=== PATIENT | male | born 1935 | race Caucasian/White ===

== ENCOUNTER 2017-01-19 13:21 | Emergency (ER) | payer MEDICARE, OTHER ==
[2017-01-19 13:26] VITALS: BP 195/105
--- NOTE | 2017-01-19 13:27 | EDM.PDOC ---
ED HPI GENERAL MEDICAL PROBLEM - General Chief Complaint: Laceration Stated Complaint: RAPID RESPONSE Time Seen by Provider: 01/19/17 13:27 - History of Present Illness INITIAL COMMENTS - FREE TEXT/NARRATIVE: 81-year-old male presents to the emergency room after tripping and falling coming into the clinic side of the hospital this afternoon. The patient lost his footing shortly before arrival to the emergency room. The patient was stepping off a curb and fell forward landing on his face. He scratched up his glasses lacerated his skin underneath his right eye and over the right side of the bridge of his nose he also has a laceration inside his mouth. Patient was not knocked out he did not have any dizziness prior to this he is taking aspirin but otherwise is on no other blood thinners. The patient does not have a significant headache at this point and any other injuries. Patient's past medical history is remarkable for open heart bypass surgery done this last one or he is doing well since then he has not any breathing difficulties or shortness of breath no chest pain. - Related Data Allergies Allergy/AdvReac Type Severity Reaction Status Date / Time No Known Allergies Allergy Verified 01/19/17 13:25 Home Meds: Home Meds Acetaminophen [Tylenol] 500 mg PO BID PRN 08/16/15 [History] Bicalutamide [Bicalutamide] 50 mg PO DAILY 08/16/15 [History] Aspirin/Calcium Carbonate/Mag [Aspirin Buffered 325 mg Tab] 325 mg PO DAILY 12/12 [History] Metoprolol Tartrate 25 mg PO BID 11/29/16 [History] Rosuvastatin Calcium 5 mg PO DAILY 11/29/16 [History] Vit A/Vit C/Vit E/Zinc/Copper [Preservision] 1 tab PO BID 01/19/17 [History] amLODIPine [Norvasc] 2.5 mg PO DAILY 01/19/17 [History] Past Medical History HEENT History: Reports: Hard of Hearing, Impaired Vision Cardiovascular History: Reports: Hypertension Genitourinary History: Reports: Prostate Disorder, Other (See Below) Other Genitourinary History: prostate cancer Oncologic (Cancer) History: Reports: Prostate - Past Surgical History Male Surgical History: Reports: Other (See Below) Social & Family History - Tobacco Use Smoking Status *Q: Never Smoker Second Hand Smoke Exposure: No - Caffeine Use Caffeine Use: Reports: Coffee, Tea - Recreational Drug Use Recreational Drug Use: No ED ROS GENERAL - Review of Systems Review Of Systems: See Below Constitutional: Reports: No Symptoms. Denies: Fever, Chills HEENT: Reports: Glasses, Nosebleed, Nose Pain. Denies: Dental Pain, Eye Pain, Hearing Loss, Sinus Problem, Throat Pain, Throat Swelling, Vision Change Respiratory: Reports: No Symptoms Cardiovascular: Reports: No Symptoms GI/Abdominal: Reports: No Symptoms : Reports: No Symptoms Skin: Reports: No Symptoms Neurological: Reports: No Symptoms ED EXAM, SKIN/RASH Exam: See Below Exam Limited By: No Limitations General Appearance: Alert, No Apparent Distress, Other (patient has some obvious facial injuries appear fairly superficial) Eye Exam: Bilateral Eye: EOMI, Normal Inspection, PERRL Ears: Normal External Exam, Normal Canal, Hearing Grossly Normal, Normal TMs, Other (the patient uses hearing aids these were removed for exam) Nose: Other (he has some dried blood from both nares no active bleeding no septal hematoma noted he has a laceration over the right side of the bridge of his nose). No: Nasal Deformity Throat/Mouth: Normal Lips, Normal Oropharynx, No Airway Compromise, Other ( patient has a laceration to the mid size of this oromucosa just beyond the upper lip this is superficial patient declines repair of this) Head: Other (patient has a little bit of facial swelling around his right eye he has a 2.5 cm laceration over the inferolateral orbital rim.) Neck: Normal Inspection, Supple, Non-Tender, Full Range of Motion. No: Lymphadenopathy (L), Lymphadenopathy (R), Tender Lateral, Tender Midline, Thyromegaly Respiratory/Chest: No Respiratory Distress, Lungs Clear, Normal Breath Sounds Cardiovascular: Regular Rate, Rhythm, No Edema, No Murmur GI/Abdominal: Normal Bowel Sounds, Soft, Non-Tender, No Organomegaly, No Distention, No Abnormal Bruit, No Mass Back Exam: Normal Inspection, Full Range of Motion. No: CVA Tenderness (L), CVA Tenderness (R), Muscle Spasm, Paraspinal Tenderness, Vertebral Tenderness Extremities: Normal Inspection, Normal Range of Motion, Non-Tender, No Pedal Edema, Normal Capillary Refill Neurological: Alert, Oriented, CN II-XII Intact, Normal Cognition Psychiatric: Normal Affect, Normal Mood Location, Skin: Face, Other (he is a 2.5 cm laceration below his right eye over the inferolateral orbital rim and a 1.2 cm laceration over the right side of the bridge of his nose) Lymphatic: No Adenopathy ED SKIN PROCEDURES - Laceration/Wound Repair Right Face Lac/wound length in cm: 2.5 Anesthetic Type: local Local anesthesia - Lidocaine (Xylocaine): 1% plain Local anesthetic volume: 2cc Skin prep: saline Exploration/Debridement/Repair: wound explored, in a bloodless field, explored to base Closed with: sutures Suture size: 4-0 # of sutures: 4 Tetanus status addressed: Yes (this is updated) Complication Description: patient had a second laceration over the right side bridge of his nose this was anesthetized with 1 cc of 1% lidocaine without epinephrine 2 simple sutures of 4-0 nylon placed giving good wound approximation Course - Vital Signs Last Recorded V/S: Last Vital Signs Temp 36.4 C 01/19/17 13:22 Pulse 69 01/19/17 13:22 Resp 16 01/19/17 13:22 BP 195/105 H 01/19/17 13:22 Pulse Ox 95 01/19/17 13:22 - Orders/Labs/Meds Orders: Active Orders 24 hr Category Date Time Status Vaccines to be Administered [RC] PER UNIT ROUTINE Care 01/19/17 14:04 Active Meds: Medications Discontinued Medications Generic Name Dose Route Start Last Admin Trade Name Coy PRN Reason Stop Dose Admin Diphtheria/Tetanus/Acell Pertussis 0.5 ml 01/19/17 14:03 Boostrix IM 01/19/17 14:04 .ONCE ONE Lidocaine HCl 50 ml 01/19/17 14:03 01/19/17 14:30 Xylocaine 1% INJECT 01/19/17 14:04 50 ml ONETIME ONE Administration - Re-Assessments/Exams Free Text/Narrative Re-Assessment/Exam: 01/19/17 15:04 patient had a head CT that was unremarkable facial bones shows questionable nasal fracture given the patient is not having pain in this area small metallic bodies were noted in his upper lip on the left side of midline patient has a piece of the chisel and there and a couple other maneuvers cheerier foreign bodies were identified on the scan as well. Patient had the laceration of the bridge of his nose and under his right eye repaired without difficulty he declined closure of the oral mucosa. this is reasonable and should heal without difficulty. Departure - Departure Time of Disposition: 15:05 Disposition: Home, Self-Care 01 Clinical Impression: Head injury, Face lacerations - Discharge Information Forms: ED Department Discharge Additional Instructions: return to the emergency room with any questions or problems. You had a head injury from a fall today. So far your exam and CAT scans are reassuring. However, for the next 12 hours he need very close observation including but awoke and every 2 hours to ensure normal activity and behavior. And close observation for 12 hours after that. Return to the emergency room with any unusual symptoms. Sutures should be removed in 7 days. He can followup in the walk in clinic for this or your regular provider. Your blood pressure was elevated here in the department it sounds like they just put you on a new blood pressure medication followup in the clinic on Monday or Monday for a blood pressure check. - My Orders Last 24 Hours: My Active Orders 01/19/17 14:04 Vaccines to be Administered [RC] PER UNIT ROUTINE - Assessment/Plan Last 24 Hours: My Active Orders 01/19/17 14:04 Vaccines to be Administered [RC] PER UNIT ROUTINE
[2017-01-19] MEDS ORDERED: Diphtheria,Pertussis(Acell),Tetanus Vaccine 0.5 ML SDV inactive IM ONE (14:03)
[2017-01-19] MEDS ORDERED: Lidocaine 1% 50 ML MDV INJECT ONE (14:03)
--- NOTE | 2017-01-19 14:05 | CT ---
Head CT Technique: Multiple axial sections through the brain were obtained. Intravenous contrast was not utilized. Comparison: No previous intracranial imaging. Findings: Ventricles along with basal cisterns and sulci over the convexities are moderately prominent. Mild diminished density is noted within the periventricular and subcortical white matter which is compatible with small vessel ischemic demyelination change. Similar findings are noted within portions of the basal ganglia. No other abnormal parenchymal densities are seen. No evidence of intracranial hemorrhage. No midline shift or mass effect is seen. Bone window settings were reviewed which shows atherosclerotic calcification within the carotid siphon. No acute calvarial abnormality is appreciated. Minimal mucosal thickening is seen within the inferior left mastoid sinus which is likely incidental. Impression: 1. Senescent change as described above. No acute intracranial abnormality is identified. Diagnostic code #2
--- NOTE | 2017-01-19 14:09 | CT ---
CT facial bones Technique: Multiple axial sections through the facial bones were obtained. Reconstructed coronal and sagittal images were also obtained. Findings: Small retention cyst is noted within the left maxillary sinus which is incidental. Minimal mucosal thickening is seen inferiorly within the left mastoid sinus which is incidental. Right and left globes are symmetric. Mild nasal septal deviation is seen. Nasal bone fracture is identified. No additional facial bone fracture is seen. Small metallic foreign body projected within the upper lip to the left of midline. Several other metallic densities are noted within the left side of the parapharyngeal soft tissues. Impression: 1. Incidental sinus findings. 2. Small metallic foreign bodies as described above likely pre-existing. 3. Nasal bone fracture. Diagnostic code #3
== END 2017-01-19 15:52 | disposition home or self-care (01) ==
LOC: JD.ED 13:21
DX: S01.81XA Laceration without foreign body of other part of head, initial encounter (principal); I10 Essential (primary) hypertension; Z85.46 Personal history of malignant neoplasm of prostate; Z79.899 Other long term (current) drug therapy; Z79.82 Long term (current) use of aspirin; W18.09XA Striking against other object with subsequent fall, initial encounter
CPT/HCPCS: 12011; 70450; 70450-26; 70486; 70486-26; 90471; 90715; 99282; 99284-25

== ENCOUNTER 2017-03-05 16:01 | Emergency (ER) | payer MEDICARE, OTHER ==
[2017-03-05] MEDS ORDERED: Sodium Chloride 0.9% 10 ML Syringe FLUSH PRN (16:50)
[2017-03-05] MEDS ORDERED: Sodium Chloride 0.9% 500 ML IV ONE (16:50)
[2017-03-05] MEDS ORDERED: HYDROmorphone 1 MG/ML Syringe ONE (16:55)
[2017-03-05] MEDS: HYDROmorphone 1 MG/ML Syringe IVPUSH ONE ×4 (16:55→19:32)
[2017-03-05] MEDS ORDERED: Sodium Chloride 0.9% 1,000 ML ONE (16:55)
--- NOTE | 2017-03-05 17:05 | EDM.PDOC ---
ED HPI GENERAL MEDICAL PROBLEM - General Chief Complaint: Genitourinary Problem Stated Complaint: [facility] Time Seen by Provider: 03/05/17 16:09 Source of Information: Reports: Patient, EMS, RN Notes Reviewed - History of Present Illness INITIAL COMMENTS - FREE TEXT/NARRATIVE: 81-year-old gentleman has been brought in by ambulance with severe left flank and abdominal pain. He had onset of this several hours ago. He had Been feeling fine earlier today. He has not had major back pain with this. The pain at times is very sharp and stabbing. He has had nausea and vomiting with this as well. He did have some voiding urgency about when the pain started but has not otherwise had any other voiding symptomatology. No hematuria. Fever or chills. He feels like he has had a small hernia developing in the left groin but that does not seem any different today. No chest pain or difficulty breathing. Treatments HEAD ANIMAL TRAINER: Reports: IV/IO, Other (see below) Other Treatments HEAD ANIMAL TRAINER: dilaudid left groin/testicle area Pain Score (Numeric/FACES): 6 - Related Data Allergies Allergy/AdvReac Type Severity Reaction Status Date / Time No Known Allergies Allergy Verified 03/05/17 16:23 Home Meds: Home Meds Acetaminophen [Tylenol] 500 mg PO BID PRN 08/16/15 [History] Bicalutamide [Bicalutamide] 50 mg PO DAILY 08/16/15 [History] Aspirin/Calcium Carbonate/Mag [Aspirin Buffered 325 mg Tab] 325 mg PO DAILY 12/12 [History] Metoprolol Tartrate 25 mg PO BID 11/29/16 [History] Rosuvastatin Calcium 5 mg PO DAILY 11/29/16 [History] Vit A/Vit C/Vit E/Zinc/Copper [Preservision] 1 tab PO BID 01/19/17 [History] amLODIPine [Norvasc] 2.5 mg PO DAILY 01/19/17 [History] Multivitamin [Multivitamins] 1 each PO DAILY 03/05/17 [History] Past Medical History HEENT History: Reports: Hard of Hearing, Impaired Vision, Otitis Media Cardiovascular History: Reports: Bypass, Hypertension, MT, Other (See Below) Other 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 Genitourinary History: Reports: Prostate Disorder, Other (See Below) Other Genitourinary History: prostate cancer Oncologic (Cancer) History: Reports: Prostate, Other (See Below) Other Oncologic History: with prostate seed placement - Past Surgical History Cardiovascular Surgical History: Reports: Coronary Artery Bypass GI Surgical History: Reports: Appendectomy Male Surgical History: Reports: Other (See Below) Other Male Surgeries/Procedures: hernia repair Social & Family History - Family History Family Medical History: Noncontributory - Tobacco Use Smoking Status *Q: Never Smoker Used Tobacco, but Quit: Yes Month Tobacco Last Used: 60 yrs ago Second Hand Smoke Exposure: No - Caffeine Use Caffeine Use: Reports: Coffee - Recreational Drug Use Recreational Drug Use: No ED ROS GENERAL - Review of Systems Review Of Systems: See Below Constitutional: Denies: Fever, Chills, Diaphoresis HEENT: Reports: No Symptoms Respiratory: Denies: Shortness of Breath, Pleuritic Chest Pain Cardiovascular: Denies: Chest Pain, Lightheadedness GI/Abdominal: Reports: Abdominal Pain (Left flank), Nausea, Vomiting. Denies: Diarrhea, Hematochezia, Melena : Reports: Urgency (Gone). Denies: Dysuria, Hematuria Musculoskeletal: Denies: Back Pain, Leg Pain Skin: Reports: No Symptoms Neurological: Reports: No Symptoms ED EXAM, RENAL/ - Physical Exam Exam: See Below Exam Limited By: No Limitations General Appearance: Alert, Moderate Distress Eye Exam: Bilateral Eye: PERRL Throat/Mouth: Normal Inspection, Other (Oral mucosa is quite dry) Head: Atraumatic. No: Facial Swelling Neck: Supple, Full Range of Motion Respiratory/Chest: No Respiratory Distress, Lungs Clear, Normal Breath Sounds Cardiovascular: Regular Rate, Rhythm GI/Abdominal: Soft, Tender (Mild tenderness left lower quadrant) Back Exam: CVA Tenderness (L) (Mild) Extremities: Normal Inspection, Normal Range of Motion. No: Pedal Edema, Leg Pain Neurological: Alert, Oriented, No Motor/Sensory Deficits Skin Exam: Warm, Dry, Normal Color Course - Vital Signs Last Recorded V/S: Last Vital Signs Temp 97.2 F 03/05/17 19:23 Pulse 79 03/05/17 19:23 Resp 20 03/05/17 19:23 BP 120/93 H 03/05/17 19:23 Pulse Ox 96 03/05/17 19:23 - Orders/Labs/Meds Orders: Active Orders 24 hr Category Date Time Status Peripheral IV Care [RC] . DIRECTED Care 03/05/17 16:50 Active Levofloxacin/Dextrose 5%-Water [Levaquin in D5W 500 MG/ Med 03/05/17 19:03 Active 100 ML] 500 mg Premix Bag 1 bag IV ONETIME Sodium Chloride 0.9% [Saline Flush] Med 03/05/17 16:50 Active 10 ml FLUSH ASDIRECTED PRN Peripheral IV Insertion Adult [OM.PC] Stat Oth 03/05/17 16:49 Ordered Medication Orders Levofloxacin/Dextrose 500 mg/ (Premix) 100 mls @ 100 mls/hr IV ONETIME ONE Stop: 03/05/17 20:02 Last Admin: 03/05/17 19:16 Dose: 100 mls/hr Sodium Chloride (Saline Flush) 10 ml FLUSH ASDIRECTED PRN PRN Reason: Keep Vein Open Last Admin: 03/05/17 16:58 Dose: 10 ml Labs: Laboratory Tests 03/05/17 03/05/17 Range/Units 17:25 17:25 WBC 7.77 (4.23-9.07) K/mm3 RBC 4.17 L (4.63-6.08) M/mm3 Hgb 12.7 L (13.7-17.5) gm/L Hct 38.1 L (40.1-51.0) % MCV 91.4 (79.0-92.2) fl MCH 30.5 (25.7-32.2) pg MCHC 33.3 (32.2-35.5) g/dl RDW Std Deviation 43.9 (35.1-43.9) fL Plt Count 180 (163-337) K/mm3 MPV 10.2 (9.4-12.3) fl Neut % (Auto) 90.1 H (34.0-67.9) % Lymph % (Auto) 6.2 L (21.8-53.1) % Gregg % (Auto) 3.3 L (5.3-12.2) % Eos % (Auto) 0 L (0.8-7.0) Baso % (Auto) 0.3 (0.1-1.2) % Neut # (Auto) 7.00 H (1.78-5.38) K/mm3 Lymph # (Auto) 0.48 L (1.32-3.57) K/mm3 Gregg # (Auto) 0.26 L (0.30-0.82) K/mm3 Eos # (Auto) 0.00 L (0.04-0.54) K/mm3 Baso # (Auto) 0.02 (0.01-0.08) K/mm3 Manual Slide Review Abnormal smear Sodium 142 (136-145) mEq/L Potassium 3.8 (3.5-5.1) mEq/L Chloride 106 (98-107) mEq/L Carbon Dioxide 26 (21-32) mEq/L Anion Gap 13.8 (5-15) BUN 18 (7-18) mg/dL Creatinine 1.3 (0.7-1.3) mg/dL Est Cr Clr Drug Dosing 44.46 mL/min Estimated GFR (MDRD) 53 (>60) mL/min BUN/Creatinine Ratio 13.8 L (14-18) Glucose 130 H (83-115) mg/dL Calcium 9.2 (8.5-10.1) mg/dL Total Bilirubin 0.6 (0.2-1.0) mg/dL AST 21 (15-37) U/L ALT 18 (16-63) U/L Alkaline Phosphatase 70 (46-116) U/L C-Reactive Protein < 0.2 (<1.0) mg/dL Total Protein 7.4 (6.4-8.2) g/dl Albumin 4.1 (3.4-5.0) g/dl Globulin 3.3 gm/dL Albumin/Globulin Ratio 1.2 (1-2) Meds: Medications Generic Name Dose Route Start Last Admin Trade Name Freq PRN Reason Stop Dose Admin Levofloxacin/Dextrose 500 mg/ 100 mls @ 100 mls/hr 03/05/17 19:03 03/05/17 19 :16 Premix IV 03/05/17 20:02 100 mls/hr ONETIME ONE Administration Sodium Chloride 10 ml 03/05/17 16:50 03/05/17 16:58 Saline Flush FLUSH 10 ml ASDIRECTED PRN Administration Keep Vein Open Discontinued Medications Generic Name Dose Route Start Last Admin Trade Name Freq PRN Reason Stop Dose Admin Hydromorphone HCl 1 mg 03/05/17 16:50 03/05/17 19:32 Dilaudid IVPUSH 03/05/17 16:51 0.25 mg ONETIME ONE Administration Hydromorphone HCl Confirm 03/05/17 16:55 03/05/17 16:56 Dilaudid Administered 03/05/17 16:56 Not Given Dose 1 mg .ROUTE .STK-MED ONE Sodium Chloride 500 mls @ 999 mls/hr 03/05/17 16:50 03/05/17 16:58 Normal Saline IV 03/05/17 17:20 999 mls/hr .BOLUS ONE Administration Sodium Chloride Confirm 03/05/17 16:55 03/05/17 16:58 Normal Saline Administered 03/05/17 16:56 Not Given Dose 1,000 mls @ as directed .ROUTE .STK-MED ONE Ondansetron HCl 4 mg 03/05/17 19:07 03/05/17 19:17 Zofran IVPUSH 03/05/17 19:08 4 mg ONETIME ONE Administration Tamsulosin HCl 0.4 mg 03/05/17 19:03 03/05/17 19:06 Flomax PO 03/05/17 19:04 0.4 mg ONETIME ONE Administration Tamsulosin HCl Confirm 03/05/17 19:08 03/05/17 19:17 Flomax Administered 03/05/17 19:09 Not Given Dose 0.4 mg .ROUTE .STK-MED ONE - Re-Assessments/Exams Free Text/Narrative Re-Assessment/Exam: 03/05/17 18:54 Radiology report statrs 6 mm proximal stone with evidence of ruptere of the pelvicalyceal system with fluid in the lower left pararenal space, see radiology report for details. 03/05/17 19:31, I have discussed this with Urologist on-call for [facility]. He does recommend transfer this evening. He recommends Flomax 0.4 mg oral and then also to start on IV antibiotics. Levaquin 500 milligrams IV has been prescribed and started. I have visited with Dr. Milner, Hospitalist global expansion sales director who does accept patient for transfer, direct admission. He will be transferred by ground ambulance. Departure - Departure Time of Disposition: 19:29 Disposition: DC/Tfer to [facility] 02 Condition: Serious Clinical Impression: Kidney stone on left side, Renal colic on left side - Discharge Information Referrals: J Carlos Howard MD [Primary Care Provider] - Forms: ED Department Discharge - My Orders Last 24 Hours: My Active Orders 03/05/17 16:49 Peripheral IV Insertion Adult [OM.PC] Stat 03/05/17 16:50 Peripheral IV Care [RC] . DIRECTED Sodium Chloride 0.9% [Saline Flush] 10 ml FLUSH ASDIRECTED PRN 03/05/17 19:03 Levofloxacin/Dextrose 5%-Water [Levaquin in D5W 500 MG/100 ML] 500 mg Premix Bag 1 bag IV ONETIME - Assessment/Plan Last 24 Hours: My Active Orders 03/05/17 16:49 Peripheral IV Insertion Adult [OM.PC] Stat 03/05/17 16:50 Peripheral IV Care [RC] . DIRECTED Sodium Chloride 0.9% [Saline Flush] 10 ml FLUSH ASDIRECTED PRN 03/05/17 19:03 Levofloxacin/Dextrose 5%-Water [Levaquin in D5W 500 MG/100 ML] 500 mg Premix Bag 1 bag IV ONETIME
--- NOTE | 2017-03-05 18:11 | CT ---
CT abdomen and pelvis Technique: Multiple axial sections were obtained from above the kidneys inferiorly through the pubic symphysis. Intravenous and oral contrast not utilized. Study has been performed as a ureteral stone protocol. Findings: Obstructing stone is noted within the proximal left ureter slightly past the UPJ measuring approximately 6 mm in size. There is evidence of rupture of the pelvicalyceal system with fluid being seen within the lower left pararenal space. Hydronephrosis is noted of the left kidney. No other abnormal calcifications are seen along the course of the ureters. Nonobstructing stone noted within the lower right kidney measuring 5 mm in size. Small nonobstructing calculus noted within the mid left kidney measuring about 2.5 mm. Small nonobstructing stone within the lower left kidney measuring 4.6 mm. Visualized lung bases show some emphysematous change. Low-density is lesion noted within the left lobe of the liver compatible with a cyst measuring 1.2 cm. No additional abnormality is appreciated within the visualized liver. Adrenal glands show no nodule. Spleen appears normal. Aorta shows atherosclerotic change which continues into the iliac vessels. No aneurysm is seen. No pelvic mass or adenopathy is seen. Radiation implant seeds are noted within the prostate gland. Fat-containing left inguinal hernia is incidentally noted. Bone window settings were reviewed which shows scattered degenerative change within the spine. Mild spondylolisthesis is noted at L3-L4 compatible with degenerative apophyseal change. Impression: 1. Obstructing stone within the proximal left ureter measuring approximately 6 mm. There is evidence of rupture of the pelvicalyceal system with urine being seen within the left lower pararenal space. 2. Nonobstructing calculi are seen within both kidneys. 3. Other incidental findings as described above. Diagnostic code #3
[2017-03-05] MEDS ORDERED: Tamsulosin 0.4 MG Cap.ER PO ONE (19:03)
[2017-03-05] MEDS ORDERED: Levofloxacin/Dextrose 5%-Water 500 MG in Premix Bag 1 BAG IV ONE (19:03)
[2017-03-05] MEDS ORDERED: Ondansetron 4 MG/2 ML SDV IVPUSH ONE (19:07)
[2017-03-05] MEDS ORDERED: Tamsulosin 0.4 MG Cap.ER ONE (19:08)
[2017-03-05 19:28] VITALS: BP 120/93
== END 2017-03-05 19:50 ==
LOC: JD.ED 16:01
DX: N13.2 Hydronephrosis with renal and ureteral calculous obstruction (principal); I10 Essential (primary) hypertension; I25.2 Old myocardial infarction; Z95.1 Presence of aortocoronary bypass graft; Z79.82 Long term (current) use of aspirin; Z79.899 Other long term (current) drug therapy
CPT/HCPCS: 36415; 74176; 80053; 85025; 86140; 96361; 96365; 96375; 96376; 99285; A9270; J1170; J1956; J2405; J7040; J7050; 99284

== ENCOUNTER 2018-10-08 17:04 | Emergency (ER) | payer MEDICARE, OTHER ==
[2018-10-08 17:23] VITALS: BP 162/70
--- NOTE | 2018-10-08 17:52 | EDM.PDOC ---
ED HPI GENERAL MEDICAL PROBLEM - General Chief Complaint: Lower Extremity Injury/Pain Stated Complaint: GROIN PAIN Time Seen by Provider: 10/08/18 17:14 Source of Information: Reports: Patient, Family (Daughter), RN Notes Reviewed History Limitations: Reports: No Limitations - History of Present Illness INITIAL COMMENTS - FREE TEXT/NARRATIVE: The patient states that he developed right groin pain (the patient indicates his proximal anteromedial right thigh, not his groin) around 10:00 this morning , and that is progressively getting worse. He denies any tingling or numbness to the right lower extremity, and states that while he is having difficulty walking due to pain, he denies having any weakness of the right lower extremity. The patient denies any injury to the area, but does acknowledges that he shoveled a small amount of snow yesterday last night, but states that he did not hurt himself. The patient's daughter states that the patient has been told in the past to not shovel snow. The patient reports having the same symptoms to the same area on both sides 4 or 5 years ago, and states that he was told at the time that it was due to hypokalemia. He states that he was given IV fluid and told to eat bananas, and his symptoms resolved. The patient reports that he has a history of kidney stones, but states that his current pain is very different than his presentation at that time. The patient states that he took some Tylenol this morning, then a second dose around 16:00 this afternoon. The patient's PCP is Dr. Rockwell. His Accounts Receivable Coordinator is Dr. Walker. His Oncologist is Dr. Brooke. 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 CLEANER: Reports: Acetaminophen Right Leg Pain Score (Numeric/FACES): 9 - Related Data Allergies Allergy/AdvReac Type Severity Reaction Status Date / Time No Known Allergies Allergy Verified 10/08/18 17:20 Home Meds: Home Meds Acetaminophen [Tylenol] 500 mg PO BID PRN 08/16/15 [History] Bicalutamide 50 mg PO DAILY 08/16/15 [History] Aspirin/Calcium Carbonate/Mag [Aspirin Buffered 325 mg Tab] 325 mg PO DAILY 12/12 [History] Metoprolol Tartrate 25 mg PO BID 11/29/16 [History] Rosuvastatin Calcium 5 mg PO BEDTIME 11/29/16 [History] Vit A/Vit C/Vit E/Zinc/Copper [Preservision] 1 tab PO BID 01/19/17 [History] amLODIPine [Norvasc] 2.5 mg PO DAILY 01/19/17 [History] Multivitamin [Multivitamins] 1 each PO DAILY 03/05/17 [History] Calcium Carb/Vit D3/Minerals [Calcium 600+D Plus Minerals] 1 each PO BID [History] Levothyroxine [Synthroid] 50 mcg PO ACBREAKFAST 10/08/18 [History] Past Medical History HEENT History: Reports: Hard of Hearing, Impaired Vision Cardiovascular History: Reports: CAD, High Cholesterol, Hypertension, [place] (2016) Genitourinary History: Reports: Renal Calculus Endocrine/Metabolic History: Reports: Hypothyroidism Oncologic (Cancer) History: Reports: Prostate - Past Surgical History Cardiovascular Surgical History: Reports: Coronary Artery Bypass (x 3 vessel, ) GI Surgical History: Reports: Appendectomy, Hernia, Inguinal (left), Other (See Below) (Rectal reconstruction following trauma) Male Surgical History: Reports: Other (See Below) (Prostate radioactive seed implants) Musculoskeletal Surgical History: Reports: Shoulder Surgery (right, open) Social & Family History - Family History Family Medical History: Noncontributory - Tobacco Use Smoking Status *Q: Former Smoker Years of Tobacco use: 9 Packs/Tins Daily: 1 Month/Year Tobacco Last Used: Quit around 1961 - Caffeine Use Caffeine Use: Reports: Coffee - Alcohol Use Alcohol Use History: No - Recreational Drug Use Recreational Drug Use: No - Living Situation & Occupation Living situation: Reports: , Alone Occupation: Retired Review of Systems - Review of Systems Review Of Systems: ROS reveals no pertinent complaints other than HPI. ED EXAM, GENERAL - Physical Exam Exam: See Below Exam Limited By: No Limitations General Appearance: Alert, WD/WN, No Apparent Distress Eye Exam: Bilateral Eye: EOMI, Normal Inspection Ears: Normal External Exam, Hearing Loss Nose: Normal Inspection Throat/Mouth: Normal Inspection, Normal Lips, Normal Voice, No Airway Compromise Head: Atraumatic, Normocephalic Neck: Normal Inspection, Full Range of Motion Respiratory/Chest: No Respiratory Distress, Lungs Clear, Normal Breath Sounds, No Accessory Muscle Use Cardiovascular: Normal Peripheral Pulses, Regular Rate, Rhythm, No Edema, No Gallop, No JVD, No Murmur, No Rub Peripheral Pulses: 4+: Radial (L), Radial (R), Femoral (L), Femoral (R), Popliteal (R), Posterior Tibial (R), Dorsalis Pedis (R) GI/Abdominal: Normal Bowel Sounds, Soft, Non-Tender, No Organomegaly, No Distention, No Abnormal Bruit, No Mass (Male) Exam: No Hernia, Normal Inspection Rectal (Males) Exam: Deferred Extremities: Normal Inspection, Normal Range of Motion, Non-Tender, No Pedal Edema, Normal Capillary Refill, Other (Well-healed scar to the right proximal anteromedial thigh, with a palpable lump deep to the scar that the patient states has been there ever since his CABG in 2017. There is reproducible tenderness to this area. Strong bilateral femoral pulses. Strong right popliteal, posterior tibialis, and dorsalis pedis pulses. The patient's right lower extremity is warm and well perfused, essentially the same as the left lower extremity.) Neurological: Alert, Oriented, Normal Cognition, No Motor/Sensory Deficits Psychiatric: Normal Affect Skin Exam: Warm, Dry, Intact, Normal Color, No Rash Course - Vital Signs Last Recorded V/S: Last Vital Signs Temp 36.6 C 10/08/18 17:16 Pulse 69 10/08/18 17:16 Resp 16 10/08/18 17:16 BP 162/70 H 10/08/18 17:16 Pulse Ox 100 10/08/18 17:16 - Re-Assessments/Exams Free Text/Narrative Re-Assessment/Exam: 10/08/18 17:45 The cause of the patient's right proximal medial thigh pain and tenderness is not immediately clear. He has good femoral and distal pulses to the right lower extremity, and his right lower extremity is just as warm as his left. He has no neurologic symptoms, such as tingling, numbness, or weakness, therefore I don't believe that his pain is neurovascular in etiology. It appears to be musculoskeletal in etiology, likely due to pulling a muscle when shoveling snow last night, but I want to be sure that I am not missing something. 10/08/18 17:[address] Zoey Ceja at 17:46. She will come by the ED to evaluate the patient. 10/08/18 18:07 Dr. Ceja evaluated the patient and agrees that the cause of the patient's pain appears to be musculoskeletal in etiology. She finds no femoral or inguinal hernia, nor does she find any neurovascular explanation for the patient 's symptoms. I will discharge the patient home with recommendation that he take [id number] ibuprofen and use a heating pad. Departure - Departure Time of Disposition: 18:10 Disposition: Home, Self-Care 01 Condition: Good Clinical Impression: Muscle strain of right thigh - Discharge Information *PRESCRIPTION DRUG MONITORING PROGRAM REVIEWED*: Not Applicable *COPY OF PRESCRIPTION DRUG MONITORING REPORT IN PATIENT LASHA: Not Applicable Referrals: Brandon Rockwell MD [Primary Care Provider] - Forms: ED Department Discharge Additional Instructions: You were seen in the emergency room for pain in your right upper thigh. You were evaluated by the surgeon Dr. Zoey Ceja. Based on your history and physical examination, the cause of your pain appears to be due to the strain of one of your thigh muscles. We recommend that you take [id number] ibuprofen, 1-2 tablets (200-400 mg) every 8 hours, with food, as needed for discomfort. We recommend that you try applying heat to the area, such as with a heating pad , but be careful to not burn yourself. You may resume your usual activities, however, we strongly recommend that you not shovel snow. If your symptoms persist, or worsen, please follow-up with your PCP, Dr. Brandon Rockwell. If any other problems, please do not hesitate to return to the ER.
== END 2018-10-08 18:19 | disposition home or self-care (01) ==
LOC: JD.ED 17:04
DX: S76.911A Strain of unspecified muscles, fascia and tendons at thigh level, right thigh, initial encounter (principal); E78.00 Pure hypercholesterolemia, unspecified; I25.10 Atherosclerotic heart disease of native coronary artery without angina pectoris; I25.2 Old myocardial infarction; E03.9 Hypothyroidism, unspecified; Z87.891 Personal history of nicotine dependence; Z79.899 Other long term (current) drug therapy; Z79.82 Long term (current) use of aspirin; X58.XXXA Exposure to other specified factors, initial encounter
CPT/HCPCS: 99282; 99283

== ENCOUNTER 2018-11-05 10:06 | Emergency (ER) | payer MEDICARE, OTHER ==
[2018-11-05 10:11] VITALS: BP 148/56
--- NOTE | 2018-11-05 11:54 | EDM.PDOC ---
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 Over the past few months the pain has grown increasingly worse. He was seen by Dr. Ricci orthopedic surgeon approximately 14 days ago and had 2 shots to the right knee. He states one was a lubricant and the other was a steroid. He did have significant relief at that time. Unfortunately the pain came back quite intense approximately 3 days later. He has been taking Dilaudid 2 mg every 3 hours with intermittent relief of discomfort. Over the past 3 days he's noticed the pain grown increasingly worse. At times he does become nauseated because of the severe pain. Denies any recent fall that may have precipitated the discomfort. He does have some swelling to the lower extremities bilaterally with no significant change noted to the right incomparison to the left. He does not have any history of DVT or PE per patient. He has been in contact multiple times to 's office today with inability to schedule an appt. X-ray of the right knee was obtained approximately one month ago with arthritic changes noted. Patient also complains of some pain to the medial aspect of his right upper leg. He did have bypass and states they harvested the GSV on the right side. States the pain to this affected region has grown increasingly worse.He currently denies any fever , chills, chest pain, shortness of breath, abdominal pain, dysuria, n/t to extremities, and/or any additional complaints. He has undergone radiation therapy for the prostate cancer and also a few chemo treatments. Right Leg Pain Score (Numeric/FACES): 10 - Related Data Allergies Allergy/AdvReac Type Severity Reaction Status Date / Time No Known Allergies Allergy Verified 11/05/18 10:12 Home Meds: Home Meds Acetaminophen [Tylenol] 500 mg PO BID PRN 08/16/15 [History] Aspirin/Calcium Carbonate/Mag [Aspirin Buffered 325 mg Tab] 325 mg PO DAILY 12/12 [History] Metoprolol Tartrate 25 mg PO BID 11/29/16 [History] Vit A/Vit C/Vit E/Zinc/Copper [Preservision] 1 tab PO BID 01/19/17 [History] amLODIPine [Norvasc] 2.5 mg PO DAILY 01/19/17 [History] Multivitamin [Multivitamins] 1 each PO DAILY 03/05/17 [History] Calcium Carb/Vit D3/Minerals [Calcium 600+D Plus Minerals] 1 each PO BID [History] Levothyroxine [Synthroid] 50 mcg PO ACBREAKFAST 10/08/18 [History] Enzalutamide [Xtandi] 160 mg PO DAILY 11/05/18 [History] HYDROmorphone [Dilaudid] 2 mg PO Q3H PRN 11/05/18 [History] Rosuvastatin [Crestor] 5 mg PO DAILY 11/05/18 [History] Past Medical History HEENT History: Reports: Hard of Hearing, Impaired Vision Cardiovascular History: Reports: CAD, High Cholesterol, Hypertension, [place] Other 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 Genitourinary History: Reports: Renal Calculus Other Genitourinary History: prostate cancer Endocrine/Metabolic History: Reports: Hypothyroidism Oncologic (Cancer) History: Reports: Prostate Other Oncologic History: with bone mets - Past Surgical History Cardiovascular Surgical History: Reports: Coronary Artery Bypass GI Surgical History: Reports: Appendectomy, Hernia, Inguinal, Other (See Below) Male Surgical History: Reports: Other (See Below) Musculoskeletal Surgical History: Reports: Shoulder Surgery Social & Family History - Family History Family Medical History: Noncontributory - Tobacco Use Smoking Status *Q: Never Smoker - Caffeine Use Caffeine Use: Reports: Coffee - Recreational Drug Use Recreational Drug Use: No - Living Situation & Occupation Living situation: Reports: , Alone Occupation: Retired Review of Systems - Review of Systems Review Of Systems: ROS reveals no pertinent complaints other than HPI. ED EXAM, GENERAL - Physical Exam Exam: See Below Exam Limited By: No Limitations General Appearance: Alert, WD/WN, No Apparent Distress Ears: Hearing Grossly Normal Nose: Normal Inspection Throat/Mouth: Normal Voice, No Airway Compromise Head: Atraumatic, Normocephalic Neck: Normal Inspection, Supple Respiratory/Chest: No Respiratory Distress, Lungs Clear, Normal Breath Sounds, No Accessory Muscle Use, Chest Non-Tender Cardiovascular: Normal Peripheral Pulses, Regular Rate, Rhythm, No Murmur ( Obvious) Peripheral Pulses: 1+: Posterior Tibial (L), Posterior Tibial (R), 2+: Radial (L ), Radial (R) GI/Abdominal: Normal Bowel Sounds, Soft, Non-Tender, No Organomegaly, No Distention Extremities: Normal Inspection, Other (Pain to the proximal third of the right lower leg through the right knee and also into the right upper leg into the groin region. No snuff can swelling noted. No redness, open sores, and/or sensory changes noted. With movement of the right knee there is some pain localized to this region. No pain with palpation of the right hip or distal aspect of the lower extremity.) Neurological: Alert, Oriented, CN II-XII Intact, Normal Cognition, No Motor/ Sensory Deficits. No: Normal Gait Psychiatric: Normal Affect, Normal Mood Skin Exam: Warm, Dry, Intact, Normal Color, No Rash Course - Vital Signs Last Recorded V/S: Last Vital Signs Temp 97.9 F 11/05/18 10:09 Pulse 69 11/05/18 10:09 Resp 16 11/05/18 10:09 BP 148/56 H 11/05/18 10:09 Pulse Ox 99 11/05/18 10:09 - Orders/Labs/Meds Labs: Laboratory Tests 11/05/18 11/05/18 11/05/18 Range/Units 12:28 12:28 12:28 WBC 5.94 (4.23-9.07) K/mm3 RBC 4.23 L (4.63-6.08) M/mm3 Hgb 13.2 L (13.7-17.5) gm/L Hct 39.9 L (40.1-51.0) % MCV 94.3 H (79.0-92.2) fl MCH 31.2 (25.7-32.2) pg MCHC 33.1 (32.2-35.5) g/dl RDW Std Deviation 43.8 (35.1-43.9) fL Plt Count 256 (163-337) K/mm3 MPV 9.6 (9.4-12.3) fl Neutrophils % (Manual) 60 (40-60) % Band Neutrophils % 1 (0-10) % Lymphocytes % (Manual) 26 (20-40) % Atypical Lymphs % 0 % Monocytes % (Manual) 11 H (2-10) % Eosinophils % (Manual) 2 (0.8-7.0) % Basophils % (Manual) 0 L (0.2-1.2) Platelet Estimate Adequate RBC Morph Comment Normal PT 10.8 (9.5-12.1) SECONDS INR 0.99 APTT 26 (24-31) SECONDS Sodium 135 L (136-145) mEq/L Potassium 4.4 (3.5-5.1) mEq/L Chloride 99 (98-107) mEq/L Carbon Dioxide 27 (21-32) mEq/L Anion Gap 13.4 (5-15) BUN 19 H (7-18) mg/dL Creatinine 1.0 (0.7-1.3) mg/dL Est Cr Clr Drug Dosing 56.78 mL/min Estimated GFR (MDRD) > 60 (>60) mL/min BUN/Creatinine Ratio 19.0 H (14-18) Glucose 102 (83-115) mg/dL Calcium 9.6 (8.5-10.1) mg/dL Total Bilirubin 0.4 (0.2-1.0) mg/dL AST 22 (15-37) U/L ALT 26 (16-63) U/L Alkaline Phosphatase 43 L (46-116) U/L Total Protein 7.0 (6.4-8.2) g/dl Albumin 3.6 (3.4-5.0) g/dl Globulin 3.4 gm/dL Albumin/Globulin Ratio 1.1 (1-2) Meds: Medications Discontinued Medications Generic Name Dose Route Start Last Admin Trade Name Sajanq PRN Reason Stop Dose Admin Fentanyl 12 mcg 11/05/18 13:55 11/05/18 14:30 Duragesic TRDERM 11/05/18 13:56 12 mcg ONETIME ONE Administration Hydromorphone HCl 1 mg 11/05/18 12:44 11/05/18 12:52 Dilaudid IVPUSH 11/05/18 12:45 1 mg ONETIME ONE Administration - Re-Assessments/Exams Free Text/Narrative Re-Assessment/Exam: IV has been established. Initial labs and studies will include: CBC, chem 14, coag studies, x-ray of the right femur, hip, knee along with a VL duplex of the right lower extremity. Patient complaining of some increasing pain. Dilaudid was ordered per nursing staff. X-ray of the right femur revealed no acute findings. X-ray of the pelvis and right hip no acute findings noted. X-ray of the right knee indicating no acute findings. US/VL Duplex impression: No evidence of dvt within the right lower extremity or left common vein. Simple cystic structure within the medial right thigh with measurements as noted above. This is nonspecific most likely represents old liquiefied hematoma. 11/05/18 13:54 I have spoken with Dr. Rockwell patients PCP. Agreed with starting the patient on fentanyl patch. Have the patient follow-up in his clinic for reevaluation this week if able. He believes patient should undergo a bone scan but notes the patient is unable to lay flat for that long. Appt has been arranged for tomorrow at 945 a.m. patient is well aware that taking the Dilaudid with a final patch while cause increased drowsiness thus increasing the risk for fall. At worst patient can overdose on pain medications and stopped breathing. Patient has voiced his understanding. Return precautions were discussed with the patient and family. They will return back to ED if he develops any new or worsening symptoms. I have offered to admit the patient for placement of a assisted for pain management and physical therapy. The patient has refused. They will speak with PCP tomorrow and discuss further options at that time. Departure - Departure Time of Disposition: 13:58 Disposition: Home, Self-Care 01 Condition: Good Clinical Impression: Right thigh pain, Hip pain, right Knee pain, chronic Qualifiers: Laterality: right Qualified Code(s): M25.561 - Pain in right knee - Discharge Information Instructions: Knee Pain, Adult, Chronic Pain, Adult, Musculoskeletal Pain, Pain Medicine Instructions, [id number] Referrals: Brandon Rockwell MD [Primary Care Provider] - Forms: ED Department Discharge Additional Instructions: I have arranged appointment with Dr. Rockwell for tomorrow at 945 am for reevaluation. We will try starting you on a Fentanyl patch for further pain management. Be aware taking this medication along with Dilaudid together will cause increased drowsiness and increase her risk of falling. I would be very cognizant of how much narcotics you are taking. I would utilize Tylenol with experiencing moderate to mild discomfort. For severe pain may take Dilaudid. Take the Dilaudid at the prescribed dose. Be aware this will also increase her risk of developing constipation and thus suggest taking MiraLAX one capful every day. Please continue to refrain from any activities that cause worsening pain. Utilize walker when ambulating. Please return to the E.D. if you develop any new or worsening symptoms.
--- NOTE | 2018-11-05 12:41 | CR ---
Right femur: AP and lateral views of the right femur were obtained. Comparison: No prior femur exam. Vascular calcification is noted. Mild osteophytes are noted off the medial joint of the knee. Incidental bipartite patella. Moderate joint space narrowing is noted within the medial knee. Radiation implant seeds are noted within the prostate gland. No acute fracture or other bony abnormality is seen. Impression: 1. Incidental findings. Nothing acute is seen on two-view right femur study. Diagnostic code #2
[2018-11-05] MEDS ORDERED: HYDROmorphone 1 MG/ML Syringe IVPUSH ONE (12:44)
--- NOTE | 2018-11-05 12:44 | CR ---
Pelvis and right hip: AP view of the pelvis was obtained as well as AP and frog-leg lateral views of the right hip. Comparison: No previous study. Degenerative change is noted within the lumbar spine. Slight degenerative change is noted within the right sacroiliac joint. Radiation implant seeds are incidentally noted. Joint spaces within both hips are maintained. No acute fracture or other bony abnormality is identified. Impression: 1. 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 2. Incidental radiation implant seeds within the prostate gland. 3. AP pelvis and two-view right hip study are otherwise unremarkable. Diagnostic code #2
--- NOTE | 2018-11-05 12:44 | CR ---
Right knee: AP, lateral and sunrise patellar views of the right knee were obtained. Comparison: No prior knee exam. Medial joint space narrowing is seen. Mild medial osteophytes are noted. Incidental old bipartite patella is noted. Vascular calcification is seen. No joint effusion is noted. No acute fracture or other abnormality is seen. Impression: 1. Degenerative change as noted above. 2. Other incidental findings. Diagnostic code #2
--- NOTE | 2018-11-05 13:15 | US ---
Right lower extremity deep venous ultrasound: Duplex and color flow imaging was obtained of the right common femoral, proximal greater saphenous, superficial femoral, popliteal, posterior tibial and peroneal veins. Left common femoral vein was also evaluated. Findings: Normal phasic flow, augmentation and compression are seen. Simple appearing cystic structure identified within the medial right thigh measuring 4.5 x 2.2 x 2.5 cm. Impression: 1. No evidence of deep venous thrombosis within the right lower extremity or left common femoral vein. 2. Simple cystic structure within the medial right thigh with measurements as noted above. This is nonspecific but most likely represents an old liquefied hematoma. Diagnostic code #3
[2018-11-05] MEDS ORDERED: fentaNYL 12 MCG/HR Transdermal Patch TRDERM ONE (13:55)
== END 2018-11-05 14:42 | disposition home or self-care (01) ==
LOC: JD.ED 10:06
DX: M25.561 Pain in right knee (principal); M25.551 Pain in right hip; M79.651 Pain in right thigh; C61 Malignant neoplasm of prostate; C79.51 Secondary malignant neoplasm of bone; I10 Essential (primary) hypertension; I25.10 Atherosclerotic heart disease of native coronary artery without angina pectoris; I25.2 Old myocardial infarction; Z95.1 Presence of aortocoronary bypass graft; E03.9 Hypothyroidism, unspecified; Z79.899 Other long term (current) drug therapy; Z90.49 Acquired absence of other specified parts of digestive tract; Z79.82 Long term (current) use of aspirin
CPT/HCPCS: 36415; 73502; 73552; 73562; 80053; 85007; 85027; 85610; 85730; 93971; 96374; 99284; A9270; J1170

== ENCOUNTER 2020-06-27 05:02 | Inpatient (IN) | payer MEDICARE, OTHER ==
[2020-06-27] MEDS ORDERED: HYDROmorphone 0.5 MG/0.5 ML Syringe IVPUSH ONE ×3 (05:11→07:38)
[2020-06-27] MEDS ORDERED: Ondansetron 4 MG/2 ML SDV IVPUSH ONE (05:11)
[2020-06-27] MEDS ORDERED: Sodium Chloride 0.9% 1,000 ML IV SCH (05:15)
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
[2020-06-27] MEDS ORDERED: Lactated Ringers 1,000 ML IV SCH (07:30)
[2020-06-27] MEDS ORDERED: Levofloxacin/Dextrose 5%-Water 750 MG in Premix Bag 1 BAG IV ONE (07:55)
[2020-06-27] MEDS ORDERED: Iopamidol 755 Mg/ML 100 ML Bottle IVPUSH ONE (08:18)
[2020-06-27] MEDS ORDERED: Sodium Chloride 0.9% 10 ML Syringe FLUSH ONE (08:18)
[2020-06-27] MEDS ORDERED: Iopamidol 755 MG/ML 50 ML Bottle IVPUSH ONE (08:18)
[2020-06-27] MEDS ORDERED: Sodium Chloride 0.9% 100 ML IV SCH (08:30)
[2020-06-27] MEDS: Lactated Ringers 1,000 ML IV SCH ×2 (08:55→20:18)
[2020-06-27] MEDS ORDERED: HYDROmorphone 0.5 MG/0.5 ML Syringe IVPUSH PRN (12:17)
[2020-06-27] MEDS ORDERED: Ondansetron 4 MG/2 ML SDV IV PRN (12:17)
[2020-06-27] MEDS ORDERED: oxyCODONE 5 MG Tab PO PRN (12:17)
[2020-06-27] MEDS ORDERED: Tamsulosin 0.4 MG Cap.ER PO ONE ×2 (12:20→15:15)
[2020-06-27] MEDS ORDERED: Calcium Carbonate 500 MG Tab.Chew PO PRN (12:21)
[2020-06-27] MEDS ORDERED: amLODIPine 5 MG Tab PO SCH (12:30)
[2020-06-27] MEDS ORDERED: fentaNYL 50 MCG/HR Transdermal Patch TRDERM SCH (12:30)
[2020-06-27] MEDS ORDERED: Metoprolol Tartrate 25 MG Tab PO SCH (12:30)
--- NOTE | 2020-06-27 12:30 | PCM.HP.2 ---
H&P History of Present Illness - General Date of Service: 06/27/20 Admit Problem/Dx: Admission Diagnosis/Problem Admission Diagnosis/Problem Renal colic on right side - History of Present Illness Initial Comments - Free Text/Narative: Patient presented to the emergency department via EMS with abdominal pain. At 0100 today he had abdominal pain, nausea, and vomiting. He denied any diarrhea. Patient states pain was initially diffuse in the mid and lower abdomen but now is stating it is in the right mid abdomen. Patient states the pain was severe but now it is much improved after being in the emergency department and getting treatment. CT of the abdomen did show right proximal ureteral stone measuring 4 x 3 x 6 mm causing mild right-sided hydronephrosis and proximal hydroureter with mild delay of the right nephrogram. There is also asymmetric right perinephric stranding. Patient denied any fever, chills, cough, congestion. Initial labs show white count of 5.98 with mildly elevated neutrophils at 5.52 with no bands or toxic granules. C-reactive protein was 0.6. Lactic acid 3.5, magnesium 1.6, proBNP 596, repeat lactic acid of 2.6, UA showed positive nitrites with 10-20 WBCs and 30-40 RBCs. Patient was given 1 L fluid bolus and started on LR at 150 mL/h. He was also given 750 mg IV of Levaquin. Abdominal Pain Score (Numeric/FACES): 9 - Related Data Allergies/Adverse Reactions: Allergies Allergy/AdvReac Type Severity Reaction Status Date / Time No Known Allergies Allergy Verified 06/27/20 10:42 Home Medications: Home Meds Acetaminophen [Tylenol] 650 mg PO Q4HR PRN 08/16/15 [History] Aspirin/Calcium Carbonate/Mag [Aspirin Buffered 325 mg Tab] 325 mg PO DAILY 11/29/16 [History] Metoprolol Tartrate 25 mg PO BID 11/29/16 [History] Vit A/Vit C/Vit E/Zinc/Copper [Preservision] 1 tab PO DAILY 01/19/17 [History] amLODIPine [Norvasc] 5 mg PO DAILY 01/19/17 [History] Calcium Carb/Vit D3/Minerals [Calcium 600+D Plus Minerals] 1 each PO BID 10/08/18 [History] Levothyroxine [Synthroid] 50 mcg PO ACBREAKFAST 10/08/18 [History] Rosuvastatin [Crestor] 5 mg PO BEDTIME 11/05/18 [History] Calcium Carbonate [Tums] 200 mg PO QID PRN 06/27/20 [History] Docusate Sodium 100 mg PO DAILY 06/27/20 [History] Ginkgo Biloba [place] Extract [Ginkgo Biloba] 1 tab PO DAILY 06/27/20 [History] Multivit-Min/FA/Lycopen/Lutein [Certavite Sr-Antioxidant Tab] 1 tab PO DAILY 06/27/20 [History] fentaNYL [Duragesic] 50 mcg TRDERM Q72H 06/27/20 [History] Past Medical History HEENT History: Reports: Hard of Hearing, Impaired Vision Other HEENT History: wears glasses, upper/lower dentures, bilateral hearing aids Cardiovascular History: Reports: CAD, High Cholesterol, Hypertension, NC Other 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 Genitourinary History: Reports: Renal Calculus Other Genitourinary History: prostate cancer Endocrine/Metabolic History: Reports: Hypothyroidism Oncologic (Cancer) History: Reports: Prostate Other Oncologic History: with bone mets - Infectious Disease History Infectious Disease History: Reports: Other (See Below) Other Infectious Disease History: patient does not remember. - Past Surgical History Cardiovascular Surgical History: Reports: Coronary Artery Bypass GI Surgical History: Reports: Appendectomy, Hernia, Inguinal Musculoskeletal Surgical History: Reports: Shoulder Surgery Social & Family History - Family History Family Medical History: Noncontributory - Tobacco Use Tobacco Use Status *Q: Former Tobacco User Used Tobacco, but Quit: Yes Month/Year Tobacco Last Used: 1958 Tobacco Use Comment: Pt states that he quit smoking "several" years ago but is unsure of whan - Caffeine Use Caffeine Use: Reports: None - Recreational Drug Use Recreational Drug Use: No - Living Situation & Occupation Living situation: Reports: , Alone Occupation: Retired H&P Review of Systems - Review of Systems: Review Of Systems: Comprehensive ROS is negative, except as noted in HPI. Exam - Exam Exam: See Below - Vital Signs Vital Signs: Last Vital Signs Temp 98.1 F 06/27/20 10:03 Pulse 90 06/27/20 10:03 Resp 16 06/27/20 10:03 BP 170/75 H 06/27/20 10:03 Pulse Ox 93 L 06/27/20 10:03 Weight: 72.439 kg - Exam Quality Assessment: No: Supplemental Oxygen General: Alert, Oriented, Other (No distress) HEENT: Conjunctiva Clear, EOMI, Mucosa Moist & [place]illard, Pupils Equal Neck: Supple, Trachea Midline, 2 Lungs: Clear to Auscultation, Normal Respiratory Effort Cardiovascular: Regular Rate, Regular Rhythm GI/Abdominal Exam: Normal Bowel Sounds, Soft, No Organomegaly, No Distention, No Abnormal Bruit, Tender (Mild right lower quadrant tenderness.) Back Exam: Normal Inspection Extremities: Normal Inspection, Normal Range of Motion, Non-Tender, No Pedal Edema, Normal Capillary Refill Peripheral Pulses: 2+: Posterior Tibial (L), Posterior Tibial (R), Dorsalis Pedis (L), Dorsalis Pedis (R) Skin: Warm, Dry, Intact Neuro Extensive - Mental Status: Alert, Oriented x3, Normal Mood/Affect, Normal Cognition, Memory Intact Psychiatric: Alert, Normal Affect, Normal Mood - Patient Data Lab Results Last 24 hrs: Laboratory Results - last 24 hr 06/27/20 06/27/20 06/27/20 Range/Units 05:30 05:43 05:43 WBC 5.98 (4.23-9.07) K/mm3 RBC 4.32 L (4.63-6.08) M/mm3 Hgb 13.3 L (13.7-17.5) gm/dl Hct 40.7 (40.1-51.0) % MCV 94.2 H (79.0-92.2) fl MCH 30.8 (25.7-32.2) pg MCHC 32.7 (32.2-35.5) g/dl RDW Std Deviation 42.0 (35.1-43.9) fL Plt Count 214 (163-337) K/mm3 MPV 10.2 (9.4-12.3) fl Neut % (Auto) 92.2 H (34.0-67.9) % Lymph % (Auto) 5.9 L (21.8-53.1) % [place] % (Auto) 0.7 L (5.3-12.2) % Eos % (Auto) 0.7 L (0.8-7.0) Baso % (Auto) 0.3 (0.1-1.2) % Neut # (Auto) 5.52 H (1.78-5.38) K/mm3 Lymph # (Auto) 0.35 L (1.32-3.57) K/mm3 [place] # (Auto) 0.04 L (0.30-0.82) K/mm3 Eos # (Auto) 0.04 (0.04-0.54) K/mm3 Baso # (Auto) 0.02 (0.01-0.08) K/mm3 Manual Slide Review Abnormal smear Sodium 137 (136-145) mEq/L Potassium 3.6 (3.5-5.1) mEq/L Chloride 101 (98-107) mEq/L Carbon Dioxide 25 (21-32) mEq/L Anion Gap 14.6 (5-15) BUN 16 (7-18) mg/dL Creatinine 1.1 (0.7-1.3) mg/dL Est Cr Clr Drug Dosing TNP Estimated GFR (MDRD) > 60 (>60) mL/min BUN/Creatinine Ratio 14.5 (14-18) Glucose 145 H (83-115) mg/dL Lactic Acid (0.4-2.0) mmol/L Calcium 8.9 (8.5-10.1) mg/dL Magnesium (1.8-2.4) mg/dl Total Bilirubin 0.7 (0.2-1.0) mg/dL AST 24 (15-37) U/L ALT 16 (16-63) U/L Alkaline Phosphatase 66 (46-116) U/L C-Reactive Protein 0.6 (<1.0) mg/dL NT-Pro-B Natriuret Pep (0-450) pg/mL Total Protein 7.2 (6.4-8.2) g/dl Albumin 3.5 (3.4-5.0) g/dl Globulin 3.7 gm/dL Albumin/Globulin Ratio 1.0 (1-2) Lipase 76 (73-393) U/L Urine Color (Yellow) Urine Appearance (Clear) Urine pH (5.0-8.0) Ur Specific [place] (1.005-1.030) Urine Protein (Negative) Urine Glucose (UA) (Negative) Urine Ketones (Negative) Urine Occult Blood (Negative) Urine Nitrite (Negative) Urine Bilirubin (Negative) Urine Urobilinogen (0.2-1.0) Ur Leukocyte Esterase (Negative) Urine RBC (0-5) /hpf Urine WBC (0-5) /hpf Ur Squamous Epith Cells (0-5) /hpf Urine Bacteria (FEW) /hpf Urine Mucus (FEW) /hpf SARS-CoV-2 RNA (MAL) Negative (NEGATIVE) 06/27/20 06/27/20 06/27/20 Range/Units 05:43 05:43 05:43 WBC (4.23-9.07) K/mm3 RBC (4.63-6.08) M/mm3 Hgb (13.7-17.5) gm/dl Hct (40.1-51.0) % MCV (79.0-92.2) fl MCH (25.7-32.2) pg MCHC (32.2-35.5) g/dl RDW Std Deviation (35.1-43.9) fL Plt Count (163-337) K/mm3 MPV (9.4-12.3) fl Neut % (Auto) (34.0-67.9) % Lymph % (Auto) (21.8-53.1) % [place] % (Auto) (5.3-12.2) % Eos % (Auto) (0.8-7.0) Baso % (Auto) (0.1-1.2) % Neut # (Auto) (1.78-5.38) K/mm3 Lymph # (Auto) (1.32-3.57) K/mm3 [place] # (Auto) (0.30-0.82) K/mm3 Eos # (Auto) (0.04-0.54) K/mm3 Baso # (Auto) (0.01-0.08) K/mm3 Manual Slide Review Sodium (136-145) mEq/L Potassium (3.5-5.1) mEq/L Chloride (98-107) mEq/L Carbon Dioxide (21-32) mEq/L Anion Gap (5-15) BUN (7-18) mg/dL Creatinine (0.7-1.3) mg/dL Est Cr Clr Drug Dosing Estimated GFR (MDRD) (>60) mL/min BUN/Creatinine Ratio (14-18) Glucose (83-115) mg/dL Lactic Acid 3.5 H* (0.4-2.0) mmol/L Calcium (8.5-10.1) mg/dL Magnesium 1.6 L (1.8-2.4) mg/dl Total Bilirubin (0.2-1.0) mg/dL AST (15-37) U/L ALT (16-63) U/L Alkaline Phosphatase (46-116) U/L C-Reactive Protein (<1.0) mg/dL NT-Pro-B Natriuret Pep 596 H (0-450) pg/mL Total Protein (6.4-8.2) g/dl Albumin (3.4-5.0) g/dl Globulin gm/dL Albumin/Globulin Ratio (1-2) Lipase (73-393) U/L Urine Color (Yellow) Urine Appearance (Clear) Urine pH (5.0-8.0) Ur Specific [place] (1.005-1.030) Urine Protein (Negative) Urine Glucose (UA) (Negative) Urine Ketones (Negative) Urine Occult Blood (Negative) Urine Nitrite (Negative) Urine Bilirubin (Negative) Urine Urobilinogen (0.2-1.0) Ur Leukocyte Esterase (Negative) Urine RBC (0-5) /hpf Urine WBC (0-5) /hpf Ur Squamous Epith Cells (0-5) /hpf Urine Bacteria (FEW) /hpf Urine Mucus (FEW) /hpf SARS-CoV-2 RNA (MAL) (NEGATIVE) 06/27/20 06/27/20 Range/Units 07:25 08:54 WBC (4.23-9.07) K/mm3 RBC (4.63-6.08) M/mm3 Hgb (13.7-17.5) gm/dl Hct (40.1-51.0) % MCV (79.0-92.2) fl MCH (25.7-32.2) pg MCHC (32.2-35.5) g/dl RDW Std Deviation (35.1-43.9) fL Plt Count (163-337) K/mm3 MPV (9.4-12.3) fl Neut % (Auto) (34.0-67.9) % Lymph % (Auto) (21.8-53.1) % [place] % (Auto) (5.3-12.2) % Eos % (Auto) (0.8-7.0) Baso % (Auto) (0.1-1.2) % Neut # (Auto) (1.78-5.38) K/mm3 Lymph # (Auto) (1.32-3.57) K/mm3 [place] # (Auto) (0.30-0.82) K/mm3 Eos # (Auto) (0.04-0.54) K/mm3 Baso # (Auto) (0.01-0.08) K/mm3 Manual Slide Review Sodium (136-145) mEq/L Potassium (3.5-5.1) mEq/L Chloride (98-107) mEq/L Carbon Dioxide (21-32) mEq/L Anion Gap (5-15) BUN (7-18) mg/dL Creatinine (0.7-1.3) mg/dL Est Cr Clr Drug Dosing Estimated GFR (MDRD) (>60) mL/min BUN/Creatinine Ratio (14-18) Glucose (83-115) mg/dL Lactic Acid 2.6 H* (0.4-2.0) mmol/L Calcium (8.5-10.1) mg/dL Magnesium (1.8-2.4) mg/dl Total Bilirubin (0.2-1.0) mg/dL AST (15-37) U/L ALT (16-63) U/L Alkaline Phosphatase (46-116) U/L C-Reactive Protein (<1.0) mg/dL NT-Pro-B Natriuret Pep (0-450) pg/mL Total Protein (6.4-8.2) g/dl Albumin (3.4-5.0) g/dl Globulin gm/dL Albumin/Globulin Ratio (1-2) Lipase (73-393) U/L Urine Color Light yellow (Yellow) Urine Appearance Slt cloudy H (Clear) Urine pH 7.5 (5.0-8.0) Ur Specific [place] 1.025 (1.005-1.030) Urine Protein Negative (Negative) Urine Glucose (UA) Negative (Negative) Urine Ketones Negative (Negative) Urine Occult Blood 3+ H (Negative) Urine Nitrite Positive H (Negative) Urine Bilirubin Negative (Negative) Urine Urobilinogen 0.2 (0.2-1.0) Ur Leukocyte Esterase 2+ H (Negative) Urine RBC 30-40 H (0-5) /hpf Urine WBC 10-20 H (0-5) /hpf Ur Squamous Epith Cells 0-5 (0-5) /hpf Urine Bacteria Moderate H (FEW) /hpf Urine Mucus Rare (FEW) /hpf SARS-CoV-2 RNA (MAL) (NEGATIVE) Result Diagrams: 06/27/20 05:43 06/27/20 05:43 Imaging Impressions Last 24 hrs: CT of the abdomen did show right proximal ureteral stone measuring 4 x 3 x 6 mm causing mild right-sided hydronephrosis and proximal hydroureter with mild delay of the right nephrogram. There is also asymmetric right perinephric stranding. #1 Interpretation EKG Date: 06/27/20 Rhythm: NSR Rate (Beats/Min): 76 [place]: Normal P-Wave: Present (Left atrial enlargement) QRS: Other (RSR prime in V1 and 2) ST-T: Normal QT: Prolonged (Borderline at 486) OK/PQ Interval: First-degree AV block Sepsis Event Note - Evaluation Sepsis Screening Result: No Definite Risk - Focused Exam Vital Signs: Vital Signs Temp Temp Pulse Pulse Resp BP BP 06/27/20 10:03 98.1 F 90 16 170/75 H 06/27/20 05:04 98.5 F 64 28 H 185/91 H Pulse Ox 06/27/20 10:03 93 L 06/27/20 05:04 94 L - Problem List (1) Acute abdominal pain SNOMED Code(s): 142610633 ICD Code: R10.9 - UNSPECIFIED ABDOMINAL PAIN Status: Acute Current Visit: Yes (2) BPH with urinary obstruction SNOMED Code(s): 629047455 ICD Code: N40.1 - BENIGN PROSTATIC HYPERPLASIA WITH LOWER URINARY TRACT SYMP; N13.8 - OTHER OBSTRUCTIVE AND REFLUX UROPATHY Status: Acute Current Visit: Yes (3) Kidney stone on right side SNOMED Code(s): 95600993 ICD Code: N20.0 - CALCULUS OF KIDNEY Status: Acute Current Visit: Yes (4) Lactic acidosis SNOMED Code(s): 69430356 ICD Code: E87.2 - ACIDOSIS Status: Acute Current Visit: Yes (5) Urinary tract infection SNOMED Code(s): 91194739 ICD Code: N39.0 - URINARY TRACT INFECTION, SITE NOT SPECIFIED Status: Acute Current Visit: Yes Qualifiers: Urinary tract infection type: site unspecified Hematuria presence: without hematuria Qualified Code(s): N39.0 - Urinary tract infection, site not specified Problem List Initiated/Reviewed/Updated: Yes Orders Last 24hrs: Active Orders 24 hr Category Date Time Status Admission Status [Patient Status] [ADT] Routine ADT 06/27/20 09:31 Active Bladder Scan [RC] ASDIRECTED Care 06/27/20 07:56 Active Oxygen Therapy [RC] PRN Care 06/27/20 12:17 Ordered Up With Assistance [RC] ASDIRECTED Care 06/27/20 12:17 Ordered VTE/DVT Education [RC] PER UNIT ROUTINE Care 06/27/20 12:17 Ordered Vital Signs [RC] Q4H Care 06/27/20 12:17 Ordered Heart Healthy Diet [DIET] Diet 06/27/20 Dinner Ordered Abdomen 1V Flat [CR] Stat Exams 06/27/20 07:21 Taken Abdomen Pelvis w Cont [CT] Stat Exams 06/27/20 07:40 Taken Chest 1V Frontal [CR] Stat Exams 06/27/20 07:21 Taken CULTURE BLOOD [BC] Stat Lab 06/27/20 05:10 Received CULTURE BLOOD [BC] Stat Lab 06/27/20 05:10 Received CULTURE URINE [RM] Stat Lab 06/27/20 07:52 Ordered LACTIC ACID [CHEM] Stat Lab 06/27/20 12:00 Ordered METH-RESIST S.AUR,MRSA BY PCR [MOLEC] Routine Lab 06/27/20 11:51 Received Aspirin [Halfprin] Med 06/28/20 09:00 Ordered 81 mg PO DAILY Calcium Carbonate [Tums] Med 06/27/20 12:21 Ordered 200 mg PO QID PRN Docusate Sodium [Colace] Med 06/28/20 09:00 Ordered 100 mg PO DAILY Docusate Sodium/Sennosides [Senna Plus] Med 06/27/20 12:17 Ordered 1 tab PO BID PRN Enoxaparin [Lovenox] Med 06/28/20 09:00 Ordered 40 mg SUBCUT DAILY HYDROmorphone [Dilaudid] Med 06/27/20 12:17 Ordered 0.5 mg IVPUSH Q2H PRN Lactated Ringers [Ringers, Lactated] 1,000 ml Med 06/27/20 07:30 Active IV ASDIRECTED Lactated Ringers [Ringers, Lactated] 1,000 ml Med 06/27/20 09:00 Active IV ASDIRECTED Levothyroxine [Synthroid] Med 06/28/20 06:00 Ordered 50 mcg PO ACBREAKFAST Metoprolol Tartrate [Lopressor] Med 06/27/20 12:30 Ordered 25 mg PO BID Ondansetron [Zofran] Med 06/27/20 12:17 Ordered 4 mg IV Q4H PRN Rosuvastatin Med 06/27/20 21:00 Ordered 5 mg PO BEDTIME Sodium Chloride 0.9% [Normal Saline] 1,000 ml Med 06/27/20 05:15 Active IV ASDIRECTED amLODIPine Med 06/27/20 12:30 Ordered 5 mg PO DAILY fentaNYL [Duragesic] Med 06/27/20 12:30 Ordered 50 mcg TRDERM Q72H oxyCODONE Med 06/27/20 12:17 Ordered 5 mg PO Q4H PRN Blood Culture x2 Reflex Set [OM.PC] Stat Oth 06/27/20 05:10 Ordered Resuscitation Status Routine Resus Stat 06/27/20 12:17 Ordered Medication Orders Amlodipine Besylate (Norvasc) 5 mg PO DAILY KEVIN Aspirin (Halfprin) 81 mg PO DAILY KEVIN Calcium Carbonate/Glycine (Tums) 500 mg PO QID PRN PRN Reason: upset stomach Docusate Sodium (Colace) 100 mg PO DAILY KEVIN Enoxaparin Sodium (Lovenox) 40 mg SUBCUT DAILY [facility] Fentanyl (Duragesic) 50 mcg TRDERM Q72H KEVIN Hydromorphone HCl (Dilaudid) 0.5 mg IVPUSH Q2H PRN PRN Reason: Pain (severe 7-10) Sodium Chloride (Normal Saline) 1,000 mls @ 1,000 mls/hr IV ASDIRECTED KEVIN Last Admin: 06/27/20 05:26 Dose: 1,000 mls/hr Documented by: HERMMIC Lactated Ringer's (Ringers, Lactated) 1,000 mls @ 150 mls/hr IV ASDIRECTED KEVIN Last Admin: 06/27/20 07:38 Dose: 150 mls/hr Documented by: CHEVKEL Lactated Ringer's (Ringers, Lactated) 1,000 mls @ 150 mls/hr IV ASDIRECTED [facility] Last Admin: 06/27/20 08:55 Dose: 150 mls/hr Documented by: TONY Levothyroxine Sodium (Synthroid) 50 mcg PO ACBREAKFAST [facility] Metoprolol Tartrate (Lopressor) 25 mg PO BID [facility] Ondansetron HCl (Zofran) 4 mg IV Q4H PRN PRN Reason: Nausea/Vomiting Oxycodone HCl (Oxycodone) 5 mg PO Q4H PRN PRN Reason: Pain (moderate 4-6) Rosuvastatin Calcium (Crestor) 5 mg PO BEDTIME [facility] Senna/Docusate Sodium (Senna Plus) 1 tab PO BID PRN PRN Reason: Constipation Assessment/Plan Comment:: Assessment * 84-year-old male with acute onset nausea, vomiting, and diffuse abdominal pain at [address] results consistent with right kidney stone measuring 4 x 3 x 6 mm. * Prostate cancer post seed implant * Samuel is a history of kidney stones. Approximately 6 years he had to get a stent after his ureter ruptured on the right side. Patient has a recurrence of his stone. This may be at scarring from the previous stone. It is small enough that he can likely pass spontaneously. Pain has been well controlled emergency department with Dilaudid. * UTI * Positive nitrites and urine WBCs. * Received Levaquin in the emergency department. * Urine and blood cultured. * This does not look like an infected stone. He has a normal white count with only a slight increase in his neutrophils likely secondary to stress, C-reactive protein, and is afebrile. * Lactic acidosis * Significant elevation in his lactic acid at 3.5 initially with a repeat of 2.6 after fluids. Unknown cause for this lactic acidosis at this time. CT did not appreciate any acute intra-abdominal process that would explain his lactic acidosis. * History of coronary artery disease, hypertension, NC, hyperlipidemia with a three-vessel CABG * Initial blood pressure was 185/91 likely secondary to pain. * BNP mildly elevated at 596 and likely not significant for this age * Hypomagnesemia * Magnesium 1.6 Plan * Admit to medical floor * Continue Levaquin 750 mg daily and await culture results. * Continue IV fluids at 150 mL/h. Give 1 more bolus of 500 mL. * Replace magnesium. * Follow lactic acid. * Follow vitals every 4 hours. * Currently on fentanyl for pain. * Dilaudid 0.5 mg every 2 hours as needed pain. * Strain urine * Continue home medication * Check CBC, CMP, mag, phosphorus, and TSH in the morning * VTE prophylaxis with Lovenox * CODE STATUS: DNR/DNI * Length of stay likely 2 to 3 days. - Mortality Measure Prognosis:: Good
[2020-06-27] MEDS ORDERED: Lactated Ringers 500 ML IV ONE (14:17)
[2020-06-27] MEDS: Metoprolol Tartrate 25 MG Tab PO SCH ×2 (15:16→20:22)
[2020-06-27] MEDS: amLODIPine 5 MG Tab PO SCH (15:16)
[2020-06-27] MEDS: fentaNYL 50 MCG/HR Transdermal Patch TRDERM SCH (15:17)
[2020-06-27] MEDS ORDERED: Lactated Ringers 1,000 ML ONE (19:50)
[2020-06-27] MEDS: Rosuvastatin 10 MG Tab PO SCH (20:22)
[2020-06-28] MEDS ORDERED: Piperacillin/Tazobactam 4.5 GM in Sodium Chloride 0.9% 100 ML IV ONE (01:34)
[2020-06-28] MEDS ORDERED: Lactated Ringers 1,000 ML IV SCH (04:30)
[2020-06-28] MEDS: Levothyroxine 50 MCG Tab PO SCH ×2 (04:38→06:08)
[2020-06-28] MEDS: Levofloxacin 750 MG Tab PO SCH (10:02)
[2020-06-28] MEDS: Aspirin 81 MG Tab.EC PO SCH (10:02)
[2020-06-28] MEDS: Tamsulosin 0.4 MG Cap.ER PO SCH (10:02)
[2020-06-28] MEDS: Docusate Sodium 100 MG Cap PO SCH (10:02)
[2020-06-28] MEDS: Enoxaparin 40 MG/0.4 ML Syringe SUBCUT SCH (10:02)
[2020-06-28] MEDS: Metoprolol Tartrate 25 MG Tab PO SCH ×2 (10:04→21:16)
[2020-06-28] MEDS: amLODIPine 5 MG Tab PO SCH (10:06)
[2020-06-28] MEDS: Piperacillin/Tazobactam 4.5 GM in Sodium Chloride 0.9% 100 ML IV SCH ×2 (10:19→18:14)
--- NOTE | 2020-06-28 19:10 | PCM.PN ---
- General Info Date of Service: 06/28/20 Admission Dx/Problem (Free Text): Admission Diagnosis/Problem Admission Diagnosis/Problem Renal colic on right side Subjective Update: Patient states that the pain has mostly resolved. Blood cultures did become positive for gram-negative rods last night. At that point I put him on Zosyn in addition to Levaquin. He has been afebrile and generally feeling well. Appetite is good. Functional Status: Reports: Pain Controlled - Review of Systems General: Reports: No Symptoms HEENT: Reports: No Symptoms Pulmonary: Reports: No Symptoms Cardiovascular: Reports: No Symptoms Gastrointestinal: Reports: No Symptoms Musculoskeletal: Reports: No Symptoms - Patient Data Vitals - Most Recent: Last Vital Signs Temp 97.8 F 06/28/20 13:30 Pulse 58 L 06/28/20 13:30 Resp 20 06/28/20 13:30 BP 125/62 06/28/20 13:30 Pulse Ox 97 06/28/20 13:31 Weight - Most Recent: 73.754 kg I&O - Last 24 Hours: Intake & Output 06/28/20 06/28/20 06/28/20 06:59 14:59 22:59 Intake Total 180 1800 Output Total 850 Balance 180 950 Lab Results Last 24 Hours: Laboratory Results - last 24 hr 06/27/20 06/28/20 06/28/20 Range/Units 05:43 04:50 04:50 WBC 7.17 (4.23-9.07) K/mm3 RBC 3.61 L (4.63-6.08) M/mm3 Hgb 11.1 L D (13.7-17.5) gm/dl Hct 34.3 L (40.1-51.0) % MCV 95.0 H (79.0-92.2) fl MCH 30.7 (25.7-32.2) pg MCHC 32.4 (32.2-35.5) g/dl RDW Std Deviation 43.3 (35.1-43.9) fL Plt Count 152 L (163-337) K/mm3 MPV 10.1 (9.4-12.3) fl Neut % (Auto) 78.6 H (34.0-67.9) % Lymph % (Auto) 9.8 L (21.8-53.1) % [place] % (Auto) 10.6 (5.3-12.2) % Eos % (Auto) 0.6 L (0.8-7.0) Baso % (Auto) 0.3 (0.1-1.2) % Neut # (Auto) 5.64 H (1.78-5.38) K/mm3 Lymph # (Auto) 0.70 L (1.32-3.57) K/mm3 [place] # (Auto) 0.76 (0.30-0.82) K/mm3 Eos # (Auto) 0.04 (0.04-0.54) K/mm3 Baso # (Auto) 0.02 (0.01-0.08) K/mm3 Manual Slide Review Abnormal smear Sodium 135 L (136-145) mEq/L Potassium 3.7 (3.5-5.1) mEq/L Chloride 102 (98-107) mEq/L Carbon Dioxide 25 (21-32) mEq/L Anion Gap 11.7 (5-15) BUN 14 (7-18) mg/dL Creatinine 1.1 (0.7-1.3) mg/dL Est Cr Clr Drug Dosing 50.29 mL/min Estimated GFR (MDRD) > 60 (>60) mL/min BUN/Creatinine Ratio 12.7 L (14-18) Glucose 101 (83-115) mg/dL Lactic Acid (0.4-2.0) mmol/L Calcium 8.7 (8.5-10.1) mg/dL Phosphorus 2.8 (2.6-4.7) mg/dL Magnesium 1.6 L (1.8-2.4) mg/dl Total Bilirubin 0.8 (0.2-1.0) mg/dL AST 21 (15-37) U/L ALT 15 L (16-63) U/L Alkaline Phosphatase 50 (46-116) U/L C-Reactive Protein 11.8 H* (<1.0) mg/dL Total Protein 5.4 L (6.4-8.2) g/dl Albumin 2.7 L (3.4-5.0) g/dl Globulin 2.7 gm/dL Albumin/Globulin Ratio 1.0 (1-2) Procalcitonin <0.05 (<0.10) ng/mL 11/01/20 Range/Units 04:50 WBC (4.23-9.07) K/mm3 RBC (4.63-6.08) M/mm3 Hgb (13.7-17.5) gm/dl Hct (40.1-51.0) % MCV (79.0-92.2) fl MCH (25.7-32.2) pg MCHC (32.2-35.5) g/dl RDW Std Deviation (35.1-43.9) fL Plt Count (163-337) K/mm3 MPV (9.4-12.3) fl Neut % (Auto) (34.0-67.9) % Lymph % (Auto) (21.8-53.1) % [place] % (Auto) (5.3-12.2) % Eos % (Auto) (0.8-7.0) Baso % (Auto) (0.1-1.2) % Neut # (Auto) (1.78-5.38) K/mm3 Lymph # (Auto) (1.32-3.57) K/mm3 [place] # (Auto) (0.30-0.82) K/mm3 Eos # (Auto) (0.04-0.54) K/mm3 Baso # (Auto) (0.01-0.08) K/mm3 Manual Slide Review Sodium (136-145) mEq/L Potassium (3.5-5.1) mEq/L Chloride (98-107) mEq/L Carbon Dioxide (21-32) mEq/L Anion Gap (5-15) BUN (7-18) mg/dL Creatinine (0.7-1.3) mg/dL Est Cr Clr Drug Dosing mL/min Estimated GFR (MDRD) (>60) mL/min BUN/Creatinine Ratio (14-18) Glucose (83-115) mg/dL Lactic Acid 1.1 (0.4-2.0) mmol/L Calcium (8.5-10.1) mg/dL Phosphorus (2.6-4.7) mg/dL Magnesium (1.8-2.4) mg/dl Total Bilirubin (0.2-1.0) mg/dL AST (15-37) U/L ALT (16-63) U/L Alkaline Phosphatase (46-116) U/L C-Reactive Protein (<1.0) mg/dL Total Protein (6.4-8.2) g/dl Albumin (3.4-5.0) g/dl Globulin gm/dL Albumin/Globulin Ratio (1-2) Procalcitonin (<0.10) ng/mL Drew Results Last 24 Hours: Microbiology 06/27/20 05:10 Aerobic Blood Culture - Preliminary Blood - Venous - Lab Draw Gram Negative Rods Anaerobic Blood Culture - Preliminary Gram Negative Rods 06/27/20 05:10 Aerobic Blood Culture - Preliminary Blood - Venous NO GROWTH AFTER 1 DAY Anaerobic Blood Culture - Preliminary Gram Negative Rods 06/27/20 07:52 Urine Culture - Preliminary Urine, Bladder Gram Negative Rods Med Orders - Current: Current Medications Amlodipine Besylate (Norvasc) 5 mg PO DAILY [facility] Last Admin: 06/28/20 10:06 Dose: 5 mg Documented by: Aspirin (Halfprin) 81 mg PO DAILY [facility] Last Admin: 06/28/20 10:02 Dose: 81 mg Documented by: Calcium Carbonate/Glycine (Tums) 500 mg PO QID PRN PRN Reason: upset stomach Docusate Sodium (Colace) 100 mg PO DAILY [facility] Last Admin: 06/28/20 10:02 Dose: 100 mg Documented by: Enoxaparin Sodium (Lovenox) 40 mg SUBCUT DAILY [facility] Last Admin: 06/28/20 10:02 Dose: 40 mg Documented by: Fentanyl (Duragesic) 50 mcg TRDERM Q72H [facility] Last Admin: 06/27/20 15:17 Dose: 50 mcg Documented by: Hydromorphone HCl (Dilaudid) 0.5 mg IVPUSH Q2H PRN PRN Reason: Pain (severe 7-10) Piperacillin Sod/Tazobactam (Sod 4.5 gm/ Sodium Chloride) 100 mls @ 25 mls/hr IV Q8H [facility] Last Admin: 06/28/20 18:14 Dose: 25 mls/hr Documented by: Levofloxacin (Levaquin) 750 mg PO DAILY [facility] Last Admin: 06/28/20 10:02 Dose: 750 mg Documented by: Levothyroxine Sodium (Synthroid) 50 mcg PO ACBREAKFAST [facility] Last Admin: 06/28/20 06:08 Dose: Not Given Documented by: Metoprolol Tartrate (Lopressor) 25 mg PO BID [facility] Last Admin: 06/28/20 10:04 Dose: 25 mg Documented by: Miscellaneous Information (Remove Patch) 1 ea TRDERM Q72H [facility] Ondansetron HCl (Zofran) 4 mg IV Q4H PRN PRN Reason: Nausea/Vomiting Oxycodone HCl (Oxycodone) 5 mg PO Q4H PRN PRN Reason: Pain (moderate 4-6) Rosuvastatin Calcium (Crestor) 5 mg PO BEDTIME [facility] Last Admin: 06/27/20 20:22 Dose: 5 mg Documented by: Senna/Docusate Sodium (Senna Plus) 1 tab PO BID PRN PRN Reason: Constipation Last Admin: 06/28/20 14:53 Dose: 1 tab Documented by: Tamsulosin HCl (Flomax) 0.4 mg PO PCBREAKFAST [facility] Last Admin: 06/28/20 10:02 Dose: 0.4 mg Documented by: Discontinued Medications Amlodipine Besylate (Norvasc) 5 mg PO DAILY [facility] Last Admin: 06/27/20 15:30 Dose: Not Given Documented by: Fentanyl (Duragesic) 50 mcg TRDERM Q72H [facility] Last Admin: 06/27/20 15:29 Dose: Not Given Documented by: Hydromorphone HCl (Dilaudid) 0.5 mg IVPUSH ONETIME ONE Stop: 06/27/20 05:12 Last Admin: 06/27/20 05:26 Dose: 0.5 mg Documented by: Hydromorphone HCl (Dilaudid) 0.5 mg IVPUSH ONETIME ONE Stop: 06/27/20 05:55 Last Admin: 06/27/20 06:03 Dose: 0.5 mg Documented by: Hydromorphone HCl (Dilaudid) 0.5 mg IVPUSH ONETIME ONE Stop: 06/27/20 07:39 Last Admin: 06/27/20 07:43 Dose: 0.5 mg Documented by: Sodium Chloride (Normal Saline) 1,000 mls @ 1,000 mls/hr IV ASDIRECTED [facility] Last Admin: 06/27/20 05:26 Dose: 1,000 mls/hr Documented by: Lactated Ringer's (Ringers, Lactated) 1,000 mls @ 150 mls/hr IV ASDIRECTED [facility] Last Admin: 06/27/20 07:38 Dose: 150 mls/hr Documented by: Levofloxacin/Dextrose 750 mg/ (Premix) 150 mls @ 100 mls/hr IV ONETIME ONE Stop: 06/27/20 09:24 Last Admin: 06/27/20 08:05 Dose: 100 mls/hr Documented by: Sodium Chloride (Normal Saline) 100 mls @ 60 mls/hr IV ASDIRECTED [facility] Last Admin: 06/27/20 08:43 Dose: 60 mls/hr Documented by: Lactated Ringer's (Ringers, Lactated) 1,000 mls @ 150 mls/hr IV ASDIRECTED [facility] Last Admin: 06/27/20 20:18 Dose: 150 mls/hr Documented by: Lactated Ringer's (Ringers, Lactated) 500 mls @ 500 mls/hr IV .BOLUS ONE Stop: 06/27/20 15:16 Last Admin: 06/27/20 14:51 Dose: 500 mls/hr Documented by: Lactated Ringer's (Ringers, Lactated) Confirm Administered Dose 1,000 mls @ as directed .ROUTE .STK-MED ONE Stop: 06/27/20 19:51 Last Admin: 06/27/20 20:23 Dose: Not Given Documented by: Piperacillin Sod/Tazobactam (Sod 4.5 gm/ Sodium Chloride) 100 mls @ 200 mls/hr IV ONETIME ONE Stop: 06/28/20 02:03 Last Admin: 06/28/20 01:57 [facility] Dose: 200 mls/hr Documented by: Lactated Ringer's (Ringers, Lactated) 1,000 mls @ 150 mls/hr IV ASDIRECTED [facility] Last Admin: 06/28/20 04:37 Dose: 150 mls/hr Documented by: Iopamidol (Isovue-370 (76%)) 100 ml IVPUSH ONETIME ONE Stop: 06/27/20 08:19 Last Admin: 06/27/20 08:43 Dose: 100 ml Documented by: Iopamidol (Isovue-370 (76%)) 125 ml IVPUSH ONETIME ONE Stop: 06/27/20 08:19 Last Admin: 06/27/20 08:55 Dose: Not Given Documented by: Metoprolol Tartrate (Lopressor) 25 mg PO BID [facility] Last Admin: 06/27/20 15:29 Dose: Not Given Documented by: Ondansetron HCl (Zofran) 4 mg IVPUSH ONETIME ONE Stop: 06/27/20 05:12 Last Admin: 06/27/20 05:26 Dose: 4 mg Documented by: Sodium Chloride (Saline Flush) 10 ml FLUSH ONETIME ONE Stop: 06/27/20 08:19 Last Admin: 06/27/20 08:43 Dose: 10 ml Documented by: Tamsulosin HCl (Flomax) 0.4 mg PO ONETIME ONE Stop: 06/27/20 12:21 Last Admin: 06/27/20 15:07 Dose: Not Given Documented by: Tamsulosin HCl (Flomax) 0.4 mg PO ONETIME ONE Stop: 06/27/20 15:16 Last Admin: 06/27/20 15:15 Dose: 0.4 mg Documented by: - Exam General: Alert, Oriented HEENT: Pupils Equal, Mucous Membr. Moist/[place] Neck: Supple Lungs: Clear to Auscultation, Normal Respiratory Effort Cardiovascular: Regular Rate, Regular Rhythm GI/Abdominal Exam: Normal Bowel Sounds, Soft, Non-Tender, No Organomegaly, No Distention, No Abnormal Bruit Extremities: Normal Inspection, Normal Range of Motion, Non-Tender, No Pedal Edema, Normal Capillary Refill Peripheral Pulses: 2+: Posterior Tibial (L), Posterior Tibial (R), Dorsalis Pedis (L), Dorsalis Pedis (R) Skin: Warm, Dry, Intact Psy/Mental Status: Alert, Normal Affect, Normal Mood Sepsis Event Note - Evaluation Sepsis Screening Result: No Definite Risk - Focused Exam Vital Signs: Vital Signs Temp Temp Pulse Pulse Resp BP BP 06/28/20 13:31 06/28/20 13:30 97.8 F 58 L 20 125/62 06/28/20 10:06 137/59 L 06/28/20 10:04 78 137/59 L 06/28/20 08:12 98.1 F 67 20 135/95 H Pulse Ox 06/28/20 13:31 97 06/28/20 13:30 92 L 06/28/20 10:06 06/28/20 10:04 06/28/20 08:12 94 L - Problem List & Annotations (1) Acute abdominal pain SNOMED Code(s): 631277371 Code(s): R10.9 - UNSPECIFIED ABDOMINAL PAIN Status: Acute Current Visit: Yes (2) BPH with urinary obstruction SNOMED Code(s): 602414330 Code(s): N40.1 - BENIGN PROSTATIC HYPERPLASIA WITH LOWER URINARY TRACT SYMP; N13.8 - OTHER OBSTRUCTIVE AND REFLUX UROPATHY Status: Acute Current Visit: Yes (3) Kidney stone on right side SNOMED Code(s): 86006158 Code(s): N20.0 - CALCULUS OF KIDNEY Status: Acute Current Visit: Yes (4) Lactic acidosis SNOMED Code(s): 97256540 Code(s): E87.2 - ACIDOSIS Status: Acute Current Visit: Yes (5) Urinary tract infection SNOMED Code(s): 93339735 Code(s): N39.0 - URINARY TRACT INFECTION, SITE NOT SPECIFIED Status: Acute Current Visit: Yes Qualifiers: Urinary tract infection type: site unspecified Hematuria presence: without hematuria Qualified Code(s): N39.0 - Urinary tract infection, site not specified - Problem List Review Problem List Initiated/Reviewed/Updated: Yes - My Orders Last 24 Hours: My Active Orders 06/27/20 21:00 Rosuvastatin [Crestor] 5 mg PO BEDTIME 06/28/20 06:00 Levothyroxine [Synthroid] 50 mcg PO ACBREAKFAST 06/28/20 09:00 Aspirin [Halfprin] 81 mg PO DAILY Docusate Sodium [Colace] 100 mg PO DAILY Enoxaparin [Lovenox] 40 mg SUBCUT DAILY levoFLOXacin [Levaquin] 750 mg PO DAILY 06/28/20 10:00 Piperacillin/Tazobactam [Piperacil-Tazobact] 4.5 gm Sodium Chloride 0.9% [Normal Saline] 100 ml IV Q8H Tamsulosin [Flomax] 0.4 mg PO PCBREAKFAST 06/30/20 15:00 Remove Patch 1 ea TRDERM Q72H - Plan Plan:: Assessment 06/27/2020 * 84-year-old male with acute onset nausea, vomiting, and diffuse abdominal pain at [address] results consistent with right kidney stone measuring 4 x 3 x 6 mm. * Prostate cancer post seed implant * Samuel is a history of kidney stones. Approximately 6 years he had to get a stent after his ureter ruptured on the right side. Patient has a recurrence of his stone. This may be at scarring from the previous stone. It is small enough that he can likely pass spontaneously. Pain has been well controlled emergency department with Dilaudid. * UTI * Positive nitrites and urine WBCs. * Received Levaquin in the emergency department. * Urine and blood cultured. * This does not look like an infected stone. He has a normal white count with only a slight increase in his neutrophils likely secondary to stress, C-reactive protein, and is afebrile. * Lactic acidosis * Significant elevation in his lactic acid at 3.5 initially with a repeat of 2.6 after fluids. Unknown cause for this lactic acidosis at this time. CT did not appreciate any acute intra-abdominal process that would explain his lactic acidosis. * History of coronary artery disease, hypertension, AL, hyperlipidemia with a three-vessel CABG * Initial blood pressure was 185/91 likely secondary to pain. * BNP mildly elevated at 596 and likely not significant for this age * Hypomagnesemia * Magnesium 1.6 06/28/2020 * Bacteremia due to gram-negative rods * UTI -gram-negative rods * Symptomatic right proximal kidney stone measuring 4 x 3 x 6 mm * Right hydronephrosis * Hypomagnesemia * History of coronary artery disease, hypertension, AL, hyperlipidemia with a three-vessel CABG Patient's lactic acid came down to normal overnight. He is also much improved symptomatically and is afebrile. His white count continues to be normal and his absolute neutrophils are elevated at 5.64. Renal function continues to be normal. CRP did increase to 11.8. Procalcitonin from yesterday was negative at less than 0.05. Magnesium still low at 1.6. Plan * Continue Levaquin 750 mg daily and await culture results. * Stop IV fluids * Replace magnesium. * Started Zosyn * Awaiting final urine and blood cultures * Follow vitals every 4 hours. * Currently on fentanyl for pain. * Dilaudid 0.5 mg every 2 hours as needed pain. * Strain urine * Echocardiogram in the morning * Check CBC, CMP, mag, phosphorus, CRP * VTE prophylaxis with Lovenox * CODE STATUS: DNR/DNI * Length of stay likely 2 to 3 days.
[2020-06-28] MEDS ORDERED: Magnesium Sulfate/Water 2 GM in Premix Bag 1 BAG IV ONE (20:33)
[2020-06-28] MEDS: Rosuvastatin 10 MG Tab PO SCH (21:14)
[2020-06-29] MEDS: Piperacillin/Tazobactam 4.5 GM in Sodium Chloride 0.9% 100 ML IV SCH ×3 (01:05→18:17)
[2020-06-29] MEDS: Levothyroxine 50 MCG Tab PO SCH (06:14)
[2020-06-29] MEDS ORDERED: Magnesium Hydroxide 400 MG/5 ML Susp 30 ML Cup PO ONE (06:30)
[2020-06-29] MEDS: Metoprolol Tartrate 25 MG Tab PO SCH ×3 (09:19→23:06)
[2020-06-29] MEDS: Docusate Sodium 100 MG Cap PO SCH (09:22)
[2020-06-29] MEDS: amLODIPine 5 MG Tab PO SCH (09:22)
[2020-06-29] MEDS: Levofloxacin 750 MG Tab PO SCH (09:22)
--- NOTE | 2020-06-29 09:34 | CR ---
PROCEDURE INFORMATION: Exam: XR Abdomen, 1 View Exam date and time: 06/27/2020 7:50 AM Age: 84 years old Clinical indication: Other: Diffuse upper and mid abdominal pain; Patient HX: I attached the prior CT abdomen report to the current images. TECHNIQUE: Imaging protocol: XR of the abdomen. Views: Frontal supine view of the abdomen. 1 View. (2 images total) COMPARISON: CT Abdomen Pelvis wo Cont 03/05/2017 5:41 PM (report not provided) FINDINGS: Gastrointestinal tract: The small bowel is not significantly air-distended. Air and stool are present within large bowel. Organs: Prostate radiation seeds are present. Vasculature: Atherosclerotic vascular calcifications are noted. Bones/joints: Median sternotomy wires are present. Degenerative changes involve the spine. Soft tissues: Phleboliths overlie the pelvis. IMPRESSION: Nonspecific bowel gas pattern. Thank you for allowing us to participate in the care of your patient. Dictated and Authenticated by: Anatoliy Cali MD 06/27/2020 9:19 AM Central Time ([place] & [place]) [facility]
--- NOTE | 2020-06-29 09:35 | CR ---
PROCEDURE INFORMATION: Exam: XR Chest, 1 View Exam date and time: 06/27/2020 7:58 AM Age: 84 years old Clinical indication: Other: Upper abdomen pain; Patient HX: I attached the prior CT chest report to the current images. TECHNIQUE: Imaging protocol: XR of the chest Views: 1 view. COMPARISON: CR Chest 1V Frontal 09/26/2016 2:20 PM (report not provided) FINDINGS: Lungs: There is mild bibasilar atelectasis/scarring. The lungs are otherwise clear. Pleural space: Unremarkable. No pleural effusion. No pneumothorax. Heart/Mediastinum: Unremarkable. No cardiomegaly. Bones/joints: There has been interval median sternotomy. Some chronic right rib fractures are again present, and there are some new, but chronic appearing left rib fractures. Degenerative changes again involve the spine. IMPRESSION: No evidence for acute pulmonary disease. Thank you for allowing us to participate in the care of your patient. Dictated and Authenticated by: Anatoliy Cali MD 06/27/2020 9:20 AM Central Time ([place] & [place]) [facility]
[2020-06-29] MEDS: Enoxaparin 40 MG/0.4 ML Syringe SUBCUT SCH (09:36)
[2020-06-29] MEDS: Tamsulosin 0.4 MG Cap.ER PO SCH (09:36)
[2020-06-29] MEDS: Aspirin 81 MG Tab.EC PO SCH (09:36)
--- NOTE | 2020-06-29 09:38 | CT ---
"PROCEDURE INFORMATION: Exam: CT Abdomen And Pelvis With Contrast Exam date and time: 06/27/2020 8:28 AM Age: 84 years old Clinical indication: Patient HX: Acute onset of mid and lower abdominal pain with abrupt nausea and vomiting. Markedly elevated lactic acid concerning for bowl infarction. IV contrast only. Creatinine is 1.1. Gfr > 60. ; Additional info: Vascular abdomen for possible bowel infarction TECHNIQUE: Imaging protocol: Computed tomography of the abdomen and pelvis with intravenous contrast. 3D rendering (Not supervised by radiologist): MIP and/or 3D reconstructed images were created by the technologist. Radiation optimization: All CT scans at this facility use at least one of these dose optimization techniques: automated exposure control; mA and/or kV adjustment per patient size (includes targeted exams where dose is matched to clinical indication); or iterative reconstruction. Contrast material: ISOVUE 370; Contrast volume: 95 ml; Contrast route: INTRAVENOUS (IV); COMPARISON: CT Abdomen Pelvis wo Cont 03/05/2017 5:41 PM FINDINGS: Lungs: The lung bases demonstrate mild atelectasis, scarring and emphysematous disease. Liver: The liver again contains a simple cyst measuring 1.4 cm. It appears otherwise unremarkable. Gallbladder and bile ducts: No gallstones are evident, but ultrasound would be more sensitive. No gross biliary ductal dilatation. Pancreas: Normal. No ductal dilation. Spleen: Normal. No splenomegaly. Adrenal glands: Normal. No mass. Kidneys and ureters: There is mild right-sided hydronephrosis and proximal hydroureter with mild delay of the right nephrogram secondary to a 4 x 3 x 6 mm stone in the proximal right ureter. There is also mild asymmetric right perinephric stranding. Beyond this, the ureter is not dilated, and no additional ureteral calculus is identified. Both kidneys demonstrate cortical scarring and thinning. ANAGAGANLAURA | Final Radiology Report CONFIDENTIALITY STATEMENT This report is intended only for use by the referring physician, and only in accordance with law. If you received this in error, call [phone]. Page 2 of 2 There also simple bilateral renal cysts measuring 1.3 cm on on either side, which are benign and do not require follow-up. Stomach and bowel: The unopacified small bowel is not significantly distended to suggest obstruction. The large bowel is grossly unremarkable in appearance. Appendix: The appendix is not identified, but there are no inflammatory changes in its expected region. Intraperitoneal space: No free air or significant free fluid. Vasculature: The abdominal aorta is nonaneurysmal. Atherosclerotic vascular calcifications are again present. Lymph nodes: Unremarkable. No enlarged lymph nodes. Urinary bladder: Unremarkable as visualized. Reproductive: Prostate radiation seeds are again present. Bones/joints: Median sternotomy wires are present. Some chronic right rib fractures are noted. Degenerative changes again involve the spine, sacroiliac joints and hips. The bones again appear osteopenic. Soft tissues: There are similar, small right and mildly larger, moderate left fat containing inguinal hernias. IMPRESSION: 1. Mild right-sided hydronephrosis and proximal hydroureter with mild asymmetric right perinephric stranding and delay of the right nephrogram secondary to a 6 mm proximal right ureteral stone. 2. Small right and moderate left fat containing inguinal hernias, stable on the right and mildly larger on the left as compared with 03/05/17. 3. Other nonurgent findings as described. COMMENTS: Consistent with the [employer]'s Incidental Findings Committee white paper (J Am Cassius Radiol 2018): Any incidental renal lesion less than 1 cm or classified as too small to characterize, or any incidental cystic renal lesion characterized as simple- appearing, is likely benign. No follow-up imaging is recommended for these lesions per consensus recommendations based on imaging criteria. Thank you for allowing us to participate in the care of your patient. Dictated and Authenticated by: Anatoliy Cali MD 06/27/2020 10:05 AM Central Time ([place] & [place]) [facility]"
--- NOTE | 2020-06-29 11:21 | PCM.PN ---
- General Info Date of Service: 06/29/20 Admission Dx/Problem (Free Text): Admission Diagnosis/Problem Admission Diagnosis/Problem Renal colic on right side Subjective Update: Reports that he is feeling well today. However, he was placed on oxygen at 1 L per nasal cannula overnight. States he has not had a bowel movement since Monday, which would make today day 3 of no bowel movement. Functional Status: Reports: Pain Controlled, Tolerating Diet, Ambulating, Urinating, Incentive Spirometry (Ordered to start today) - Review of Systems General: Reports: No Symptoms HEENT: Reports: Glasses Pulmonary: Reports: Shortness of Breath. Denies: Cough, Wheezing Cardiovascular: Reports: Dyspnea on Exertion. Denies: Chest Pain, Edema Gastrointestinal: Reports: Constipation. Denies: Decreased Appetite, Nausea, Vomiting Genitourinary: Reports: No Symptoms Musculoskeletal: Reports: No Symptoms Skin: Reports: No Symptoms Neurological: Reports: No Symptoms Psychiatric: Reports: No Symptoms - Patient Data Vitals - Most Recent: Last Vital Signs Temp 99.7 F 06/29/20 09:01 Pulse 62 06/29/20 09:19 Resp 16 06/29/20 09:01 BP 148/70 H 06/29/20 09:22 Pulse Ox 94 L 06/29/20 09:01 Weight - Most Recent: 162 lb 12.8 oz I&O - Last 24 Hours: Intake & Output 06/28/20 06/29/20 06/29/20 22:59 06:59 14:59 Intake Total 2040 400 Output Total 850 1400 Balance 1190 -1000 Lab Results Last 24 Hours: Laboratory Results - last 24 hr 06/27/20 06/29/20 06/29/20 Range/Units 05:43 08:55 08:55 WBC 5.88 (4.23-9.07) K/mm3 RBC 3.71 L (4.63-6.08) M/mm3 Hgb 11.4 L (13.7-17.5) gm/dl Hct 34.6 L (40.1-51.0) % MCV 93.3 H (79.0-92.2) fl MCH 30.7 (25.7-32.2) pg MCHC 32.9 (32.2-35.5) g/dl RDW Std Deviation 41.5 (35.1-43.9) fL Plt Count 161 L (163-337) K/mm3 MPV 10.2 (9.4-12.3) fl Neut % (Auto) 76.4 H (34.0-67.9) % Lymph % (Auto) 11.7 L (21.8-53.1) % [place] % (Auto) 10.4 (5.3-12.2) % Eos % (Auto) 1.2 (0.8-7.0) Baso % (Auto) 0.3 (0.1-1.2) % Neut # (Auto) 4.49 (1.78-5.38) K/mm3 Lymph # (Auto) 0.69 L (1.32-3.57) K/mm3 [place] # (Auto) 0.61 (0.30-0.82) K/mm3 Eos # (Auto) 0.07 (0.04-0.54) K/mm3 Baso # (Auto) 0.02 (0.01-0.08) K/mm3 Sodium 137 (136-145) mEq/L Potassium 3.0 L (3.5-5.1) mEq/L Chloride 102 (98-107) mEq/L Carbon Dioxide 25 (21-32) mEq/L Anion Gap 13.0 (5-15) BUN 10 (7-18) mg/dL Creatinine 1.0 (0.7-1.3) mg/dL Est Cr Clr Drug Dosing 55.38 mL/min Estimated GFR (MDRD) > 60 (>60) mL/min BUN/Creatinine Ratio 10.0 L (14-18) Glucose 109 (83-115) mg/dL Calcium 8.4 L (8.5-10.1) mg/dL Phosphorus (2.6-4.7) mg/dL Magnesium 1.9 (1.8-2.4) mg/dl Total Bilirubin 0.6 (0.2-1.0) mg/dL AST 31 (15-37) U/L ALT 19 (16-63) U/L Alkaline Phosphatase 54 (46-116) U/L C-Reactive Protein 9.3 H* (<1.0) mg/dL Total Protein 5.9 L (6.4-8.2) g/dl Albumin 2.8 L (3.4-5.0) g/dl Globulin 3.1 gm/dL Albumin/Globulin Ratio 0.9 L (1-2) Procalcitonin <0.05 (<0.10) ng/mL 06/29/20 Range/Units 08:55 WBC (4.23-9.07) K/mm3 RBC (4.63-6.08) M/mm3 Hgb (13.7-17.5) gm/dl Hct (40.1-51.0) % MCV (79.0-92.2) fl MCH (25.7-32.2) pg MCHC (32.2-35.5) g/dl RDW Std Deviation (35.1-43.9) fL Plt Count (163-337) K/mm3 MPV (9.4-12.3) fl Neut % (Auto) (34.0-67.9) % Lymph % (Auto) (21.8-53.1) % [place] % (Auto) (5.3-12.2) % Eos % (Auto) (0.8-7.0) Baso % (Auto) (0.1-1.2) % Neut # (Auto) (1.78-5.38) K/mm3 Lymph # (Auto) (1.32-3.57) K/mm3 [place] # (Auto) (0.30-0.82) K/mm3 Eos # (Auto) (0.04-0.54) K/mm3 Baso # (Auto) (0.01-0.08) K/mm3 Sodium (136-145) mEq/L Potassium (3.5-5.1) mEq/L Chloride (98-107) mEq/L Carbon Dioxide (21-32) mEq/L Anion Gap (5-15) BUN (7-18) mg/dL Creatinine (0.7-1.3) mg/dL Est Cr Clr Drug Dosing mL/min Estimated GFR (MDRD) (>60) mL/min BUN/Creatinine Ratio (14-18) Glucose (83-115) mg/dL Calcium (8.5-10.1) mg/dL Phosphorus 2.8 (2.6-4.7) mg/dL Magnesium (1.8-2.4) mg/dl Total Bilirubin (0.2-1.0) mg/dL AST (15-37) U/L ALT (16-63) U/L Alkaline Phosphatase (46-116) U/L C-Reactive Protein (<1.0) mg/dL Total Protein (6.4-8.2) g/dl Albumin (3.4-5.0) g/dl Globulin gm/dL Albumin/Globulin Ratio (1-2) Procalcitonin (<0.10) ng/mL Drew Results Last 24 Hours: Microbiology 06/27/20 07:52 Urine Culture - Preliminary Urine, Bladder Gram Negative Rods 06/27/20 05:10 Aerobic Blood Culture - Preliminary Blood - Venous Gram Negative Rods Anaerobic Blood Culture - Preliminary Gram Negative Rods 06/27/20 05:10 Aerobic Blood Culture - Preliminary Blood - Venous - Lab Draw Gram Negative Rods Anaerobic Blood Culture - Preliminary Gram Negative Rods Med Orders - Current: Current Medications Amlodipine Besylate (Norvasc) 5 mg PO DAILY [facility] Last Admin: 06/29/20 09:22 Dose: 5 mg Documented by: Aspirin (Halfprin) 81 mg PO DAILY [facility] Last Admin: 06/29/20 09:36 Dose: 81 mg Documented by: Calcium Carbonate/Glycine (Tums) 500 mg PO QID PRN PRN Reason: upset stomach Docusate Sodium (Colace) 100 mg PO DAILY [facility] Last Admin: 06/29/20 09:22 Dose: 100 mg Documented by: Enoxaparin Sodium (Lovenox) 40 mg SUBCUT DAILY [facility] Last Admin: 06/29/20 09:36 Dose: 40 mg Documented by: Fentanyl (Duragesic) 50 mcg TRDERM Q72H [facility] Last Admin: 06/27/20 15:17 Dose: 50 mcg Documented by: Hydromorphone HCl (Dilaudid) 0.5 mg IVPUSH Q2H PRN PRN Reason: Pain (severe 7-10) Piperacillin Sod/Tazobactam (Sod 4.5 gm/ Sodium Chloride) 100 mls @ 25 mls/hr IV Q8H [facility] Last Admin: 06/29/20 09:37 Dose: 25 mls/hr Documented by: Levofloxacin (Levaquin) 750 mg PO DAILY [facility] Last Admin: 06/29/20 09:22 Dose: 750 mg Documented by: Levothyroxine Sodium (Synthroid) 50 mcg PO ACBREAKFAST [facility] Last Admin: 06/29/20 06:14 Dose: 50 mcg Documented by: Metoprolol Tartrate (Lopressor) 25 mg PO BID [facility] Last Admin: 06/29/20 09:19 Dose: 25 mg Documented by: Miscellaneous Information (Remove Patch) 1 ea TRDERM Q72H [facility] Ondansetron HCl (Zofran) 4 mg IV Q4H PRN PRN Reason: Nausea/Vomiting Oxycodone HCl (Oxycodone) 5 mg PO Q4H PRN PRN Reason: Pain (moderate 4-6) Potassium Chloride (Klor-Con M20) 40 meq PO Q4H [facility] Stop: 06/29/20 19:16 Rosuvastatin Calcium (Crestor) 5 mg PO BEDTIME [facility] Last Admin: 06/28/20 21:14 Dose: 5 mg Documented by: Senna/Docusate Sodium (Senna Plus) 1 tab PO BID PRN PRN Reason: Constipation Last Admin: 06/29/20 09:36 Dose: 1 tab Documented by: Tamsulosin HCl (Flomax) 0.4 mg PO PCBREAKFAST [facility] Last Admin: 06/29/20 09:36 Dose: 0.4 mg Documented by: Discontinued Medications Amlodipine Besylate (Norvasc) 5 mg PO DAILY [facility] Last Admin: 06/27/20 15:30 Dose: Not Given Documented by: Fentanyl (Duragesic) 50 mcg TRDERM Q72H [facility] Last Admin: 06/27/20 15:29 Dose: Not Given Documented by: Hydromorphone HCl (Dilaudid) 0.5 mg IVPUSH ONETIME ONE Stop: 06/27/20 05:12 Last Admin: 06/27/20 05:26 Dose: 0.5 mg Documented by: Hydromorphone HCl (Dilaudid) 0.5 mg IVPUSH ONETIME ONE Stop: 06/27/20 05:55 Last Admin: 06/27/20 06:03 Dose: 0.5 mg Documented by: Hydromorphone HCl (Dilaudid) 0.5 mg IVPUSH ONETIME ONE Stop: 06/27/20 07:39 Last Admin: 06/27/20 07:43 Dose: 0.5 mg Documented by: Sodium Chloride (Normal Saline) 1,000 mls @ 1,000 mls/hr IV ASDIRECTED [facility] Last Admin: 06/27/20 05:26 Dose: 1,000 mls/hr Documented by: Lactated Ringer's (Ringers, Lactated) 1,000 mls @ 150 mls/hr IV ASDIRECTED [facility] Last Admin: 06/27/20 07:38 Dose: 150 mls/hr Documented by: Levofloxacin/Dextrose 750 mg/ (Premix) 150 mls @ 100 mls/hr IV ONETIME ONE Stop: 06/27/20 09:24 Last Admin: 06/27/20 08:05 Dose: 100 mls/hr Documented by: Sodium Chloride (Normal Saline) 100 mls @ 60 mls/hr IV ASDIRECTED [facility] Last Admin: 06/27/20 08:43 Dose: 60 mls/hr Documented by: Lactated Ringer's (Ringers, Lactated) 1,000 mls @ 150 mls/hr IV ASDIRECTED [facility] Last Admin: 06/27/20 20:18 Dose: 150 mls/hr Documented by: Lactated Ringer's (Ringers, Lactated) 500 mls @ 500 mls/hr IV .BOLUS ONE Stop: 06/27/20 15:16 Last Admin: 06/27/20 14:51 Dose: 500 mls/hr Documented by: Lactated Ringer's (Ringers, Lactated) Confirm Administered Dose 1,000 mls @ as directed .ROUTE .STK-MED ONE Stop: 06/27/20 19:51 Last Admin: 06/27/20 20:23 Dose: Not Given Documented by: Piperacillin Sod/Tazobactam (Sod 4.5 gm/ Sodium Chloride) 100 mls @ 200 mls/hr IV ONETIME ONE Stop: 06/28/20 02:03 Last Admin: 06/28/20 01:57 [facility] Dose: 200 mls/hr Documented by: Lactated Ringer's (Ringers, Lactated) 1,000 mls @ 150 mls/hr IV ASDIRECTED [facility] Last Admin: 06/28/20 04:37 Dose: 150 mls/hr Documented by: Magnesium Sulfate 2 gm/ Premix 50 mls @ 25 mls/hr IV ONETIME ONE Stop: 06/28/20 22:32 Last Admin: 06/28/20 21:59 Dose: 25 mls/hr Documented by: Iopamidol (Isovue-370 (76%)) 100 ml IVPUSH ONETIME ONE Stop: 06/27/20 08:19 Last Admin: 06/27/20 08:43 Dose: 100 ml Documented by: Iopamidol (Isovue-370 (76%)) 125 ml IVPUSH ONETIME ONE Stop: 06/27/20 08:19 Last Admin: 06/27/20 08:55 Dose: Not Given Documented by: Magnesium Hydroxide (Milk Of Magnesia) 30 ml PO ONETIME ONE Stop: 06/29/20 06:31 Last Admin: 06/29/20 06:14 Dose: 30 ml Documented by: Metoprolol Tartrate (Lopressor) 25 mg PO BID [facility] Last Admin: 06/27/20 15:29 Dose: Not Given Documented by: Ondansetron HCl (Zofran) 4 mg IVPUSH ONETIME ONE Stop: 06/27/20 05:12 Last Admin: 06/27/20 05:26 Dose: 4 mg Documented by: Sodium Chloride (Saline Flush) 10 ml FLUSH ONETIME ONE Stop: 06/27/20 08:19 Last Admin: 06/27/20 08:43 Dose: 10 ml Documented by: Tamsulosin HCl (Flomax) 0.4 mg PO ONETIME ONE Stop: 06/27/20 12:21 Last Admin: 06/27/20 15:07 Dose: Not Given Documented by: Tamsulosin HCl (Flomax) 0.4 mg PO ONETIME ONE Stop: 06/27/20 15:16 Last Admin: 06/27/20 15:15 Dose: 0.4 mg Documented by: - Exam Quality Assessment: Supplemental Oxygen (1 L per nasal cannula), DVT Prophylaxis (Lovenox) General: Alert, Oriented, Cooperative, No Acute Distress HEENT: Pupils Equal, Pupils Reactive, Mucous Membr. Moist/[place] Neck: Supple, Trachea Midline. No: Lymphadenopathy Lungs: Crackles (Right posterior middle and lower lobe.) Cardiovascular: Regular Rate, Regular Rhythm, No Murmurs GI/Abdominal Exam: Normal Bowel Sounds, Soft, Non-Tender, No Distention (Male) Exam: Deferred Back Exam: Normal Inspection, Full Range of Motion Extremities: Normal Inspection, Normal Range of Motion, Non-Tender, No Pedal Edema, Normal Capillary Refill Peripheral Pulses: 2+: Radial (L), Radial (R), Dorsalis Pedis (L), Dorsalis Pedis (R) Skin: Warm, Dry, Intact Neurological: No New Focal Deficit Psy/Mental Status: Alert, Normal Affect, Normal Mood Sepsis Event Note - Evaluation Sepsis Screening Result: No Definite Risk - Focused Exam Vital Signs: Vital Signs Temp Pulse Resp BP Pulse Ox Pulse Ox 06/29/20 09:22 148/70 H 06/29/20 09:19 62 148/70 H 06/29/20 09:01 99.7 F 62 16 148/70 H 94 L 06/29/20 08:23 95 06/29/20 03:36 97.3 F 64 20 166/76 H 96 06/28/20 23:56 98.1 F 59 L 16 139/80 92 L - Problem List & Annotations (1) Acute abdominal pain SNOMED Code(s): 642666483 Code(s): R10.9 - UNSPECIFIED ABDOMINAL PAIN Status: Acute Priority: High Current Visit: Yes (2) BPH with urinary obstruction SNOMED Code(s): 197163934 Code(s): N40.1 - BENIGN PROSTATIC HYPERPLASIA WITH LOWER URINARY TRACT SYMP; N13.8 - OTHER OBSTRUCTIVE AND REFLUX UROPATHY Status: Acute Priority: High Current Visit: Yes (3) Kidney stone on right side SNOMED Code(s): 25383665 Code(s): N20.0 - CALCULUS OF KIDNEY Status: Acute Priority: High Current Visit: Yes (4) Lactic acidosis SNOMED Code(s): 66620954 Code(s): E87.2 - ACIDOSIS Status: Acute Priority: High Current Visit: Yes (5) Urinary tract infection SNOMED Code(s): 18939565 Code(s): N39.0 - URINARY TRACT INFECTION, SITE NOT SPECIFIED Status: Acute Priority: High Current Visit: Yes Qualifiers: Urinary tract infection type: site unspecified Hematuria presence: without hematuria Qualified Code(s): N39.0 - Urinary tract infection, site not specified - Problem List Review Problem List Initiated/Reviewed/Updated: Yes - My Orders Last 24 Hours: My Active Orders 06/29/20 09:31 Chest 2V [CR] Routine 06/29/20 09:32 Consult to Case Management/[facility] Host/Hostess [CONS] Routine OT Evaluation and Treatment [CONS] Routine PT Evaluation and Treatment [CONS] Routine 06/29/20 11:15 RT Incentive Spirometry [RC] Q1HWA Potassium Chloride [Klor-Con M20] 40 meq PO Q4H - Assessment Assessment:: 06/27/2020 * 84-year-old male with acute onset nausea, vomiting, and diffuse abdominal pain at [address] results consistent with right kidney stone measuring 4 x 3 x 6 mm. * Prostate cancer post seed implant * Samuel is a history of kidney stones. Approximately 6 years he had to g et a stent after his ureter ruptured on the right side. Patient has a recurrence of his stone. This may be at scarring from the previous stone. It is small enough that he can likely pass spontaneously. Pain has been well controlled emergency department with Dilaudid. * UTI * Positive nitrites and urine WBCs. * Received Levaquin in the emergency department. * Urine and blood cultured. * This does not look like an infected stone. He has a normal white count with only a slight increase in his neutrophils likely secondary to stress, C-reactive protein, and is afebrile. * Lactic acidosis * Significant elevation in his lactic acid at 3.5 initially with a repeat of 2.6 after fluids. Unknown cause for this lactic acidosis at this time. CT did not appreciate any acute intra-abdominal process that would explain his lactic acidosis. * History of coronary artery disease, hypertension, [place], hyperlipidemia with a three-vessel CABG * Initial blood pressure was 185/91 likely secondary to pain. * BNP mildly elevated at 596 and likely not significant for this age * Hypomagnesemia * Magnesium 1.6 06/28/2020 * Bacteremia due to gram-negative rods * UTI -gram-negative rods * Symptomatic right proximal kidney stone measuring 4 x 3 x 6 mm * Right hydronephrosis * Hypomagnesemia * History of coronary artery disease, hypertension, [place], hyperlipidemia with a three-vessel CABG Patient's lactic acid came down to normal overnight. He is also much improved symptomatically and is afebrile. His white count continues to be normal and his absolute neutrophils are elevated at 5.64. Renal function continues to be normal. CRP did increase to 11.8. Procalcitonin from yesterday was negative at less than 0.05. Magnesium still low at 1.6. 06/29/20 * Increasing oxygen needs overnight. Now on 1 L per nasal cannula. States that he does get more short of breath when up independently in his room. * Complains of no bowel movement x3 days. * Blood culture and urine culture both growing gram-negative rods. Awaiting sensitivity report * Currently on Levaquin and Zosyn. * Echocardiogram today. Awaiting formal report. * Vital signs have been otherwise stable and he has been afebrile. * Potassium is low at 3.0 today that is down from 3.7 yesterday, magnesium up to 1.9 today, C-reactive protein down to 9.3. Still awaiting sensitivity report on urine and blood cultures. * Flomax for kidney stone - Plan Plan:: Assessment 06/27/2020 * 84-year-old male with acute onset nausea, vomiting, and diffuse abdominal pain at [address] results consistent with right kidney stone measuring 4 x 3 x 6 mm. * Prostate cancer post seed implant * Samuel is a history of kidney stones. Approximately 6 years he had to get a stent after his ureter ruptured on the right side. Patient has a recurrence of his stone. This may be at scarring from the previous stone. It is small enough that he can likely pass spontaneously. Pain has been well controlled emergency department with Dilaudid. * UTI * Positive nitrites and urine WBCs. * Received Levaquin in the emergency department. * Urine and blood cultured. * This does not look like an infected stone. He has a normal white count with only a slight increase in his neutrophils likely secondary to stress, C-reactive protein, and is afebrile. * Lactic acidosis * Significant elevation in his lactic acid at 3.5 initially with a repeat of 2.6 after fluids. Unknown cause for this lactic acidosis at this time. CT did not appreciate any acute intra-abdominal process that would explain his lactic acidosis. * History of coronary artery disease, hypertension, [place], hyperlipidemia with a three-vessel CABG * Initial blood pressure was 185/91 likely secondary to pain. * BNP mildly elevated at 596 and likely not significant for this age * Hypomagnesemia * Magnesium 1.6 06/28/2020 * Bacteremia due to gram-negative rods * UTI -gram-negative rods * Symptomatic right proximal kidney stone measuring 4 x 3 x 6 mm * Right hydronephrosis * Hypomagnesemia * History of coronary artery disease, hypertension, [place], hyperlipidemia with a three-vessel CABG Patient's lactic acid came down to normal overnight. He is also much improved symptomatically and is afebrile. His white count continues to be normal and his absolute neutrophils are elevated at 5.64. Renal function continues to be normal. CRP did increase to 11.8. Procalcitonin from yesterday was negative at less than 0.05. Magnesium still low at 1.6. Plan * Continue Levaquin 750 mg daily and await culture results. * Stop IV fluids * Replace magnesium. * Started Zosyn * Awaiting final urine and blood cultures * Follow vitals every 4 hours. * Currently on fentanyl for pain. * Dilaudid 0.5 mg every 2 hours as needed pain. * Strain urine * Echocardiogram in the morning * Check CBC, CMP, mag, phosphorus, CRP * VTE prophylaxis with Lovenox * CODE STATUS: DNR/DNI * Length of stay likely 2 to 3 days. 06/29/20 * Continue Levaquin and Zosyn until cultures return. * Replace potassium * Strain all urine * Await echocardiogram results * Continue to monitor vital signs * Recheck labs in the a.m. and correct any electrolyte abnormalities * Continue Lovenox for DVT prophylaxis * Milk of magnesia and senna given for constipation today * PT OT to evaluate and treat * Chest x-ray regarding increased oxygen needs reveals worsening atelectasis right lower lobe. No acute disease. * Start incentive spirometer every 1 hour while awake.
--- NOTE | 2020-06-29 12:47 | CR ---
PROCEDURE INFORMATION: Exam: XR Chest, 2 Views Exam date and time: 06/29/2020 10:01 AM Age: 84 years old Clinical indication: Other: Increased o2 needs TECHNIQUE: Imaging protocol: XR of the chest Views: 2 views. COMPARISON: OT Chest 1V Frontal 06/27/2020 7:58 AM FINDINGS: Lungs: Worsened right lower lobe subsegmental atelectasis. The lungs are otherwise clear. Pleural space: Normal. Heart/Mediastinum: Normal heart and cardiomediastinal silhouette. Vasculature: Normal pulmonary vessel caliber. Normal aorta. Bones/joints: Healed changes from median sternotomy. Multiple healed right rib fractures. Healed upper left rib fractures. No acute fractures. IMPRESSION: Worsened atelectasis right lower lobe. No acute disease. Thank you for allowing us to participate in the care of your patient. Dictated and Authenticated by: Bladimir Sandhu MD 06/29/2020 11:15 AM Central Time ([place] & [place]) [facility]
[2020-06-29] MEDS: Potassium Chloride 20 MEQ Tab.ER PO SCH ×3 (12:56→19:39)
[2020-06-29] MEDS: Rosuvastatin 10 MG Tab PO SCH ×3 (19:50→23:06)
[2020-06-30] MEDS: Piperacillin/Tazobactam 4.5 GM in Sodium Chloride 0.9% 100 ML IV SCH ×3 (04:07→18:22)
[2020-06-30] MEDS: Levothyroxine 50 MCG Tab PO SCH (05:13)
[2020-06-30] MEDS: Tamsulosin 0.4 MG Cap.ER PO SCH (09:19)
[2020-06-30] MEDS: Docusate Sodium 100 MG Cap PO SCH (09:20)
[2020-06-30] MEDS: Aspirin 81 MG Tab.EC PO SCH (09:21)
[2020-06-30] MEDS: Levofloxacin 750 MG Tab PO SCH (09:21)
[2020-06-30] MEDS: Enoxaparin 40 MG/0.4 ML Syringe SUBCUT SCH (09:21)
[2020-06-30] MEDS: Metoprolol Tartrate 25 MG Tab PO SCH ×2 (09:25→20:32)
[2020-06-30] MEDS: amLODIPine 5 MG Tab PO SCH (09:26)
--- NOTE | 2020-06-30 14:05 | PCM.PN ---
- General Info Date of Service: 06/30/20 Admission Dx/Problem (Free Text): Admission Diagnosis/Problem Admission Diagnosis/Problem Renal colic on right side Subjective Update: States he is feeling about the same today. He is no longer on oxygen. And has been up independently in his room. Functional Status: Reports: Pain Controlled, Tolerating Diet, Ambulating, Urinating - Review of Systems General: Reports: No Symptoms HEENT: Reports: No Symptoms Pulmonary: Reports: No Symptoms Cardiovascular: Reports: No Symptoms Gastrointestinal: Reports: No Symptoms Genitourinary: Reports: No Symptoms Musculoskeletal: Reports: No Symptoms Skin: Reports: No Symptoms Neurological: Reports: No Symptoms Psychiatric: Reports: No Symptoms - Patient Data Vitals - Most Recent: Last Vital Signs Temp 97.7 F 06/30/20 11:33 Pulse 64 06/30/20 11:33 Resp 16 06/30/20 11:33 BP 115/72 06/30/20 12:19 Pulse Ox 94 L 06/30/20 11:33 Weight - Most Recent: 159 lb 6.4 oz I&O - Last 24 Hours: Intake & Output 06/29/20 06/30/20 06/30/20 22:59 06:59 14:59 Intake Total 930 250 Output Total 1300 1350 Balance -370 -1100 Lab Results Last 24 Hours: Laboratory Results - last 24 hr 06/30/20 06/30/20 Range/Units 04:55 04:55 WBC 5.19 (4.23-9.07) K/mm3 RBC 3.60 L (4.63-6.08) M/mm3 Hgb 11.0 L (13.7-17.5) gm/dl Hct 33.7 L (40.1-51.0) % MCV 93.6 H (79.0-92.2) fl MCH 30.6 (25.7-32.2) pg MCHC 32.6 (32.2-35.5) g/dl RDW Std Deviation 41.9 (35.1-43.9) fL Plt Count 170 (163-337) K/mm3 MPV 10.6 (9.4-12.3) fl Neut % (Auto) 69.9 H (34.0-67.9) % Lymph % (Auto) 15.4 L (21.8-53.1) % [place] % (Auto) 11.8 (5.3-12.2) % Eos % (Auto) 2.3 (0.8-7.0) Baso % (Auto) 0.6 (0.1-1.2) % Neut # (Auto) 3.63 (1.78-5.38) K/mm3 Lymph # (Auto) 0.80 L (1.32-3.57) K/mm3 [place] # (Auto) 0.61 (0.30-0.82) K/mm3 Eos # (Auto) 0.12 (0.04-0.54) K/mm3 Baso # (Auto) 0.03 (0.01-0.08) K/mm3 Sodium 137 (136-145) mEq/L Potassium 4.1 (3.5-5.1) mEq/L Chloride 104 (98-107) mEq/L Carbon Dioxide 22 (21-32) mEq/L Anion Gap 15.1 H (5-15) BUN 8 (7-18) mg/dL Creatinine 0.9 (0.7-1.3) mg/dL Est Cr Clr Drug Dosing 60.25 mL/min Estimated GFR (MDRD) > 60 (>60) mL/min BUN/Creatinine Ratio 8.9 L (14-18) Glucose 93 (83-115) mg/dL Calcium 8.5 (8.5-10.1) mg/dL Magnesium 1.9 (1.8-2.4) mg/dl Total Bilirubin 0.5 (0.2-1.0) mg/dL AST 31 (15-37) U/L ALT 21 (16-63) U/L Alkaline Phosphatase 49 (46-116) U/L C-Reactive Protein 5.6 H* (<1.0) mg/dL Total Protein 5.8 L (6.4-8.2) g/dl Albumin 2.8 L (3.4-5.0) g/dl Globulin 3.0 gm/dL Albumin/Globulin Ratio 0.9 L (1-2) Drew Results Last 24 Hours: Microbiology 06/27/20 07:52 Urine Culture - Preliminary Urine, Bladder Gram Negative Rods 06/27/20 05:10 Aerobic Blood Culture - Preliminary Blood - Venous Gram Negative Rods Anaerobic Blood Culture - Preliminary Gram Negative Rods Med Orders - Current: Current Medications Amlodipine Besylate (Norvasc) 5 mg PO DAILY [facility] Last Admin: 06/30/20 09:26 Dose: 5 mg Documented by: Aspirin (Halfprin) 81 mg PO DAILY [facility] Last Admin: 06/30/20 09:21 Dose: 81 mg Documented by: Calcium Carbonate/Glycine (Tums) 500 mg PO QID PRN PRN Reason: upset stomach Docusate Sodium (Colace) 100 mg PO DAILY [facility] Last Admin: 06/30/20 09:20 Dose: 100 mg Documented by: Enoxaparin Sodium (Lovenox) 40 mg SUBCUT DAILY [facility] Last Admin: 06/30/20 09:21 Dose: 40 mg Documented by: Fentanyl (Duragesic) 50 mcg TRDERM Q72H [facility] Last Admin: 06/27/20 15:17 Dose: 50 mcg Documented by: Hydromorphone HCl (Dilaudid) 0.5 mg IVPUSH Q2H PRN PRN Reason: Pain (severe 7-10) Piperacillin Sod/Tazobactam (Sod 4.5 gm/ Sodium Chloride) 100 mls @ 25 mls/hr IV Q8H [facility] Last Admin: 06/30/20 10:31 Dose: 25 mls/hr Documented by: Levofloxacin (Levaquin) 750 mg PO DAILY [facility] Last Admin: 06/30/20 09:21 Dose: 750 mg Documented by: Levothyroxine Sodium (Synthroid) 50 mcg PO ACBREAKFAST [facility] Last Admin: 06/30/20 05:13 Dose: 50 mcg Documented by: Metoprolol Tartrate (Lopressor) 25 mg PO BID [facility] Last Admin: 06/30/20 09:25 Dose: 25 mg Documented by: Miscellaneous Information (Remove Patch) 1 ea TRDERM Q72H [facility] Ondansetron HCl (Zofran) 4 mg IV Q4H PRN PRN Reason: Nausea/Vomiting Last Admin: 06/30/20 09:22 Dose: 4 mg Documented by: Oxycodone HCl (Oxycodone) 5 mg PO Q4H PRN PRN Reason: Pain (moderate 4-6) Rosuvastatin Calcium (Crestor) 5 mg PO BEDTIME [facility] Last Admin: 06/29/20 23:06 Dose: Not Given Documented by: Senna/Docusate Sodium (Senna Plus) 1 tab PO BID PRN PRN Reason: Constipation Last Admin: 06/29/20 09:36 Dose: 1 tab Documented by: Tamsulosin HCl (Flomax) 0.4 mg PO PCBREAKFAST [facility] Last Admin: 06/30/20 09:19 Dose: 0.4 mg Documented by: Discontinued Medications Amlodipine Besylate (Norvasc) 5 mg PO DAILY [facility] Last Admin: 06/27/20 15:30 Dose: Not Given Documented by: Fentanyl (Duragesic) 50 mcg TRDERM Q72H [facility] Last Admin: 06/27/20 15:29 Dose: Not Given Documented by: Hydromorphone HCl (Dilaudid) 0.5 mg IVPUSH ONETIME ONE Stop: 06/27/20 05:12 Last Admin: 06/27/20 05:26 Dose: 0.5 mg Documented by: Hydromorphone HCl (Dilaudid) 0.5 mg IVPUSH ONETIME ONE Stop: 06/27/20 05:55 Last Admin: 06/27/20 06:03 Dose: 0.5 mg Documented by: Hydromorphone HCl (Dilaudid) 0.5 mg IVPUSH ONETIME ONE Stop: 06/27/20 07:39 Last Admin: 06/27/20 07:43 Dose: 0.5 mg Documented by: Sodium Chloride (Normal Saline) 1,000 mls @ 1,000 mls/hr IV ASDIRECTED [facility] Last Admin: 06/27/20 05:26 Dose: 1,000 mls/hr Documented by: Lactated Ringer's (Ringers, Lactated) 1,000 mls [facility] Admin: 06/27/20 07:38 Dose: 150 mls/hr Documented by: Levofloxacin/Dextrose 750 mg/ (Premix) 150 mls @ 100 mls/hr IV ONETIME ONE Stop: 06/27/20 09:24 Last Admin: 06/27/20 08:05 Dose: 100 mls/hr Documented by: Sodium Chloride (Normal Saline) 100 mls @ 60 [facility]ls[facility] Last Admin: 06/27/20 08:43 Dose: 60 mls/hr Documented by: Lactated Ringer's (Ringers, Lactated) 1,000 mls @ 150 [facility]ls[facility] Last Admin: 06/27/20 20:18 Dose: 150 mls/hr Documented by: Lactated Ringer's (Ringers, Lactated) 500 mls @ 500 mls/hr IV .BOLUS ONE Stop: 06/27/20 15:16 Last Admin: 06/27/20 14:51 Dose: 500 mls/hr Documented by: Lactated Ringer's (Ringers, Lactated) Confirm Administered Dose 1,000 mls @ as directed .ROUTE .STK-MED ONE Stop: 06/27/20 19:51 Last Admin: 06/27/20 20:23 Dose: Not Given Documented by: Piperacillin Sod/Tazobactam (Sod 4.5 gm/ Sodium Chloride) 100 mls @ 200 mls/hr IV ONETIME ONE Stop: 06/28/20 02:03 Last Admin: 06/28/20 01:57 [facility] Dose: 200 mls/hr Documented by: Lactated Ringer's (Ringers, Lactated) 1,000 mls @ 150 [facility]ls[facility] Last Admin: 06/28/20 04:37 Dose: 150 mls/hr Documented by: Magnesium Sulfate 2 gm/ Premix 50 mls @ 25 mls/hr IV ONETIME ONE Stop: 06/28/20 22:32 Last Admin: 06/28/20 21:59 Dose: 25 mls/hr Documented by: Iopamidol (Isovue-370 (76%)) 100 ml IVPUSH ONETIME ONE Stop: 06/27/20 08:19 Last Admin: 06/27/20 08:43 Dose: 100 ml Documented by: Iopamidol (Isovue-370 (76%)) 125 ml IVPUSH ONETIME ONE Stop: 06/27/20 08:19 Last Admin: 06/27/20 08:55 Dose: Not Given Documented by: Magnesium Hydroxide (Milk Of Magnesia) 30 ml PO ONETIME ONE Stop: 06/29/20 06:31 Last Admin: 06/29/20 06:14 Dose: 30 ml Documented by: Metoprolol Tartrate (Lopressor) 25 mg PO BID [facility] Last Admin: 06/27/20 15:29 Dose: Not Given Documented by: Ondansetron HCl (Zofran) 4 mg IVPUSH ONETIME ONE Stop: 06/27/20 05:12 Last Admin: 06/27/20 05:26 Dose: 4 mg Documented by: Potassium Chloride (Klor-Con M20) 40 meq PO Q4H KEVIN Stop: 06/29/20 20:01 Last Admin: 06/29/20 19:39 Dose: 40 meq Documented by: Sodium Chloride (Saline Flush) 10 ml FLUSH ONETIME ONE Stop: 06/27/20 08:19 Last Admin: 06/27/20 08:43 Dose: 10 ml Documented by: Tamsulosin HCl (Flomax) 0.4 mg PO ONETIME ONE Stop: 06/27/20 12:21 Last Admin: 06/27/20 15:07 Dose: Not Given Documented by: Tamsulosin HCl (Flomax) 0.4 mg PO ONETIME ONE Stop: 06/27/20 15:16 Last Admin: 06/27/20 15:15 Dose: 0.4 mg Documented by: - Exam Quality Assessment: DVT Prophylaxis (Lovenox). No: Supplemental Oxygen General: Alert, Oriented, Cooperative, No Acute Distress HEENT: Pupils Equal, Pupils Reactive, Mucous Membr. Moist/[place] Neck: Supple, Trachea Midline. No: Lymphadenopathy Lungs: Clear to Auscultation, Normal Respiratory Effort Cardiovascular: Regular Rate, Regular Rhythm, No Murmurs GI/Abdominal Exam: Normal Bowel Sounds, Soft, Non-Tender, No Distention (Male) Exam: Deferred Back Exam: Normal Inspection, Full Range of Motion Extremities: Normal Inspection, Normal Range of Motion, Non-Tender, No Pedal Edema, Normal Capillary Refill Peripheral Pulses: 2+: Radial (L), Radial (R), Dorsalis Pedis (L), Dorsalis Pedis (R) Skin: Warm, Dry, Intact Neurological: No New Focal Deficit Psy/Mental Status: Alert, Normal Affect, Normal Mood Sepsis Event Note - Evaluation Sepsis Screening Result: No Definite Risk - Focused Exam Vital Signs: Vital Signs Temp Pulse Resp BP Pulse Ox 06/30/20 12:19 115/72 06/30/20 11:50 107/48 L 06/30/20 11:33 97.7 F 64 16 92/61 94 L 06/30/20 09:26 144/81 H 06/30/20 09:25 69 144/81 H 97 06/30/20 09:24 144/81 H 06/30/20 08:17 97.9 F 64 18 138/94 H 98 06/30/20 03:53 98.4 F 62 16 139/66 96 - Problem List & Annotations (1) Acute abdominal pain SNOMED Code(s): 557025650 Code(s): R10.9 - UNSPECIFIED ABDOMINAL PAIN Status: Acute Priority: High Current Visit: Yes (2) BPH with urinary obstruction SNOMED Code(s): 412833550 Code(s): N40.1 - BENIGN PROSTATIC HYPERPLASIA WITH LOWER URINARY TRACT SYMP; N13.8 - OTHER OBSTRUCTIVE AND REFLUX UROPATHY Status: Acute Priority: High Current Visit: Yes (3) Kidney stone on right side SNOMED Code(s): 85759804 Code(s): N20.0 - CALCULUS OF KIDNEY Status: Acute Priority: High Current Visit: Yes (4) Lactic acidosis SNOMED Code(s): 16477067 Code(s): E87.2 - ACIDOSIS Status: Acute Priority: High Current Visit: Yes (5) Urinary tract infection SNOMED Code(s): 46982401 Code(s): N39.0 - URINARY TRACT INFECTION, SITE NOT SPECIFIED Status: Acute Priority: High Current Visit: Yes Qualifiers: Urinary tract infection type: site unspecified Hematuria presence: without hematuria Qualified Code(s): N39.0 - Urinary tract infection, site not specified - Problem List Review Problem List Initiated/Reviewed/Updated: Yes - Assessment Assessment:: 06/27/2020 * 84-year-old male with acute onset nausea, vomiting, and diffuse abdominal pain at [address] results consistent with right kidney stone measuring 4 x 3 x 6 mm. * Prostate cancer post seed implant * Samuel is a history of kidney stones. Approximately 6 years he had to get a stent after his ureter ruptured on the right side. Patient has a recurrence of his stone. This may be at scarring from the previous stone. It is small enough that he can likely pass spontaneously. Pain has been well controlled emergency department with Dilaudid. * UTI * Positive nitrites and urine WBCs. * Received Levaquin in the emergency department. * Urine and blood cultured. * This does not look like an infected stone. He has a normal white count with only a slight increase in his neutrophils likely secondary to stress, C-reactive protein, and is afebrile. * Lactic acidosis * Significant elevation in his lactic acid at 3.5 initially with a repeat of 2.6 after fluids. Unknown cause for this lactic acidosis at this time. CT did not appreciate any acute intra-abdominal process that would explain his lactic acidosis. * History of coronary artery disease, hypertension, RI, hyperlipidemia with a three-vessel CABG * Initial blood pressure was 185/91 likely secondary to pain. * BNP mildly elevated at 596 and likely not significant for this age * Hypomagnesemia * Magnesium 1.6 06/28/2020 * Bacteremia due to gram-negative rods * UTI -gram-negative rods * Symptomatic right proximal kidney stone measuring 4 x 3 x 6 mm * Right hydronephrosis * Hypomagnesemia * History of coronary artery disease, hypertension, RI, hyperlipidemia with a three-vessel CABG Patient's lactic acid came down to normal overnight. He is also much improved symptomatically and is afebrile. His white count continues to be normal and his absolute neutrophils are elevated at 5.64. Renal function continues to be normal. CRP did increase to 11.8. Procalcitonin from yesterday was negative at less than 0.05. Magnesium still low at 1.6. 06/29/20 * Increasing oxygen needs overnight. Now on 1 L per nasal cannula. States that he does get more short of breath when up independently in his room. * Complains of no bowel movement x3 days. * Blood culture and urine culture both growing gram-negative rods. Awaiting sensitivity report * Currently on Levaquin and Zosyn. * Echocardiogram today. Awaiting formal report. * Vital signs have been otherwise stable and he has been afebrile. * Potassium is low at 3.0 today that is down from 3.7 yesterday, magnesium up to 1.9 today, C-reactive protein down to 9.3. Still awaiting sensitivity report on urine and blood cultures. * Flomax for kidney stone 06/30/20 * Currently on room air * Did have a bowel movement yesterday. * Waiting blood culture and urine culture sensitivity report. * Continues on Levaquin and Zosyn. * Vital signs remained stable. * C-reactive protein down to 5.6. * Echocardiogram completed 06/29/2020: #1 left ventricular ejection fraction, by visual estimation, is 60 to 65%. #2 normal left ventricular systolic function. #3 mild proximal septal hypertrophy. #4 pseudonormal grade 2 pattern of left ventricular diastolic filling. #5 no aortic valve vegetation. #6 mild to moderate eccentric mitral valve regurgitation. #7 no mitral valve vegetation is visualized. #8 trace of aortic valve regurgitation. #9 mild tricuspid valve regurgitation. #10 no tricuspid valve vegetation. #11 the right ventricular systolic pressure is mildly elevated at 39.0 mmHg. #12 no regional wall motion abnormalities. #13 there is mild biatrial dilation. - Plan Plan:: Assessment 06/27/2020 * 84-year-old male with acute onset nausea, vomiting, and diffuse abdominal pain at [address] results consistent with right kidney stone measuring 4 x 3 x 6 mm. * Prostate cancer post seed implant * Samuel is a history of kidney stones. Approximately 6 years he had to get a stent after his ureter ruptured on the right side. Patient has a recurrence of his stone. This may be at scarring from the previous stone. It is small enough that he can likely pass spontaneously. Pain has been well controlled emergency department with Dilaudid. * UTI * Positive nitrites and urine WBCs. * Received Levaquin in the emergency department. * Urine and blood cultured. * This does not look like an infected stone. He has a normal white count with only a slight increase in his neutrophils likely secondary to stress, C-reactive protein, and is afebrile. * Lactic acidosis * Significant elevation in his lactic acid at 3.5 initially with a repeat of 2.6 after fluids. Unknown cause for this lactic acidosis at this time. CT did not appreciate any acute intra-abdominal process that would explain his lactic acidosis. * History of coronary artery disease, hypertension, RI, hyperlipidemia with a three-vessel CABG * Initial blood pressure was 185/91 likely secondary to pain. * BNP mildly elevated at 596 and likely not significant for this age * Hypomagnesemia * Magnesium 1.6 06/28/2020 * Bacteremia due to gram-negative rods * UTI -gram-negative rods * Symptomatic right proximal kidney stone measuring 4 x 3 x 6 mm * Right hydronephrosis * Hypomagnesemia * History of coronary artery disease, hypertension, RI, hyperlipidemia with a three-vessel CABG Patient's lactic acid came down to normal overnight. He is also much improved symptomatically and is afebrile. His white count continues to be normal and his absolute neutrophils are elevated at 5.64. Renal function continues to be normal. CRP did increase to 11.8. Procalcitonin from yesterday was negative at less than 0.05. Magnesium still low at 1.6. Plan * Continue Levaquin 750 mg daily and await culture results. * Stop IV fluids * Replace magnesium. * Started Zosyn * Awaiting final urine and blood cultures * Follow vitals every 4 hours. * Currently on fentanyl for pain. * Dilaudid 0.5 mg every 2 hours as needed pain. * Strain urine * Echocardiogram in the morning * Check CBC, CMP, mag, phosphorus, CRP * VTE prophylaxis with Lovenox * CODE STATUS: DNR/DNI * Length of stay likely 2 to 3 days. 06/29/20 * Continue Levaquin and Zosyn until cultures return. * Replace potassium * Strain all urine * Await echocardiogram results * Continue to monitor vital signs * Recheck labs in the a.m. and correct any electrolyte abnormalities * Continue Lovenox for DVT prophylaxis * Milk of magnesia and senna given for constipation today * PT OT to evaluate and treat * Chest x-ray regarding increased oxygen needs reveals worsening atelectasis right lower lobe. No acute disease. * Start incentive spirometer every 1 hour while awake. 06/30/20 * Continue Levaquin and Zosyn. * Strain all urine * Continue to monitor vital signs. * Lovenox for DVT prophylaxis * Continue incentive spirometer every 1 hour while awake. * Length of stay is greater than 96 hours due to the treatment for bacteremia and waiting sensitivity report.
[2020-06-30] MEDS: fentaNYL 50 MCG/HR Transdermal Patch TRDERM SCH (18:22)
[2020-06-30] MEDS: Rosuvastatin 10 MG Tab PO SCH (20:32)
[2020-07-01] MEDS: Piperacillin/Tazobactam 4.5 GM in Sodium Chloride 0.9% 100 ML IV SCH (02:00)
[2020-07-01] MEDS: Levothyroxine 50 MCG Tab PO SCH (05:53)
[2020-07-01] MEDS: Levofloxacin 750 MG Tab PO SCH (08:08)
[2020-07-01] MEDS: Docusate Sodium 100 MG Cap PO SCH (08:08)
[2020-07-01] MEDS: Metoprolol Tartrate 25 MG Tab PO SCH ×2 (08:09→22:27)
[2020-07-01] MEDS: Aspirin 81 MG Tab.EC PO SCH (08:09)
[2020-07-01] MEDS: amLODIPine 5 MG Tab PO SCH (08:10)
[2020-07-01] MEDS: Enoxaparin 40 MG/0.4 ML Syringe SUBCUT SCH (08:10)
[2020-07-01] MEDS: Tamsulosin 0.4 MG Cap.ER PO SCH (08:11)
[2020-07-01] MEDS ORDERED: Piperacillin/Tazobactam 4.5 GM in Sodium Chloride 0.9% 100 ML IV SCH (09:00)
--- NOTE | 2020-07-01 14:32 | PCM.PN ---
<Saran Gil M - Last Filed: 07/01/20 14:37> - General Info Date of Service: 07/01/20 Admission Dx/Problem (Free Text): Admission Diagnosis/Problem Admission Diagnosis/Problem Renal colic on right side Subjective Update: Patient reports feeling well today. States he is ready to go home. Functional Status: Reports: Pain Controlled, Tolerating Diet, Ambulating, Urinating - Review of Systems General: Reports: No Symptoms HEENT: Reports: No Symptoms Pulmonary: Reports: No Symptoms Cardiovascular: Reports: No Symptoms Gastrointestinal: Reports: No Symptoms Genitourinary: Reports: No Symptoms. Denies: Dysuria, Frequency, Flank Pain Musculoskeletal: Reports: No Symptoms Skin: Reports: No Symptoms Neurological: Reports: No Symptoms Psychiatric: Reports: No Symptoms - Patient Data Vitals - Most Recent: Last Vital Signs Temp 97.3 F 07/01/20 08:01 Pulse 58 L 07/01/20 08:09 Resp 15 07/01/20 08:01 BP 148/67 H 07/01/20 08:10 Pulse Ox 94 L 07/01/20 08:01 Weight - Most Recent: 71.35 kg I&O - Last 24 Hours: Intake & Output 06/30/20 07/01/20 07/01/20 22:59 06:59 14:59 Intake Total 1130 300 0 Output Total 900 500 Balance 230 -200 0 Drew Results Last 24 Hours: Microbiology 06/27/20 05:10 Aerobic Blood Culture - Final Blood - Venous - Lab Draw Gram Negative Rods Anaerobic Blood Culture - Final Gram Negative Rods 06/27/20 05:10 Aerobic Blood Culture - Final Blood - Venous Klebsiella Pneumoniae Klebsiella Pneumoniae#2 Anaerobic Blood Culture - Final Gram Negative Rods 06/27/20 07:52 Urine Culture - Final Urine, Bladder Klebsiella Species Med Orders - Current: Current Medications Amlodipine Besylate (Norvasc) 5 mg PO DAILY ON LICENSE OF [facility] Last Admin: 07/01/20 08:10 Dose: 5 mg Documented by: Aspirin (Halfprin) 81 mg PO DAILY ON LICENSE OF [facility] Last Admin: 07/01/20 08:09 Dose: 81 mg Documented by: Calcium Carbonate/Glycine (Tums) 500 mg PO QID PRN PRN Reason: upset stomach Docusate Sodium (Colace) 100 mg PO DAILY ON LICENSE OF [facility] Last Admin: 07/01/20 08:08 Dose: 100 mg Documented by: Enoxaparin Sodium (Lovenox) 40 mg SUBCUT DAILY ON LICENSE OF [facility] Last Admin: 07/01/20 08:10 Dose: 40 mg Documented by: Fentanyl (Duragesic) 50 mcg TRDERM Q72H ON LICENSE OF [facility] Last Admin: 06/30/20 18:22 Dose: 50 mcg Documented by: Hydromorphone HCl (Dilaudid) 0.5 mg IVPUSH Q2H PRN PRN Reason: Pain (severe 7-10) Levofloxacin (Levaquin) 750 mg PO DAILY ON LICENSE OF [facility] Last Admin: 07/01/20 08:08 Dose: 750 mg Documented by: Levothyroxine Sodium (Synthroid) 50 mcg PO ACBREAKFAST ON LICENSE OF [facility] Last Admin: 07/01/20 05:53 Dose: 50 mcg Documented by: Metoprolol Tartrate (Lopressor) 25 mg PO BID ON LICENSE OF [facility] Last Admin: 07/01/20 08:09 Dose: 25 mg Documented by: Miscellaneous Information (Remove Patch) 1 ea TRDERM Q72H ON LICENSE OF [facility] Last Admin: 06/30/20 18:22 Dose: 1 ea Documented by: Ondansetron HCl (Zofran) 4 mg IV Q4H PRN PRN Reason: Nausea/Vomiting Last Admin: 06/30/20 09:22 Dose: 4 mg Documented by: Oxycodone HCl (Oxycodone) 5 mg PO Q4H PRN PRN Reason: Pain (moderate 4-6) Rosuvastatin Calcium (Crestor) 5 mg PO BEDTIME ON LICENSE OF [facility] Last Admin: 06/30/20 20:32 Dose: 5 mg Documented by: Senna/Docusate Sodium (Senna Plus) 1 tab PO BID PRN PRN Reason: Constipation Last Admin: 06/29/20 09:36 Dose: 1 tab Documented by: Tamsulosin HCl (Flomax) 0.4 mg PO DAILY ON LICENSE OF [facility] Last Admin: 07/01/20 08:11 Dose: 0.4 mg Documented by: Discontinued Medications Amlodipine Besylate (Norvasc) 5 mg PO DAILY ON LICENSE OF [facility] Last Admin: 06/27/20 15:30 Dose: Not Given Documented by: Fentanyl (Duragesic) 50 mcg TRDERM Q72H ON LICENSE OF [facility] Last Admin: 06/27/20 15:29 Dose: Not Given Documented by: Hydromorphone HCl (Dilaudid) 0.5 mg IVPUSH ONETIME ONE Stop: 06/27/20 05:12 Last Admin: 06/27/20 05:26 Dose: 0.5 mg Documented by: Hydromorphone HCl (Dilaudid) 0.5 mg IVPUSH ONETIME ONE Stop: 06/27/20 05:55 Last Admin: 06/27/20 06:03 Dose: 0.5 mg Documented by: Hydromorphone HCl (Dilaudid) 0.5 mg IVPUSH ONETIME ONE Stop: 06/27/20 07:39 Last Admin: 06/27/20 07:43 Dose: 0.5 mg Documented by: Sodium Chloride (Normal Saline) 1,000 mls @ 1,000 mls/hr IV ASDIRECTED ON LICENSE OF [facility] Last Admin: 06/27/20 05:26 Dose: 1,000 mls/hr Documented by: Lactated Ringer's (Ringers, Lactated) 1,000 mls @ 150 mls/hr IV ASDIRECTED ON LICENSE OF [facility] Last Admin: 06/27/20 07:38 Dose: 150 mls/hr Documented by: Levofloxacin/Dextrose 750 mg/ (Premix) 150 mls @ 100 mls/hr IV ONETIME ONE Stop: 06/27/20 09:24 Last Admin: 06/27/20 08:05 Dose: 100 mls/hr Documented by: Sodium Chloride (Normal Saline) 100 mls @ 60 mls/hr IV ASDIRECTED ON LICENSE OF [facility] Last Admin: 06/27/20 08:43 Dose: 60 mls/hr Documented by: Lactated Ringer's (Ringers, Lactated) 1,000 mls [facility] Last Admin: 06/27/20 20:18 Dose: 150 mls/hr Documented by: Lactated Ringer's (Ringers, Lactated) 500 mls @ 500 mls/hr IV .BOLUS ONE Stop: 06/27/20 15:16 Last Admin: 06/27/20 14:51 Dose: 500 mls/hr Documented by: Lactated Ringer's (Ringers, Lactated) Confirm Administered Dose 1,000 mls @ as directed .ROUTE .STK-MED ONE Stop: 06/27/20 19:51 Last Admin: 06/27/20 20:23 Dose: Not Given Documented by: Piperacillin Sod/Tazobactam (Sod 4.5 gm/ Sodium Chloride) 100 mls @ 25 mls/hr IV Q8H ON LICENSE OF [facility] Last Admin: 07/01/20 02:00 Dose: 25 mls/hr Documented by: Piperacillin Sod/Tazobactam (Sod 4.5 gm/ Sodium Chloride) 100 mls @ 200 mls/hr IV ONETIME ONE Stop: 06/28/20 02:03 Last Admin: 06/28/20 01:57 MST Dose: 200 mls/hr Documented by: Lactated Ringer's (Ringers, Lactated) 1,000 mls @ 150 mls/hr IV ASDIRECTED ON LICENSE OF [facility] Last Admin: 06/28/20 04:37 Dose: 150 mls/hr Documented by: Magnesium Sulfate 2 gm/ Premix 50 mls @ 25 mls/hr IV ONETIME ONE Stop: 06/28/20 22:32 Last Admin: 06/28/20 21:59 Dose: 25 mls/hr Documented by: Piperacillin Sod/Tazobactam (Sod 4.5 gm/ Sodium Chloride) 100 mls @ 25 mls/hr IV 0100,0900,1700 ON LICENSE OF [facility] Last Admin: 07/01/20 08:21 Dose: 25 mls/hr Documented by: Iopamidol (Isovue-370 (76%)) 100 ml IVPUSH ONETIME ONE Stop: 06/27/20 08:19 Last Admin: 06/27/20 08:43 Dose: 100 ml Documented by: Iopamidol (Isovue-370 (76%)) 125 ml IVPUSH ONETIME ONE Stop: 06/27/20 08:19 Last Admin: 06/27/20 08:55 Dose: Not Given Documented by: Magnesium Hydroxide (Milk Of Magnesia) 30 ml PO ONETIME ONE Stop: 06/29/20 06:31 Last Admin: 06/29/20 06:14 Dose: 30 ml Documented by: Metoprolol Tartrate (Lopressor) 25 mg PO BID ON LICENSE OF [facility] Last Admin: 06/27/20 15:29 Dose: Not Given Documented by: Ondansetron HCl (Zofran) 4 mg IVPUSH ONETIME ONE Stop: 06/27/20 05:12 Last Admin: 06/27/20 05:26 Dose: 4 mg Documented by: Potassium Chloride (Klor-Con M20) 40 meq PO Q4H ON LICENSE OF [facility] Stop: 06/29/20 20:01 Last Admin: 06/29/20 19:39 Dose: 40 meq Documented by: Sodium Chloride (Saline Flush) 10 ml FLUSH ONETIME ONE Stop: 06/27/20 08:19 Last Admin: 06/27/20 08:43 Dose: 10 ml Documented by: Tamsulosin HCl (Flomax) 0.4 mg PO ONETIME ONE Stop: 06/27/20 12:21 Last Admin: 06/27/20 15:07 Dose: Not Given Documented by: Tamsulosin HCl (Flomax) 0.4 mg PO ONETIME ONE Stop: 06/27/20 15:16 Last Admin: 06/27/20 15:15 Dose: 0.4 mg Documented by: Tamsulosin HCl (Flomax) 0.4 mg PO PCBREAKFAST ON LICENSE OF [facility] Last Admin: 06/30/20 09:19 Dose: 0.4 mg Documented by: - Exam Quality Assessment: DVT Prophylaxis (Lovenox). No: Supplemental Oxygen General: Alert, Oriented, Cooperative, No Acute Distress HEENT: Pupils Equal, Pupils Reactive, Mucous Membr. Moist/[place] Neck: Supple, Trachea Midline. No: Lymphadenopathy Lungs: Clear to Auscultation, Normal Respiratory Effort Cardiovascular: Regular Rate, Regular Rhythm, No Murmurs GI/Abdominal Exam: Normal Bowel Sounds, Soft, Non-Tender, No Distention (Male) Exam: Deferred Back Exam: Normal Inspection, Full Range of Motion Extremities: Normal Inspection, Normal Range of Motion, Non-Tender, No Pedal Edema, Normal Capillary Refill Peripheral Pulses: 2+: Radial (L), Radial (R), Dorsalis Pedis (L), Dorsalis Pedis (R) Skin: Warm, Dry, Intact Neurological: No New Focal Deficit Psy/Mental Status: Alert, Normal Affect, Normal Mood Sepsis Event Note - Evaluation Sepsis Screening Result: No Definite Risk - Focused Exam Vital Signs: Vital Signs Temp Temp Pulse Resp BP BP Pulse Ox 07/01/20 08:10 148/67 H 07/01/20 08:09 58 L 148/67 H 07/01/20 08:01 97.3 F 59 L 15 148/67 H 94 L 07/01/20 04:18 98.1 F 64 18 140/71 91 L 07/01/20 04:00 98.0 F 18 140/71 - Problem List & Annotations (1) Acute abdominal pain SNOMED Code(s): 648114448 Code(s): R10.9 - UNSPECIFIED ABDOMINAL PAIN Status: Acute Priority: High (2) BPH with urinary obstruction SNOMED Code(s): 504755715 Code(s): N40.1 - BENIGN PROSTATIC HYPERPLASIA WITH LOWER URINARY TRACT SYMP; N13.8 - OTHER OBSTRUCTIVE AND REFLUX UROPATHY Status: Acute Priority: High (3) Kidney stone on right side SNOMED Code(s): 23530136 Code(s): N20.0 - CALCULUS OF KIDNEY Status: Acute Priority: High (4) Lactic acidosis SNOMED Code(s): 63711167 Code(s): E87.2 - ACIDOSIS Status: Acute Priority: High (5) Urinary tract infection SNOMED Code(s): 10620395 Code(s): N39.0 - URINARY TRACT INFECTION, SITE NOT SPECIFIED Status: Acute Priority: High Qualifiers: Urinary tract infection type: site unspecified Hematuria presence: without hematuria Qualified Code(s): N39.0 - Urinary tract infection, site not specified - Problem List Review Problem List Initiated/Reviewed/Updated: Yes - Assessment Assessment:: 06/27/2020 * 84-year-old male with acute onset nausea, vomiting, and diffuse abdominal pain at [address] results consistent with right kidney stone measuring 4 x 3 x 6 mm. * Prostate cancer post seed implant * Samuel is a history of kidney stones. Approximately 6 years he had to get a stent after his ureter ruptured on the right side. Patient has a recurrence of his stone. This may be at scarring from the previous stone. It is small enough that he can likely pass spontaneously. Pain has been well controlled emergency department with Dilaudid. * UTI * Positive nitrites and urine WBCs. * Received Levaquin in the emergency department. * Urine and blood cultured. * This does not look like an infected stone. He has a normal white count with only a slight increase in his neutrophils likely secondary to stress, C-reactive protein, and is afebrile. * Lactic acidosis * Significant elevation in his lactic acid at 3.5 initially with a repeat of 2.6 after fluids. Unknown cause for this lactic acidosis at this time. CT did not appreciate any acute intra-abdominal process that would explain his lactic acidosis. * History of coronary artery disease, hypertension, [place], hyperlipidemia with a three-vessel CABG * Initial blood pressure was 185/91 likely secondary to pain. * BNP mildly elevated at 596 and likely not significant for this age * Hypomagnesemia * Magnesium 1.6 06/28/2020 * Bacteremia due to gram-negative rods * UTI -gram-negative rods * Symptomatic right proximal kidney stone measuring 4 x 3 x 6 mm * Right hydronephrosis * Hypomagnesemia * History of coronary artery disease, hypertension, GA, hyperlipidemia with a three-vessel CABG Patient's lactic acid came down to normal overnight. He is also much improved symptomatically and is afebrile. His white count continues to be normal and his absolute neutrophils are elevated at 5.64. Renal function continues to be normal. CRP did increase to 11.8. Procalcitonin from yesterday was negative at less than 0.05. Magnesium still low at 1.6. 06/29/20 * Increasing oxygen needs overnight. Now on 1 L per nasal cannula. States that he does get more short of breath when up independently in his room. * Complains of no bowel movement x3 days. * Blood culture and urine culture both growing gram-negative rods. Awaiting sensitivity report * Currently on Levaquin and Zosyn. * Echocardiogram today. Awaiting formal report. * Vital signs have been otherwise stable and he has been afebrile. * Potassium is low at 3.0 today that is down from 3.7 yesterday, magnesium up to 1.9 today, C-reactive protein down to 9.3. Still awaiting sensitivity report on urine and blood cultures. * Flomax for kidney stone 06/30/20 * Currently on room air * Did have a bowel movement yesterday. * Waiting blood culture and urine culture sensitivity report. * Continues on Levaquin and Zosyn. * Vital signs remained stable. * C-reactive protein down to 5.6. * Echocardiogram completed 06/29/2020: #1 left ventricular ejection fraction, by visual estimation, is 60 to 65%. #2 normal left ventricular systolic function. #3 mild proximal septal hypertrophy. #4 pseudonormal grade 2 pattern of left ventricular diastolic filling. #5 no aortic valve vegetation. #6 mild to moderate eccentric mitral valve regurgitation. #7 no mitral valve vegetation is visualized. #8 trace of aortic valve regurgitation. #9 mild tricuspid valve regurgitation. #10 no tricuspid valve vegetation. #11 the right ventricular systolic pressure is mildly elevated at 39.0 mmHg. #12 no regional wall motion abnormalities. #13 there is mild biatrial dilation. 07/01/20 * He is on Levaquin and Zosyn. * Vital signs remain stable and he has been afebrile the past 24 hours. * Labs reveal potassium 4.1, BUN 8, creatinine 0.9, GFR greater than 60, C- reactive protein 5.6. * Urine culture growing out Klebsiella which is susceptible to the Levaquin. Blood cultures are growing out gram-negative rods, Klebsiella pneumonia I, and Klebsiella pneumoniae #2. All are sensitive to Le * Denies having any flank pain - Plan Plan:: Assessment 06/27/2020 * 84-year-old male with acute onset nausea, vomiting, and diffuse abdominal pain at [address] results consistent with right kidney stone measuring 4 x 3 x 6 mm. * Prostate cancer post seed implant * Samuel is a history of kidney stones. Approximately 6 years he had to get a stent after his ureter ruptured on the right side. Patient has a recurrence of his stone. This may be at scarring from the previous stone. It is small enough that he can likely pass spontaneously. Pain has been well controlled emergency department with Dilaudid. * UTI * Positive nitrites and urine WBCs. * Received Levaquin in the emergency department. * Urine and blood cultured. * This does not look like an infected stone. He has a normal white count with only a slight increase in his neutrophils likely secondary to stress, C-reactive protein, and is afebrile. * Lactic acidosis * Significant elevation in his lactic acid at 3.5 initially with a repeat of 2.6 after fluids. Unknown cause for this lactic acidosis at this time. CT did not appreciate any acute intra-abdominal process that would explain his lactic acidosis. * History of coronary artery disease, hypertension, GA, hyperlipidemia with a three-vessel CABG * Initial blood pressure was 185/91 likely secondary to pain. * BNP mildly elevated at 596 and likely not significant for this age * Hypomagnesemia * Magnesium 1.6 06/28/2020 * Bacteremia due to gram-negative rods * UTI -gram-negative rods * Symptomatic right proximal kidney stone measuring 4 x 3 x 6 mm * Right hydronephrosis * Hypomagnesemia * History of coronary artery disease, hypertension, GA, hyperlipidemia with a three-vessel CABG Patient's lactic acid came down to normal overnight. He is also much improved symptomatically and is afebrile. His white count continues to be normal and his absolute neutrophils are elevated at 5.64. Renal function continues to be normal. CRP did increase to 11.8. Procalcitonin from yesterday was negative at less than 0.05. Magnesium still low at 1.6. Plan * Continue Levaquin 750 mg daily and await culture results. * Stop IV fluids * Replace magnesium. * Started Zosyn * Awaiting final urine and blood cultures * Follow vitals every 4 hours. * Currently on fentanyl for pain. * Dilaudid 0.5 mg every 2 hours as needed pain. * Strain urine * Echocardiogram in the morning * Check CBC, CMP, mag, phosphorus, CRP * VTE prophylaxis with Lovenox * CODE STATUS: DNR/DNI * Length of stay likely 2 to 3 days. 06/29/20 * Continue Levaquin and Zosyn until cultures return. * Replace potassium * Strain all urine * Await echocardiogram results * Continue to monitor vital signs * Recheck labs in the a.m. and correct any electrolyte abnormalities * Continue Lovenox for DVT prophylaxis * Milk of magnesia and senna given for constipation today * PT OT to evaluate and treat * Chest x-ray regarding increased oxygen needs reveals worsening atelectasis right lower lobe. No acute disease. * Start incentive spirometer every 1 hour while awake. 06/30/20 * Continue Levaquin and Zosyn. * Strain all urine * Continue to monitor vital signs. * Lovenox for DVT prophylaxis * Continue incentive spirometer every 1 hour while awake. * Length of stay is greater than 96 hours due to the treatment for bacteremia and waiting sensitivity report. 07/01/20 * Discontinue Zosyn. * Day 5 of p.o. Levaquin * Strain all urine * Continue to monitor vital signs * Will repeat lab work in the a.m. * Lovenox for DVT prophylaxis * Plan for discharge back to [facility] tomorrow on p.o. Levaquin. <Nereyda Cosme - Last Filed: 07/02/20 17:14> - Patient Data Vitals - Most Recent: Last Vital Signs Temp 36.7 C 07/02/20 07:52 Pulse 63 07/02/20 09:03 Resp 16 07/02/20 07:52 BP 149/66 H 07/02/20 09:04 Pulse Ox 94 L 07/02/20 07:52 I&O - Last 24 Hours: Intake & Output 07/02/20 07/02/20 07/02/20 06:59 14:59 22:59 Intake Total 600 210 Output Total 1300 Balance -700 210 Lab Results Last 24 Hours: Laboratory Results - last 24 hr 07/02/20 07/02/20 Range/Units 07:50 07:50 WBC 5.91 (4.23-9.07) K/mm3 RBC 3.83 L (4.63-6.08) M/mm3 Hgb 11.7 L (13.7-17.5) gm/dl Hct 35.4 L (40.1-51.0) % MCV 92.4 H (79.0-92.2) fl MCH 30.5 (25.7-32.2) pg MCHC 33.1 (32.2-35.5) g/dl RDW Std Deviation 41.9 (35.1-43.9) fL Plt Count 224 (163-337) K/mm3 MPV 9.5 (9.4-12.3) fl Neut % (Auto) 61.0 (34.0-67.9) % Lymph % (Auto) 21.7 L (21.8-53.1) % [place] % (Auto) 13.9 H (5.3-12.2) % Eos % (Auto) 2.7 (0.8-7.0) Baso % (Auto) 0.5 (0.1-1.2) % Neut # (Auto) 3.61 (1.78-5.38) K/mm3 Lymph # (Auto) 1.28 L (1.32-3.57) K/mm3 [place] # (Auto) 0.82 (0.30-0.82) K/mm3 Eos # (Auto) 0.16 (0.04-0.54) K/mm3 Baso # (Auto) 0.03 (0.01-0.08) K/mm3 Sodium 137 (136-145) mEq/L Potassium 3.4 L (3.5-5.1) mEq/L Chloride 102 (98-107) mEq/L Carbon Dioxide 25 (21-32) mEq/L Anion Gap 13.4 (5-15) BUN 13 (7-18) mg/dL Creatinine 0.9 (0.7-1.3) mg/dL Est Cr Clr Drug Dosing 59.95 mL/min Estimated GFR (MDRD) > 60 (>60) mL/min BUN/Creatinine Ratio 14.4 (14-18) Glucose 101 (83-115) mg/dL Calcium 8.6 (8.5-10.1) mg/dL Magnesium 2.0 (1.8-2.4) mg/dl Total Bilirubin 0.4 (0.2-1.0) mg/dL AST 30 (15-37) U/L ALT 25 (16-63) U/L Alkaline Phosphatase 54 (46-116) U/L C-Reactive Protein 2.8 H* (<1.0) mg/dL Total Protein 5.9 L (6.4-8.2) g/dl Albumin 2.7 L (3.4-5.0) g/dl Globulin 3.2 gm/dL Albumin/Globulin Ratio 0.8 L (1-2) Drew Results Last 24 Hours: Microbiology 06/27/20 05:10 Aerobic Blood Culture - Final Blood - Venous - Lab Draw Gram Negative Rods Anaerobic Blood Culture - Final Gram Negative Rods 06/27/20 05:10 Aerobic Blood Culture - Final Blood - Venous Klebsiella Pneumoniae Klebsiella Pneumoniae#2 Anaerobic Blood Culture - Final Gram Negative Rods Med Orders - Current: Current Medications Discontinued Medications Amlodipine Besylate (Norvasc) 5 mg PO DAILY ON LICENSE OF [facility] Last Admin: 06/27/20 15:30 Dose: Not Given Documented by: Amlodipine Besylate (Norvasc) 5 mg PO DAILY ON LICENSE [facility] Last Admin: 07/02/20 09:04 Dose: 5 mg Documented by: Aspirin (Halfprin) 81 mg PO DAILY ON LICENSE OF [facility] Last Admin: 07/02/20 09:04 Dose: 81 mg Documented by: Calcium Carbonate/Glycine (Tums) 500 mg PO QID PRN PRN Reason: upset stomach Docusate Sodium (Colace) 100 mg PO DAILY ON LICENSE OF [facility] Last Admin: 07/02/20 09:04 Dose: 100 mg Documented by: Enoxaparin Sodium (Lovenox) 40 mg SUBCUT DAILY ON LICENSE OF [facility] Last Admin: 07/02/20 09:03 Dose: 40 mg Documented by: Fentanyl (Duragesic) 50 mcg TRDERM Q72H ON LICENSE OF [facility] Last Admin: 06/27/20 15:29 Dose: Not Given Documented by: Fentanyl (Duragesic) 50 mcg TRDERM Q72H ON LICENSE OF [facility] Last Admin: 06/30/20 18:22 Dose: 50 mcg Documented by: Hydromorphone HCl (Dilaudid) 0.5 mg IVPUSH ONETIME ONE Stop: 06/27/20 05:12 Last Admin: 06/27/20 05:26 Dose: 0.5 mg Documented by: Hydromorphone HCl (Dilaudid) 0.5 mg IVPUSH ONETIME ONE Stop: 06/27/20 05:55 Last Admin: 06/27/20 06:03 Dose: 0.5 mg Documented by: Hydromorphone HCl (Dilaudid) 0.5 mg IVPUSH ONETIME ONE Stop: 06/27/20 07:39 Last Admin: 06/27/20 07:43 Dose: 0.5 mg Documented by: Hydromorphone HCl (Dilaudid) 0.5 mg IVPUSH Q2H PRN PRN Reason: Pain (severe 7-10) Sodium Chloride (Normal Saline) 1,000 mls @ 1,000 mls/[facility] Last Admin: 06/27/20 05:26 Dose: 1,000 mls/hr Documented by: Lactated Ringer's (Ringers, Lactated) 1,000 mls @ 150 [facility] Last Admin: 06/27/20 07:38 Dose: 150 mls/hr Documented by: Levofloxacin/Dextrose 750 mg/ (Premix) 150 mls @ 100 mls/hr IV ONETIME ONE Stop: 06/27/20 09:24 Last Admin: 06/27/20 08:05 Dose: 100 mls/hr Documented by: Sodium Chloride (Normal Saline) 100 mls @ 60 mls/hr [facility] Last Admin: 06/27/20 08:43 Dose: 60 mls/hr Documented by: Lactated Ringer's (Ringers, Lactated) 1,000 mls @ 150 mls/hr [facility] Last Admin: 06/27/20 20:18 Dose: 150 mls/hr Documented by: Lactated Ringer's (Ringers, Lactated) 500 mls @ 500 mls/hr IV .BOLUS ONE Stop: 06/27/20 15:16 Last Admin: 06/27/20 14:51 Dose: 500 mls/hr Documented by: Lactated Ringer's (Ringers, Lactated) Confirm Administered Dose 1,000 mls @ as directed .ROUTE .STK-MED ONE Stop: 06/27/20 19:51 Last Admin: 06/27/20 20:23 Dose: Not Given Documented by: Piperacillin Sod/Tazobactam (Sod 4.5 gm/ Sodium Chloride) 100 mls @ 25 mls/hr IV Q8H ON LICENSE OF [facility] Last Admin: 07/01/20 02:00 Dose: 25 mls/hr Documented by: Piperacillin Sod/Tazobactam (Sod 4.5 gm/ Sodium Chloride) 100 mls @ 200 mls/hr IV ONETIME ONE Stop: 06/28/20 02:03 Last Admin: 06/28/20 01:57 [facility] Dose: 200 mls/hr Documented by: Lactated Ringer's (Ringers, Lactated) 1,000 mls @ 150 mls/hr IV ASDIRECTED ON LICENSE OF [facility] Last Admin: 06/28/20 04:37 Dose: 150 mls/hr Documented by: Magnesium Sulfate 2 gm/ Premix 50 mls @ 25 mls/hr IV ONETIME ONE Stop: 06/28/20 22:32 Last Admin: 06/28/20 21:59 Dose: 25 mls/hr Documented by: Piperacillin Sod/Tazobactam (Sod 4.5 gm/ Sodium Chloride) 100 mls @ 25 mls/hr IV 0100,0900,1700 ON LICENSE OF [facility] Last Admin: 07/01/20 08:21 Dose: 25 mls/hr Documented by: Iopamidol (Isovue-370 (76%)) 100 ml IVPUSH ONETIME ONE Stop: 06/27/20 08:19 Last Admin: 06/27/20 08:43 Dose: 100 ml Documented by: Iopamidol (Isovue-370 (76%)) 125 ml IVPUSH ONETIME ONE Stop: 06/27/20 08:19 Last Admin: 06/27/20 08:55 Dose: Not Given Documented by: Levofloxacin (Levaquin) 750 mg PO DAILY ON LICENSE OF [facility] Last Admin: 07/02/20 09:03 Dose: 750 mg Documented by: Levothyroxine Sodium (Synthroid) 50 mcg PO ACBREAKFAST ON LICENSE OF [facility] Last Admin: 07/02/20 06:20 Dose: Not Given Documented by: Magnesium Hydroxide (Milk Of Magnesia) 30 ml PO ONETIME ONE Stop: 06/29/20 06:31 Last Admin: 06/29/20 06:14 Dose: 30 ml Documented by: Metoprolol Tartrate (Lopressor) 25 mg PO BID ON LICENSE OF [facility] Last Admin: 06/27/20 15:29 Dose: Not Given Documented by: Metoprolol Tartrate (Lopressor) 25 mg PO BID ON LICENSE OF [facility] Last Admin: 07/02/20 09:03 Dose: 25 mg Documented by: Miscellaneous Information (Remove Patch) 1 ea TRDERM Q72H ON LICENSE OF [facility] Last Admin: 06/30/20 18:22 Dose: 1 ea Documented by: Ondansetron HCl (Zofran) 4 mg IVPUSH ONETIME ONE Stop: 06/27/20 05:12 Last Admin: 06/27/20 05:26 Dose: 4 mg Documented by: Ondansetron HCl (Zofran) 4 mg IV Q4H PRN PRN Reason: Nausea/Vomiting Last Admin: 06/30/20 09:22 Dose: 4 mg Documented by: Oxycodone HCl (Oxycodone) 5 mg PO Q4H PRN PRN Reason: Pain (moderate 4-6) Last Admin: 07/02/20 04:18 Dose: 5 mg Documented by: Potassium Chloride (Klor-Con M20) 40 meq PO Q4H ON LICENSE OF [facility] Stop: 06/29/20 20:01 Last Admin: 06/29/20 19:39 Dose: 40 meq Documented by: Potassium Chloride (Klor-Con M20) 40 meq PO ONETIME ONE Stop: 07/02/20 10:01 Last Admin: 07/02/20 10:41 Dose: 40 meq Documented by: Rosuvastatin Calcium (Crestor) 5 mg PO BEDTIME ON LICENSE OF [facility] Last Admin: 07/01/20 22:27 Dose: 5 mg Documented by: Senna/Docusate Sodium (Senna Plus) 1 tab PO BID PRN PRN Reason: Constipation Last Admin: 06/29/20 09:36 Dose: 1 tab Documented by: Sodium Chloride (Saline Flush) 10 ml FLUSH ONETIME ONE Stop: 06/27/20 08:19 Last Admin: 06/27/20 08:43 Dose: 10 ml Documented by: Tamsulosin HCl (Flomax) 0.4 mg PO ONETIME ONE Stop: 06/27/20 12:21 Last Admin: 06/27/20 15:07 Dose: Not Given Documented by: Tamsulosin HCl (Flomax) 0.4 mg PO ONETIME ONE Stop: 06/27/20 15:16 Last Admin: 06/27/20 15:15 Dose: 0.4 mg Documented by: Tamsulosin HCl (Flomax) 0.4 mg PO PCBREAKFAST ON LICENSE OF [facility] Last Admin: 06/30/20 09:19 Dose: 0.4 mg Documented by: Tamsulosin HCl (Flomax) 0.4 mg PO DAILY KEVIN Last Admin: 07/02/20 09:04 Dose: 0.4 mg Documented by: Sepsis Event Note - Focused Exam Vital Signs: Vital Signs Temp Pulse Resp BP Pulse Ox 07/02/20 09:04 149/66 H 07/02/20 09:03 63 149/66 H 07/02/20 07:52 36.7 C 63 16 149/66 H 94 L - Plan Plan:: Agree with assessment and plan of care as amended.
[2020-07-01] MEDS: Rosuvastatin 10 MG Tab PO SCH (22:27)
[2020-07-02] MEDS: Levothyroxine 50 MCG Tab PO SCH ×2 (04:19→06:20)
[2020-07-02 08:46] VITALS: BP 149/66; PULSE 63
[2020-07-02] MEDS: Metoprolol Tartrate 25 MG Tab PO SCH (09:03)
[2020-07-02] MEDS: Levofloxacin 750 MG Tab PO SCH (09:03)
[2020-07-02] MEDS: Enoxaparin 40 MG/0.4 ML Syringe SUBCUT SCH (09:03)
[2020-07-02] MEDS: Tamsulosin 0.4 MG Cap.ER PO SCH (09:04)
[2020-07-02] MEDS: Docusate Sodium 100 MG Cap PO SCH (09:04)
[2020-07-02] MEDS: Aspirin 81 MG Tab.EC PO SCH (09:04)
[2020-07-02] MEDS: amLODIPine 5 MG Tab PO SCH (09:04)
[2020-07-02] MEDS ORDERED: Potassium Chloride 20 MEQ Tab.ER PO ONE (10:00)
--- NOTE | 2020-07-02 14:09 | PCM.DCSUM1 ---
<JefferySaran M - Last Filed: 07/02/20 14:11> Discharge Summary - Hospital Course HPI Initial Comments: Patient presented to the emergency department via EMS with abdominal pain. At 0100 today he had abdominal pain, nausea, and vomiting. He denied any diarrhea. Patient states pain was initially diffuse in the mid and lower abdomen but now is stating it is in the right mid abdomen. Patient states the pain was severe but now it is much improved after being in the emergency department and getting treatment. CT of the abdomen did show right proximal ureteral stone measuring 4 x 3 x 6 mm causing mild right-sided hydronephrosis and proximal hydroureter with mild delay of the right nephrogram. There is also asymmetric right perinephric stranding. Patient denied any fever, chills, cough, congestion. Initial labs show white count of 5.98 with mildly elevated neutrophils at 5.52 with no bands or toxic granules. C-reactive protein was 0.6. Lactic acid 3.5, magnesium 1.6, proBNP 596, repeat lactic acid of 2.6, UA showed positive nitrites with 10-20 WBCs and 30-40 RBCs. Patient was given 1 L fluid bolus and started on LR at 150 mL/h. He was also given 750 mg IV of Levaquin. Diagnosis: Stroke: No - Discharge Data Discharge Date: 07/02/20 (Admit date: 06/27/20) Discharge Disposition: Home, Self-Care 01 Condition: Good - Referral to Home Health Primary Care Physician: Brandon Rockwell MD - Discharge Diagnosis/Problem(s) (1) Acute abdominal pain SNOMED Code(s): 259129480 ICD Code: R10.9 - UNSPECIFIED ABDOMINAL PAIN Status: Acute Priority: High (2) BPH with urinary obstruction SNOMED Code(s): 063748304 ICD Code: N40.1 - BENIGN PROSTATIC HYPERPLASIA WITH LOWER URINARY TRACT SYMP; N13.8 - OTHER OBSTRUCTIVE AND REFLUX UROPATHY Status: Acute Priority: High (3) Kidney stone on right side SNOMED Code(s): 66318723 ICD Code: N20.0 - CALCULUS OF KIDNEY Status: Acute Priority: High (4) Lactic acidosis SNOMED Code(s): 86446320 ICD Code: E87.2 - ACIDOSIS Status: Acute Priority: High (5) Urinary tract infection SNOMED Code(s): 75173890 ICD Code: N39.0 - URINARY TRACT INFECTION, SITE NOT SPECIFIED Status: Acute Priority: High Qualifiers: Urinary tract infection type: site unspecified Hematuria presence: without hematuria Qualified Code(s): N39.0 - Urinary tract infection, site not specified - Patient Summary/Data Consults: Consultations 06/29/20 09:32 Consult to Case Management/Repair Supervisor [CONS] Routine OT Evaluation and Treatment [CONS] Routine PT Evaluation and Treatment [CONS] Routine Hospital Course: 06/27/2020 * 84-year-old male with acute onset nausea, vomiting, and diffuse abdominal pain at [address] results consistent with right kidney stone measuring 4 x 3 x 6 mm. * Prostate cancer post seed implant * Samuel is a history of kidney stones. Approximately 6 years he had to get a stent after his ureter ruptured on the right side. Patient has a recurrence of his stone. This may be at scarring from the previous stone. It is small enough that he can likely pass spontaneously. Pain has been well controlled emergency department with Dilaudid. * UTI * Positive nitrites and urine WBCs. * Received Levaquin in the emergency department. * Urine and blood cultured. * This does not look like an infected stone. He has a normal white count with only a slight increase in his neutrophils likely secondary to stress, C-reactive protein, and is afebrile. * Lactic acidosis * Significant elevation in his lactic acid at 3.5 initially with a repeat of 2.6 after fluids. Unknown cause for this lactic acidosis at this time. CT did not appreciate any acute intra-abdominal process that would explain his lactic acidosis. * History of coronary artery disease, hypertension, DC, hyperlipidemia with a three-vessel CABG * Initial blood pressure was 185/91 likely secondary to pain. * BNP mildly elevated at 596 and likely not significant for this age * Hypomagnesemia * Magnesium 1.6 06/28/2020 * Bacteremia due to gram-negative rods * UTI -gram-negative rods * Symptomatic right proximal kidney stone measuring 4 x 3 x 6 mm * Right hydronephrosis * Hypomagnesemia * History of coronary artery disease, hypertension, DC, hyperlipidemia with a three-vessel CABG Patient's lactic acid came down to normal overnight. He is also much improved symptomatically and is afebrile. His white count continues to be normal and his absolute neutrophils are elevated at 5.64. Renal function continues to be normal. CRP did increase to 11.8. Procalcitonin from yesterday was negative at less than 0.05. Magnesium still low at 1.6. 06/29/20 * Increasing oxygen needs overnight. Now on 1 L per nasal cannula. States that he does get more short of breath when up independently in his room. * Complains of no bowel movement x3 days. * Blood culture and urine culture both growing gram-negative rods. Awaiting sensitivity report * Currently on Levaquin and Zosyn. * Echocardiogram today. Awaiting formal report. * Vital signs have been otherwise stable and he has been afebrile. * Potassium is low at 3.0 today that is down from 3.7 yesterday, magnesium up to 1.9 today, C-reactive protein down to 9.3. Still awaiting sensitivity report on urine and blood cultures. * Flomax for kidney stone 06/30/20 * Currently on room air * Did have a bowel movement yesterday. * Waiting blood culture and urine culture sensitivity report. * Continues on Levaquin and Zosyn. * Vital signs remained stable. * C-reactive protein down to 5.6. * Echocardiogram completed 06/29/2020: #1 left ventricular ejection fraction, by visual estimation, is 60 to 65%. #2 normal left ventricular systolic function. #3 mild proximal septal hypertrophy. #4 pseudonormal grade 2 pattern of left ventricular diastolic filling. #5 no aortic valve vegetation. #6 mild to moderate eccentric mitral valve regurgitation. #7 no mitral valve vegetation is visualized. #8 trace of aortic valve regurgitation. #9 mild tricuspid valve regurgitation. #10 no tricuspid valve vegetation. #11 the right ventricular systolic pressure is mildly elevated at 39.0 mmHg. #12 no regional wall motion abnormalities. #13 there is mild biatrial dilation. 07/01/20 * He is on Levaquin and Zosyn. * Vital signs remain stable and he has been afebrile the past 24 hours. * Labs reveal potassium 4.1, BUN 8, creatinine 0.9, GFR greater than 60, C- reactive protein 5.6. * Urine culture growing out Klebsiella which is susceptible to the Levaquin. Blood cultures are growing out gram-negative rods, Klebsiella pneumonia I, and Klebsiella pneumoniae #2. All are sensitive to Le * Denies having any flank pain - Plan Plan:: Assessment 06/27/2020 * 84-year-old male with acute onset nausea, vomiting, and diffuse abdominal pain at [address] results consistent with right kidney stone measuring 4 x 3 x 6 mm. * Prostate cancer post seed implant * Samuel is a history of kidney stones. Approximately 6 years he had to get a stent after his ureter ruptured on the right side. Patient has a recurrence of his stone. This may be at scarring from the previous stone. It is small enough that he can likely pass spontaneously. Pain has been well controlled emergency department with Dilaudid. * UTI * Positive nitrites and urine WBCs. * Received Levaquin in the emergency department. * Urine and blood cultured. * This does not look like an infected stone. He has a normal white count with only a slight increase in his neutrophils likely secondary to stress, C-reactive protein, and is afebrile. * Lactic acidosis * Significant elevation in his lactic acid at 3.5 initially with a repeat of 2.6 after fluids. Unknown cause for this lactic acidosis at this time. CT did not appreciate any acute intra-abdominal process that would explain his lactic acidosis. * History of coronary artery disease, hypertension, DC, hyperlipidemia with a three-vessel CABG * Initial blood pressure was 185/91 likely secondary to pain. * BNP mildly elevated at 596 and likely not significant for this age * Hypomagnesemia * Magnesium 1.6 06/28/2020 * Bacteremia due to gram-negative rods * UTI -gram-negative rods * Symptomatic right proximal kidney stone measuring 4 x 3 x 6 mm * Right hydronephrosis * Hypomagnesemia * History of coronary artery disease, hypertension, DC, hyperlipidemia with a three-vessel CABG Patient's lactic acid came down to normal overnight. He is also much improved symptomatically and is afebrile. His white count continues to be normal and his absolute neutrophils are elevated at 5.64. Renal function continues to be normal. CRP did increase to 11.8. Procalcitonin from yesterday was negative at less than 0.05. Magnesium still low at 1.6. Plan * Continue Levaquin 750 mg daily and await culture results. * Stop IV fluids * Replace magnesium. * Started Zosyn * Awaiting final urine and blood cultures * Follow vitals every 4 hours. * Currently on fentanyl for pain. * Dilaudid 0.5 mg every 2 hours as needed pain. * Strain urine * Echocardiogram in the morning * Check CBC, CMP, mag, phosphorus, CRP * VTE prophylaxis with Lovenox * CODE STATUS: DNR/DNI * Length of stay likely 2 to 3 days. 06/29/20 * Continue Levaquin and Zosyn until cultures return. * Replace potassium * Strain all urine * Await echocardiogram results * Continue to monitor vital signs * Recheck labs in the a.m. and correct any electrolyte abnormalities * Continue Lovenox for DVT prophylaxis * Milk of magnesia and senna given for constipation today * PT OT to evaluate and treat * Chest x-ray regarding increased oxygen needs reveals worsening atelectasis right lower lobe. No acute disease. * Start incentive spirometer every 1 hour while awake. 06/30/20 * Continue Levaquin and Zosyn. * Strain all urine * Continue to monitor vital signs. * Lovenox for DVT prophylaxis * Continue incentive spirometer every 1 hour while awake. * Length of stay is greater than 96 hours due to the treatment for bacteremia and waiting sensitivity report. 07/01/20 * Discontinue Zosyn. * Day 5 of p.o. Levaquin * Strain all urine * Continue to monitor vital signs * Will repeat lab work in the a.m. * Lovenox for DVT prophylaxis * Plan for discharge back to [facility] tomorrow on p.o. Levaquin. 07/02/20 * Patient is ready for discharge to home today. * He will be sent home on 5 more days of p.o. Levaquin * Will also continue the Flomax 0.[address] Rockwell to follow-up regarding this. - Patient Instructions Diet: Usual Diet as Tolerated Activity: As Tolerated Notify Provider of: Fever, Increased Pain, Nausea and/or Vomiting Other/Special Instructions: Patient can be discharged to [facility]. Resume all home medications. Levaquin 750 mg p.o. daily x5 days. Flomax 0.4 mg daily. Will need to follow-up with Dr. Rockwell in 1 week regarding UTI and kidney stones. Follow-up with Dr. Rockwell at the clinic or return to the ER should your condition worsen or change, or should you develop a fever. - Discharge Plan *PRESCRIPTION DRUG MONITORING PROGRAM REVIEWED*: Not Applicable *COPY OF PRESCRIPTION DRUG MONITORING REPORT IN PATIENT LASHA: Not Applicable Prescriptions/Med Rec: Tamsulosin [Flomax] 0.4 mg PO DAILY #20 cap.er levoFLOXacin [Levaquin] 750 mg PO DAILY #5 tablet Home Medications: Home Meds Acetaminophen [Tylenol] 650 mg PO Q4HR PRN 08/16/15 [History] Aspirin/Calcium Carbonate/Mag [Aspirin Buffered 325 mg Tab] 325 mg PO DAILY 11/29/16 [History] Metoprolol Tartrate 25 mg PO BID 11/29/16 [History] Vit A/Vit C/Vit E/Zinc/Copper [Preservision] 1 tab PO DAILY 01/19/17 [History] amLODIPine [Norvasc] 5 mg PO DAILY 01/19/17 [History] Calcium Carb/Vit D3/Minerals [Calcium 600+D Plus Minerals] 1 each PO BID 10/08/18 [History] Levothyroxine [Synthroid] 50 mcg PO ACBREAKFAST 10/08/18 [History] Rosuvastatin [Crestor] 5 mg PO BEDTIME 11/05/18 [History] Calcium Carbonate [Tums] 200 mg PO QID PRN 06/27/20 [History] Docusate Sodium 100 mg PO DAILY 06/27/20 [History] Ginkgo Biloba [place] Extract [Ginkgo Biloba] 1 tab PO DAILY 06/27/20 [History] Multivit-Min/FA/Lycopen/Lutein [Certavite Sr-Antioxidant Tab] 1 tab PO DAILY 06/27/20 [History] fentaNYL [Duragesic] 50 mcg TRDERM Q72H 06/27/20 [History] Tamsulosin [Flomax] 0.4 mg PO DAILY #20 cap.er 07/02/20 [Rx] levoFLOXacin [Levaquin] 750 mg PO DAILY #5 tablet 07/02/20 [Rx] Oxygen Therapy Mode: Room Air Patient Handouts: Kidney Stones, Sepsis, Diagnosis, Adult, Dietary Guidelines to Help Prevent Kidney Stones, Bacteremia, Adult Referrals: Brandon Rockwell MD [Primary Care Provider] - 07/08/20 1:30 pm - Discharge Summary/Plan Comment DC Time >30 min.: No - General Info Date of Service: 07/02/20 Admission Dx/Problem (Free Text: Admission Diagnosis/Problem Admission Diagnosis/Problem Renal colic on right side Subjective Update: Feels well today. States he is ready for discharge back to [facility]. Functional Status: Reports: Pain Controlled, Tolerating Diet, Ambulating, Urinating, Incentive Spirometry - Review of Systems General: Reports: No Symptoms HEENT: Reports: No Symptoms Pulmonary: Reports: No Symptoms Cardiovascular: Reports: No Symptoms Gastrointestinal: Reports: No Symptoms Genitourinary: Reports: No Symptoms. Denies: Flank Pain Musculoskeletal: Reports: No Symptoms Skin: Reports: No Symptoms Neurological: Reports: No Symptoms Psychiatric: Reports: No Symptoms - Patient Data Vitals - Most Recent: Last Vital Signs Temp 98.1 F 07/02/20 07:52 Pulse 63 07/02/20 09:03 Resp 16 07/02/20 07:52 BP 149/66 H 07/02/20 09:04 Pulse Ox 94 L 07/02/20 07:52 Weight - Most Recent: 71.94 kg I&O - Last 24 hours: Intake & Output 07/01/20 07/02/20 07/02/20 22:59 06:59 14:59 Intake Total 1040 600 210 Output Total 200 1300 Balance 840 -700 210 Lab Results - Last 24 hrs: Laboratory Results - last 24 hr 07/02/20 07/02/20 Range/Units 07:50 07:50 WBC 5.91 (4.23-9.07) K/mm3 RBC 3.83 L (4.63-6.08) M/mm3 Hgb 11.7 L (13.7-17.5) gm/dl Hct 35.4 L (40.1-51.0) % MCV 92.4 H (79.0-92.2) fl MCH 30.5 (25.7-32.2) pg MCHC 33.1 (32.2-35.5) g/dl RDW Std Deviation 41.9 (35.1-43.9) fL Plt Count 224 (163-337) K/mm3 MPV 9.5 (9.4-12.3) fl Neut % (Auto) 61.0 (34.0-67.9) % Lymph % (Auto) 21.7 L (21.8-53.1) % [place] % (Auto) 13.9 H (5.3-12.2) % Eos % (Auto) 2.7 (0.8-7.0) Baso % (Auto) 0.5 (0.1-1.2) % Neut # (Auto) 3.61 (1.78-5.38) K/mm3 Lymph # (Auto) 1.28 L (1.32-3.57) K/mm3 [place] # (Auto) 0.82 (0.30-0.82) K/mm3 Eos # (Auto) 0.16 (0.04-0.54) K/mm3 Baso # (Auto) 0.03 (0.01-0.08) K/mm3 Sodium 137 (136-145) mEq/L Potassium 3.4 L (3.5-5.1) mEq/L Chloride 102 (98-107) mEq/L Carbon Dioxide 25 (21-32) mEq/L Anion Gap 13.4 (5-15) BUN 13 (7-18) mg/dL Creatinine 0.9 (0.7-1.3) mg/dL Est Cr Clr Drug Dosing 59.95 mL/min Estimated GFR (MDRD) > 60 (>60) mL/min BUN/Creatinine Ratio 14.4 (14-18) Glucose 101 (83-115) mg/dL Calcium 8.6 (8.5-10.1) mg/dL Magnesium 2.0 (1.8-2.4) mg/dl Total Bilirubin 0.4 (0.2-1.0) mg/dL AST 30 (15-37) U/L ALT 25 (16-63) U/L Alkaline Phosphatase 54 (46-116) U/L C-Reactive Protein 2.8 H* (<1.0) mg/dL Total Protein 5.9 L (6.4-8.2) g/dl Albumin 2.7 L (3.4-5.0) g/dl Globulin 3.2 gm/dL Albumin/Globulin Ratio 0.8 L (1-2) NINA Results - Last 24 hrs: Microbiology 06/27/20 05:10 Aerobic Blood Culture - Final Blood - Venous - Lab Draw Gram Negative Rods Anaerobic Blood Culture - Final Gram Negative Rods 06/27/20 05:10 Aerobic Blood Culture - Final Blood - Venous Klebsiella Pneumoniae Klebsiella Pneumoniae#2 Anaerobic Blood Culture - Final Gram Negative Rods Med Orders - Current: Current Medications Amlodipine Besylate (Norvasc) 5 mg PO DAILY [facility] Last Admin: 07/02/20 09:04 Dose: 5 mg Documented by: Aspirin (Halfprin) 81 mg PO DAILY [facility] Last Admin: 07/02/20 09:04 Dose: 81 mg Documented by: Calcium Carbonate/Glycine (Tums) 500 mg PO QID PRN PRN Reason: upset stomach Docusate Sodium (Colace) 100 mg PO DAILY [facility] Last Admin: 07/02/20 09:04 Dose: 100 mg Documented by: Enoxaparin Sodium (Lovenox) 40 mg SUBCUT DAILY [facility] Last Admin: 07/02/20 09:03 Dose: 40 mg Documented by: Fentanyl (Duragesic) 50 mcg TRDERM Q72H [facility] Last Admin: 06/30/20 18:22 Dose: 50 mcg Documented by: Hydromorphone HCl (Dilaudid) 0.5 mg IVPUSH Q2H PRN PRN Reason: Pain (severe 7-10) Levofloxacin (Levaquin) 750 mg PO DAILY [facility] Last Admin: 07/02/20 09:03 Dose: 750 mg Documented by: Levothyroxine Sodium (Synthroid) 50 mcg PO ACBREAKFAST [facility] Last Admin: 07/02/20 06:20 Dose: Not Given Documented by: Metoprolol Tartrate (Lopressor) 25 mg PO BID [facility] Last Admin: 07/02/20 09:03 Dose: 25 mg Documented by: Miscellaneous Information (Remove Patch) 1 ea TRDERM Q72H [facility] Last Admin: 06/30/20 18:22 Dose: 1 ea Documented by: Ondansetron HCl (Zofran) 4 mg IV Q4H PRN PRN Reason: Nausea/Vomiting Last Admin: 06/30/20 09:22 Dose: 4 mg Documented by: Oxycodone HCl (Oxycodone) 5 mg PO Q4H PRN PRN Reason: Pain (moderate 4-6) Last Admin: 07/02/20 04:18 Dose: 5 mg Documented by: Rosuvastatin Calcium (Crestor) 5 mg PO BEDTIME [facility] Last Admin: 07/01/20 22:27 Dose: 5 mg Documented by: Senna/Docusate Sodium (Senna Plus) 1 tab PO BID PRN PRN Reason: Constipation Last Admin: 06/29/20 09:36 Dose: 1 tab Documented by: Tamsulosin HCl (Flomax) 0.4 mg PO DAILY [facility] Last Admin: 07/02/20 09:04 Dose: 0.4 mg Documented by: Discontinued Medications Amlodipine Besylate (Norvasc) 5 mg PO DAILY [facility] Last Admin: 06/27/20 15:30 Dose: Not Given Documented by: Fentanyl (Duragesic) 50 mcg TRDERM Q72H [facility] Last Admin: 06/27/20 15:29 Dose: Not Given Documented by: Hydromorphone HCl (Dilaudid) 0.5 mg IVPUSH ONETIME ONE Stop: 06/27/20 05:12 Last Admin: 06/27/20 05:26 Dose: 0.5 mg Documented by: Hydromorphone HCl (Dilaudid) 0.5 mg IVPUSH ONETIME ONE Stop: 06/27/20 05:55 Last Admin: 06/27/20 06:03 Dose: 0.5 mg Documented by: Hydromorphone HCl (Dilaudid) 0.5 mg IVPUSH ONETIME ONE Stop: 06/27/20 07:39 Last Admin: 06/27/20 07:43 Dose: 0.5 mg Documented by: Sodium Chloride (Normal Saline) 1,000 mls @ 1,000 mls/hr IV ASDIRECTED [facility] Last Admin: 06/27/20 05:26 Dose: 1,000 mls/hr Documented by: Lactated Ringer's (Ringers, Lactated) 1,000 mls @ 150 mls[facility] Last Admin: 06/27/20 07:38 Dose: 150 mls/hr Documented by: Levofloxacin/Dextrose 750 mg/ (Premix) 150 mls @ 100 mls/hr IV ONETIME ONE Stop: 06/27/20 09:24 Last Admin: 06/27/20 08:05 Dose: 100 mls/hr Documented by: Sodium Chloride (Normal Saline) 100 mls @ 60 mls/hr IV ASDIRECTED [facility] Last Admin: 06/27/20 08:43 Dose: 60 mls/hr Documented by: Lactated Ringer's (Ringers, Lactated) 1,000 mls @ 150 mls/hr [facility] Last Admin: 06/27/20 20:18 Dose: 150 mls/hr Documented by: Lactated Ringer's (Ringers, Lactated) 500 mls @ 500 mls/hr IV .BOLUS ONE Stop: 06/27/20 15:16 Last Admin: 06/27/20 14:51 Dose: 500 mls/hr Documented by: Lactated Ringer's (Ringers, Lactated) Confirm Administered Dose 1,000 mls @ as directed .ROUTE .STK-MED ONE Stop: 06/27/20 19:51 Last Admin: 06/27/20 20:23 Dose: Not Given Documented by: Piperacillin Sod/Tazobactam (Sod 4.5 gm/ Sodium Chloride) 100 mls @ 25 mls/hr IV Q8H [facility] Last Admin: 07/01/20 02:00 Dose: 25 mls/hr Documented by: Piperacillin Sod/Tazobactam (Sod 4.5 gm/ Sodium Chloride) 100 mls @ 200 mls/hr IV ONETIME ONE Stop: 06/28/20 02:03 Last Admin: 06/28/20 01:57 [facility] Dose: 200 mls/hr Documented by: Lactated Ringer's (Ringers, Lactated) 1,000 mls @ 150 mls/hr IV ASDIRECTED [facility] Last Admin: 06/28/20 04:37 Dose: 150 mls/hr Documented by: Magnesium Sulfate 2 gm/ Premix 50 mls @ 25 mls/hr IV ONETIME ONE Stop: 06/28/20 22:32 Last Admin: 06/28/20 21:59 Dose: 25 mls/hr Documented by: Piperacillin Sod/Tazobactam (Sod 4.5 gm/ Sodium Chloride) 100 mls @ 25 mls/hr IV 0100,0900,1700 [facility] Last Admin: 07/01/20 08:21 Dose: 25 mls/hr Documented by: Iopamidol (Isovue-370 (76%)) 100 ml IVPUSH ONETIME ONE Stop: 06/27/20 08:19 Last Admin: 06/27/20 08:43 Dose: 100 ml Documented by: Iopamidol (Isovue-370 (76%)) 125 ml IVPUSH ONETIME ONE Stop: 06/27/20 08:19 Last Admin: 06/27/20 08:55 Dose: Not Given Documented by: Magnesium Hydroxide (Milk Of Magnesia) 30 ml PO ONETIME ONE Stop: 06/29/20 06:31 Last Admin: 06/29/20 06:14 Dose: 30 ml Documented by: Metoprolol Tartrate (Lopressor) 25 mg PO BID [facility] Last Admin: 06/27/20 15:29 Dose: Not Given Documented by: Ondansetron HCl (Zofran) 4 mg IVPUSH ONETIME ONE Stop: 06/27/20 05:12 Last Admin: 06/27/20 05:26 Dose: 4 mg Documented by: Potassium Chloride (Klor-Con M20) 40 meq PO Q4H [facility] Stop: 06/29/20 20:01 Last Admin: 06/29/20 19:39 Dose: 40 meq Documented by: Potassium Chloride (Klor-Con M20) 40 meq PO ONETIME ONE Stop: 07/02/20 10:01 Last Admin: 07/02/20 10:41 Dose: 40 meq Documented by: Sodium Chloride (Saline Flush) 10 ml FLUSH ONETIME ONE Stop: 06/27/20 08:19 Last Admin: 06/27/20 08:43 Dose: 10 ml Documented by: Tamsulosin HCl (Flomax) 0.4 mg PO ONETIME ONE Stop: 06/27/20 12:21 Last Admin: 06/27/20 15:07 Dose: Not Given Documented by: Tamsulosin HCl (Flomax) 0.4 mg PO ONETIME ONE Stop: 06/27/20 15:16 Last Admin: 06/27/20 15:15 Dose: 0.4 mg Documented by: Tamsulosin HCl (Flomax) 0.4 mg PO PCBREAKFAST [facility] Last Admin: 06/30/20 09:19 Dose: 0.4 mg Documented by: - Exam Quality Assessment: Reports: DVT Prophylaxis (Lovenox). Denies: Supplemental Ox ygen General: Reports: Alert, Oriented, Cooperative, No Acute Distress HEENT: Reports: Pupils Equal, Pupils Reactive, Mucous Membr. Moist/[place]ck: Reports: Supple, Trachea Midline. Denies: Lymphadenopathy Lungs: Reports: Clear to Auscultation, Normal Respiratory Effort Cardiovascular: Reports: Regular Rate, Regular Rhythm, No Murmurs GI/Abdominal Exam: Normal Bowel Sounds, Soft, Non-Tender, No Distention (Male) Exam: Deferred Rectal (Males) Exam: Deferred Back Exam: Reports: Normal Inspection, Full Range of Motion Extremities: Normal Inspection, Normal Range of Motion, Non-Tender, No Pedal Edema, Normal Capillary Refill Skin: Reports: Warm, Dry, Intact Neurological: Reports: No New Focal Deficit Psy/Mental Status: Reports: Alert, Normal Affect, Normal Mood <Nereyda Cosme - Last Filed: 07/02/20 16:56> Discharge Summary - Referral to Home Health Primary Care Physician: Brandon Rockwell MD - Patient Summary/Data Consults: Consultations 06/29/20 09:32 Consult to Case Management/Repair Supervisor [CONS] Routine OT Evaluation and Treatment [CONS] Routine PT Evaluation and Treatment [CONS] Routine - Patient Data Vitals - Most Recent: Last Vital Signs Temp 36.7 C 07/02/20 07:52 Pulse 63 07/02/20 09:03 Resp 16 07/02/20 07:52 BP 149/66 H 07/02/20 09:04 Pulse Ox 94 L 07/02/20 07:52 I&O - Last 24 hours: Intake & Output 07/02/20 07/02/20 07/02/20 06:59 14:59 22:59 Intake Total 600 210 Output Total 1300 Balance -700 210 Lab Results - Last 24 hrs: Laboratory Results - last 24 hr 07/02/20 07/02/20 Range/Units 07:50 07:50 WBC 5.91 (4.23-9.07) K/mm3 RBC 3.83 L (4.63-6.08) M/mm3 Hgb 11.7 L (13.7-17.5) gm/dl Hct 35.4 L (40.1-51.0) % MCV 92.4 H (79.0-92.2) fl MCH 30.5 (25.7-32.2) pg MCHC 33.1 (32.2-35.5) g/dl RDW Std Deviation 41.9 (35.1-43.9) fL Plt Count 224 (163-337) K/mm3 MPV 9.5 (9.4-12.3) fl Neut % (Auto) 61.0 (34.0-67.9) % Lymph % (Auto) 21.7 L (21.8-53.1) % [place] % (Auto) 13.9 H (5.3-12.2) % Eos % (Auto) 2.7 (0.8-7.0) Baso % (Auto) 0.5 (0.1-1.2) % Neut # (Auto) 3.61 (1.78-5.38) K/mm3 Lymph # (Auto) 1.28 L (1.32-3.57) K/mm3 [place] # (Auto) 0.82 (0.30-0.82) K/mm3 Eos # (Auto) 0.16 (0.04-0.54) K/mm3 Baso # (Auto) 0.03 (0.01-0.08) K/mm3 Sodium 137 (136-145) mEq/L Potassium 3.4 L (3.5-5.1) mEq/L Chloride 102 (98-107) mEq/L Carbon Dioxide 25 (21-32) mEq/L Anion Gap 13.4 (5-15) BUN 13 (7-18) mg/dL Creatinine 0.9 (0.7-1.3) mg/dL Est Cr Clr Drug Dosing 59.95 mL/min Estimated GFR (MDRD) > 60 (>60) mL/min BUN/Creatinine Ratio 14.4 (14-18) Glucose 101 (83-115) mg/dL Calcium 8.6 (8.5-10.1) mg/dL Magnesium 2.0 (1.8-2.4) mg/dl Total Bilirubin 0.4 (0.2-1.0) mg/dL AST 30 (15-37) U/L ALT 25 (16-63) U/L Alkaline Phosphatase 54 (46-116) U/L C-Reactive Protein 2.8 H* (<1.0) mg/dL Total Protein 5.9 L (6.4-8.2) g/dl Albumin 2.7 L (3.4-5.0) g/dl Globulin 3.2 gm/dL Albumin/Globulin Ratio 0.8 L (1-2) [facility] Results - Last 24 hrs: Microbiology 06/27/20 05:10 Aerobic Blood Culture - Final Blood - Venous - Lab Draw Gram Negative Rods Anaerobic Blood Culture - Final Gram Negative Rods 06/27/20 05:10 Aerobic Blood Culture - Final Blood - Venous Klebsiella Pneumoniae Klebsiella Pneumoniae#2 Anaerobic Blood Culture - Final Gram Negative Rods Med Orders - Current: Current Medications Discontinued Medications Amlodipine Besylate (Norvasc) 5 mg PO DAILY [facility] Last Admin: 06/27/20 15:30 Dose: Not Given Documented by: Amlodipine Besylate (Norvasc) 5 mg PO DAILY [facility] Last Admin: 07/02/20 09:04 Dose: 5 mg Documented by: Aspirin (Halfprin) 81 mg PO DAILY [facility] Last Admin: 07/02/20 09:04 Dose: 81 mg Documented by: Calcium Carbonate/Glycine (Tums) 500 mg PO QID PRN PRN Reason: upset stomach Docusate Sodium (Colace) 100 mg PO DAILY [facility] Last Admin: 07/02/20 09:04 Dose: 100 mg Documented by: Enoxaparin Sodium (Lovenox) 40 mg SUBCUT DAILY [facility] Last Admin: 07/02/20 09:03 Dose: 40 mg Documented by: Fentanyl (Duragesic) 50 mcg TRDERM Q72H [facility] Last Admin: 06/27/20 15:29 Dose: Not Given Documented by: Fentanyl (Duragesic) 50 mcg TRDERM Q72H [facility] Last Admin: 06/30/20 18:22 Dose: 50 mcg Documented by: Hydromorphone HCl (Dilaudid) 0.5 mg IVPUSH ONETIME ONE Stop: 06/27/20 05:12 Last Admin: 06/27/20 05:26 Dose: 0.5 mg Documented by: Hydromorphone HCl (Dilaudid) 0.5 mg IVPUSH ONETIME ONE Stop: 06/27/20 05:55 Last Admin: 06/27/20 06:03 Dose: 0.5 mg Documented by: Hydromorphone HCl (Dilaudid) 0.5 mg IVPUSH ONETIME ONE Stop: 06/27/20 07:39 Last Admin: 06/27/20 07:43 Dose: 0.5 mg Documented by: Hydromorphone HCl (Dilaudid) 0.5 mg IVPUSH Q2H PRN PRN Reason: Pain (severe 7-10) Sodium Chloride (Normal Saline) 1,000 mls @ 1,000 mls/hr IV ASDIRECTED [facility] Last Admin: 06/27/20 05:26 Dose: 1,000 mls/hr Documented by: Lactated Ringer's (Ringers, Lactated) 1,000 mls @ 150 mls/hr IV ASDIRECTED [facility] Last Admin: 06/27/20 07:38 Dose: 150 mls/hr Documented by: Levofloxacin/Dextrose 750 mg/ (Premix) 150 mls @ 100 mls/hr IV ONETIME ONE Stop: 06/27/20 09:24 Last Admin: 06/27/20 08:05 Dose: 100 mls/hr Documented by: Sodium Chloride (Normal Saline) 100 mls @ 60 mls/hr IV ASDIRECTED [facility] Last Admin: 06/27/20 08:43 Dose: 60 mls/hr Documented by: Lactated Ringer's (Ringers, Lactated) 1,000 mls @ 150 mls/hr IV ASDIRECTED [facility] Last Admin: 06/27/20 20:18 Dose: 150 mls/hr Documented by: Lactated Ringer's (Ringers, Lactated) 500 mls @ 500 mls/hr IV .BOLUS ONE Stop: 06/27/20 15:16 Last Admin: 06/27/20 14:51 Dose: 500 mls/hr Documented by: Lactated Ringer's (Ringers, Lactated) Confirm Administered Dose 1,000 mls @ as directed .ROUTE .STK-MED ONE Stop: 06/27/20 19:51 Last Admin: 06/27/20 20:23 Dose: Not Given Documented by: Piperacillin Sod/Tazobactam (Sod 4.5 gm/ Sodium Chloride) 100 mls @ 25 mls/hr IV Q8H [facility] Last Admin: 07/01/20 02:00 Dose: 25 mls/hr Documented by: Piperacillin Sod/Tazobactam (Sod 4.5 gm/ Sodium Chloride) 100 mls @ 200 mls/hr IV ONETIME ONE Stop: 06/28/20 02:03 Last Admin: 06/28/20 01:57 [facility] Dose: 200 mls/hr Documented by: Lactated Ringer's (Ringers, Lactated) 1,000 mls @ 150 mls/hr IV ASDIRECTED [facility] Last Admin: 06/28/20 04:37 Dose: 150 mls/hr Documented by: Magnesium Sulfate 2 gm/ Premix 50 mls @ 25 mls/hr IV ONETIME ONE Stop: 06/28/20 22:32 Last Admin: 06/28/20 21:59 Dose: 25 mls/hr Documented by: Piperacillin Sod/Tazobactam (Sod 4.5 gm/ Sodium Chloride) 100 mls @ 25 mls/hr IV 0100,0900,1700 [facility] Last Admin: 07/01/20 08:21 Dose: 25 mls/hr Documented by: Iopamidol (Isovue-370 (76%)) 100 ml IVPUSH ONETIME ONE Stop: 06/27/20 08:19 Last Admin: 06/27/20 08:43 Dose: 100 ml Documented by: Iopamidol (Isovue-370 (76%)) 125 ml IVPUSH ONETIME ONE Stop: 06/27/20 08:19 Last Admin: 06/27/20 08:55 Dose: Not Given Documented by: Levofloxacin (Levaquin) 750 mg PO DAILY [facility] Last Admin: 07/02/20 09:03 Dose: 750 mg Documented by: Levothyroxine Sodium (Synthroid) 50 mcg PO ACBREAKFAST [facility] Last Admin: 07/02/20 06:20 Dose: Not Given Documented by: Magnesium Hydroxide (Milk Of Magnesia) 30 ml PO ONETIME ONE Stop: 06/29/20 06:31 Last Admin: 06/29/20 06:14 Dose: 30 ml Documented by: Metoprolol Tartrate (Lopressor) 25 mg PO BID [facility] Last Admin: 06/27/20 15:29 Dose: Not Given Documented by: Metoprolol Tartrate (Lopressor) 25 mg PO BID [facility] Last Admin: 07/02/20 09:03 Dose: 25 mg Documented by: Miscellaneous Information (Remove Patch) 1 ea TRDERM Q72H [facility] Last Admin: 06/30/20 18:22 Dose: 1 ea Documented by: Ondansetron HCl (Zofran) 4 mg IVPUSH ONETIME ONE Stop: 06/27/20 05:12 Last Admin: 06/27/20 05:26 Dose: 4 mg Documented by: Ondansetron HCl (Zofran) 4 mg IV Q4H PRN PRN Reason: Nausea/Vomiting Last Admin: 06/30/20 09:22 Dose: 4 mg Documented by: Oxycodone HCl (Oxycodone) 5 mg PO Q4H PRN PRN Reason: Pain (moderate 4-6) Last Admin: 07/02/20 04:18 Dose: 5 mg Documented by: Potassium Chloride (Klor-Con M20) 40 meq PO Q4H [facility] Stop: 06/29/20 20:01 Last Admin: 06/29/20 19:39 Dose: 40 meq Documented by: Potassium Chloride (Klor-Con M20) 40 meq PO ONETIME ONE Stop: 07/02/20 10:01 Last Admin: 07/02/20 10:41 Dose: 40 meq Documented by: Rosuvastatin Calcium (Crestor) 5 mg PO BEDTIME [facility] Last Admin: 07/01/20 22:27 Dose: 5 mg Documented by: Senna/Docusate Sodium (Senna Plus) 1 tab PO BID PRN PRN Reason: Constipation Last Admin: 06/29/20 09:36 Dose: 1 tab Documented by: Sodium Chloride (Saline Flush) 10 ml FLUSH ONETIME ONE Stop: 06/27/20 08:19 Last Admin: 06/27/20 08:43 Dose: 10 ml Documented by: Tamsulosin HCl (Flomax) 0.4 mg PO ONETIME ONE Stop: 06/27/20 12:21 Last Admin: 06/27/20 15:07 Dose: Not Given Documented by: Tamsulosin HCl (Flomax) 0.4 mg PO ONETIME ONE Stop: 06/27/20 15:16 Last Admin: 06/27/20 15:15 Dose: 0.4 mg Documented by: Tamsulosin HCl (Flomax) 0.4 mg PO PCBREAKFAST [facility] Last Admin: 06/30/20 09:19 Dose: 0.4 mg Documented by: Tamsulosin HCl (Flomax) 0.4 mg PO DAILY [facility] Last Admin: 07/02/20 09:04 Dose: 0.4 mg Documented by:
== END 2020-07-02 13:20 | disposition home or self-care (01) | DRG 690 ==
LOC: JD.ED 05:02 → JD.MS 09:31
PROVIDERS: ADMIT Family Medicine; ATTEND Family Medicine
DX: N39.0 Urinary tract infection, site not specified (principal); H91.90 Unspecified hearing loss, unspecified ear; N13.6 Pyonephrosis; E87.2 Acidosis; N13.8 Other obstructive and reflux uropathy; R78.81 Bacteremia; Z66 Do not resuscitate; I25.10 Atherosclerotic heart disease of native coronary artery without angina pectoris; Z87.442 Personal history of urinary calculi; E78.5 Hyperlipidemia, unspecified; C79.51 Secondary malignant neoplasm of bone; Z20.828 Contact with and (suspected) exposure to other viral communicable diseases; Z98.890 Other specified postprocedural states; E83.42 Hypomagnesemia; N40.1 Benign prostatic hyperplasia with lower urinary tract symptoms; C61 Malignant neoplasm of prostate; B96.1 Klebsiella pneumoniae [K. pneumoniae] as the cause of diseases classified elsewhere; H54.7 Unspecified visual loss; E78.00 Pure hypercholesterolemia, unspecified; I10 Essential (primary) hypertension; E03.9 Hypothyroidism, unspecified; I25.2 Old myocardial infarction; Z95.1 Presence of aortocoronary bypass graft; Z87.891 Personal history of nicotine dependence; Z79.82 Long term (current) use of aspirin; Z79.890 Hormone replacement therapy; Z79.899 Other long term (current) drug therapy; Z90.49 Acquired absence of other specified parts of digestive tract
CPT/HCPCS: 36415; 71045; 71045-26; 71046; 71046-26; 74018; 74018-26; 74177; 74177-26; 80053; 81001; 83605; 83690; 83735; 83880; 84100; 84145; 85025; 86140; 87040; 87077; 87086; 87088; 87184; 87186; 87641; 93005; 93010; 93306; 96365; 96375; 96376; 97162-GP; 97165-GO; 97530-GO; 97535-GO; 99285; 99285-25; A9270-GY; J1170; J1650; J1956; J2405; J2543; J3475; J7030; J7050; J7120; Q9967; U0002

== ENCOUNTER 2021-03-24 09:12 | Emergency (ER) | payer MEDICARE, OTHER ==
[2021-03-24] MEDS ORDERED: HYDROmorphone 0.5 MG/0.5 ML Syringe IVPUSH ONE (09:48)
[2021-03-24] MEDS ORDERED: Metoclopramide 10 MG/2 ML SDV IVPUSH ONE (09:48)
--- NOTE | 2021-03-24 09:51 | EDM.PDOC ---
ED HPI GENERAL MEDICAL PROBLEM - General Chief Complaint: Abdominal Pain Stated Complaint: constipation abdominal pain Time Seen by Provider: 03/24/21 09:40 Source of Information: Reports: Patient History Limitations: Reports: No Limitations - History of Present Illness INITIAL COMMENTS - FREE TEXT/NARRATIVE: 85-year-old male arrives in the ED per private vehicle complaining primarily of rectal pressure discomfort and pain. He states he did not have a Ottoniel for 2 days and did take a Colace tablet this morning. He then had the urge to have a bowel movement but felt a lot of pain discomfort and had to bear down very hard to get a little stool out. He uses his finger to help facilitate passage of hard stool but then felt that he lost control of his bladder and bowel for period of time. Still having diffuse lower abdominal pain and discomfort. No nausea or vomiting. He has not had any breakfast yet today. History suggest he is having problems with chronic constipation issues. He has no history of urinary retention. Onset: Today, Sudden Onset Date: 03/24/21 Onset Time: 08:25 Duration: Hour(s):, Constant, Other Location: Reports: Other (Toe pain pressure discomfort) Quality: Reports: Other (Ductal pressure discomfort) Severity: Moderate (feels the need to defecate and void but unable to do so) Improves with: Reports: None Worsens with: Reports: None Context: Denies: Activity, Exercise, Lifting, Sick Contact, Trauma, Other Associated Symptoms: Reports: Loss of Appetite, Other (Fuhs lower abdominal pain). 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 He is asking for pain medication however.) Lower Abdomen Pain Score (Numeric/FACES): 8 - Related Data Allergies Allergy/AdvReac Type Severity Reaction Status Date / Time No Known Allergies Allergy Verified 03/24/21 10:19 Home Meds: Home Meds Acetaminophen [Tylenol] 650 mg PO Q4HR PRN 08/16/15 [History] Vit A/Vit C/Vit E/Zinc/Copper [Preservision] 1 tab PO DAILY 01/19/17 [History] amLODIPine [Norvasc] 5 mg PO DAILY 01/19/17 [History] Calcium Carb/Vit D3/Minerals [Calcium 600+D Plus Minerals] 1 each PO BID 10/08/18 [History] Levothyroxine [Synthroid] 50 mcg PO ACBREAKFAST 10/08/18 [History] Rosuvastatin [Crestor] 5 mg PO BEDTIME 11/05/18 [History] Calcium Carbonate [Tums] 2 tab PO QID PRN 06/27/20 [History] Docusate Sodium 100 mg PO DAILY 06/27/20 [History] Ginkgo Biloba [place] Extract [Ginkgo Biloba] 1 tab PO DAILY 06/27/20 [History] Multivit-Min/FA/Lycopen/Lutein [Certavite Senior Tablet] 1 tab PO DAILY 06/27/20 [History] fentaNYL [Duragesic] 50 mcg TRDERM Q72H 06/27/20 [History] Tamsulosin [Flomax] 0.4 mg PO DAILY #20 cap.er 07/02/20 [Rx] Acetaminophen [Mapap] 500 mg PO Q4H PRN 03/24/21 [History] Aspirin [Aspirin EC] 325 mg PO DAILY 03/24/21 [History] Bacillus Coagulans [Probiotic] 2 tab PO BEDTIME 03/24/21 [History] Metoprolol Succinate [Toprol XL] 25 mg PO DAILY 03/24/21 [History] Neomycin/Bacitracin/Polymyxinb [Antibiotic Ointment] 1 applic TP DAILY PRN 03/24/21 [History] Ondansetron [Zofran ODT] 4 mg PO Q8H PRN 03/24/21 [History] polyethylene glycoL 3350 [Miralax] 17 gm PO DAILY #1 canister 03/24/21 [Rx] traZODone 50 mg PO BEDTIME PRN 03/24/21 [History] Past Medical History HEENT History: Reports: Hard of Hearing, Impaired Vision Other HEENT History: wears glasses, upper/lower dentures, bilateral hearing aids Cardiovascular History: Reports: CAD, High Cholesterol, Hypertension, CA Other 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 - Past Surgical History Cardiovascular Surgical History: Reports: Coronary Artery Bypass GI Surgical History: Reports: Appendectomy, Hernia, Inguinal Musculoskeletal Surgical History: Reports: Shoulder Surgery Social & Family History - Family History Family Medical History: No Pertinent Family History - Caffeine Use Caffeine Use: Reports: None - Living Situation & Occupation Living situation: Reports: , Alone Occupation: Retired ED ROS GENERAL - Review of Systems Review Of Systems: See Below Constitutional: Reports: Fatigue, Decreased Appetite. Denies: Fever, Chills, Malaise, Weakness HEENT: Reports: Glasses Respiratory: Reports: Shortness of Breath Cardiovascular: Reports: Blood Pressure Problem, Dyspnea on Exertion. Denies: Claudication, Edema, Lightheadedness, Orthopnea Endocrine: Reports: Fatigue GI/Abdominal: Reports: Abdominal Pain (Occasion), Constipation (Primarily left lower quadrant and suprapubic at this time. Chronic problems with constipation) : Reports: Frequency, Other (Passive catheter.) Musculoskeletal: Reports: Other Skin: Reports: No Symptoms (Osteoarthritic changes knees hips low back neck at times) Neurological: Reports: No Symptoms. Denies: Confusion, Dizziness, Headache, Numbness Psychiatric: Reports: No Symptoms Hematologic/Lymphatic: Reports: No Symptoms Immunologic: Reports: No Symptoms ED EXAM, GI/ABD - Physical Exam Exam: See Below Exam Limited By: No Limitations General Appearance: Alert, WD/WN, Anxious ( discomfort.), Mild Distress, Other (Anxious and obviously in some degree of discomfort. Temperature is 36.3 degrees with pulse ox of 94% room air. Heart rate is 65 and sinus. Respiratory of 18 BP 150/79) Eyes: Bilateral: Normal Appearance (No scleral icterus. Mild blepharal pallor.) Throat/Mouth: Normal Inspection, Normal Lips, Normal Oropharynx, Other (Is mildly dry and coated.) Respiratory/Chest: No Respiratory Distress, Lungs Clear, Normal Breath Sounds, No Accessory Muscle Use, Decreased Breath Sounds Cardiovascular: Normal Peripheral Pulses, Regular Rate, Rhythm, No Edema, No Gallop, No Murmur (Sounds are diminished to both posterior lung peña.), No Rub GI/Abdominal Exam: No Organomegaly (Minimally distended and tympany to percussion upper abdomen. ), Distended ( all 4 quadrants.), Tender (Underlying the left mid and lower quadrant of the abdomen and distribution of the left descending colon and sigmoid colon. Also tender suprapubically.), Abnormal Bowel Sounds (Active bowel sounds). No: Guarding, Rigid, Rebound (Male) Exam: No Hernia Rectal (Males) Exam: Other (No hemorrhoids. Soft brown stool evident at the anus.) Back Exam: Normal Inspection, Full Range of Motion. No: CVA Tenderness (L), CVA Tenderness (R) Extremities: Normal Inspection, Normal Range of Motion, Non-Tender, No Pedal Edema Neurological: Alert, Oriented, CN II-XII Intact, Normal Cognition Psychiatric: Anxious, Other Skin Exam: Warm, Dry (In some degree of pain as well.), Intact, Normal Color, No Rash Course - Vital Signs Last Recorded V/S: Last Vital Signs Temp 36.3 C 03/24/21 10:06 Pulse 65 03/24/21 10:06 Resp 18 03/24/21 10:06 BP 150/79 H 03/24/21 10:06 Pulse Ox 94 L 03/24/21 10:06 - Orders/Labs/Meds Orders: Active Orders 24 hr Category Date Time Status Bladder Scan [RC] ASDIRECTED Care 03/24/21 09:48 Active Enema [RC] ASDIRECTED Care 03/24/21 10:39 Active Dextrose 5%-0.9% NaCl [Dextrose 5%-Normal Saline] 1,000 Med 03/24/21 10:00 Active ml IV ASDIRECTED Medication Orders Dextrose/Sodium Chloride (Dextrose 5%-Normal Saline) 1,000 mls @ 100 mls/hr IV ASDIRECTED [facility] Last Admin: 03/24/21 10:16 Dose: 100 mls/hr Documented by: CATHERINE Meds: Medications Generic Name Dose Route Start Last Admin Trade Name Freq PRN Reason Stop Dose Admin Dextrose/Sodium Chloride 1,000 mls @ 100 mls/hr 03/24/21 10:00 03/24/21 10:16 Dextrose 5%-Normal Saline IV 100 mls/hr ASDIRECTED [facility] Administration Discontinued Medications Generic Name Dose Route Start Last Admin Trade Name Freq PRN Reason Stop Dose Admin Hydromorphone HCl 0.5 mg 03/24/21 09:48 07/28/21 10:17 Hydromorphone 0.5 Mg/0.5 Ml Syringe IVPUSH 03/24/21 09:49 0.5 mg ONETIME ONE Administration Lidocaine HCl 10 ml 03/24/21 10:39 03/24/21 11:14 Lidocaine 2% Jelly 10 Ml Urojet MUCMEM 03/24/21 10:40 10 ml ONETIME ONE Administration Metoclopramide HCl 5 mg 03/24/21 09:48 03/24/21 10:17 Metoclopramide 10 Mg/2 Ml Sdv IVPUSH 03/24/21 09:49 5 mg ONETIME ONE Administration - Radiology Interpretation Free Text/Narrative:: 85-year-old male presents to the ED primarily with lower abdominal discomfort left-sided lower abdominal discomfort as well. He states he has not had a bowel mood for a few days did take a Colace tablet and then had feeling to have a bowel movement. However prolonged sitting on the toilet and bearing down hard and using his finger to facilitate bowel movement gave him increased discomfort with some mild stool production. He feels like he is unable to pass his water or bowels at this time. Has a history of an enlarged prostate gland and prostate cancer. Benign abdominal examination other than tenderness in the distribution of the left colon and suprapubically. Dullness to percussion suprapubically compared with full bladder. Bladder scan reveals 330 mils of urine in the bladder. He states he is very hard to get a Castillo catheter in 2 due to prostate cancer. Plan KUB will be done. IV will be D5 normal saline at 100 mils an hour. Given Dilaudid 0.5 mg IV for pain relief and Reglan 5 mg IV for nausea relief. KUB to be done. May well require Castillo catheter placement as well. - Re-Assessments/Exams Free Text/Narrative Re-Assessment/Exam: 03/24/21 10:37 KUB reveals increased stool in the right hemicolon and a large bolus of stool in the rectal vault. No sign of bowel obstruction. 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 Previous sternotomy wires appreciated. Patient will be given a soapsuds enema with some hydroperoxide in the hopes that he can retain this fluid. We will al so anesthetize his anus with topical lidocaine. 03/24/21 12:06 nurses report that the patient was able to hold a good deal of his soapsuds enema. He is currently in the bathroom. 03/24/21 12:19 nurses report that he had a very large bowel movement and feels much improved in this regard. He has yet to void however. Repeat bladder scan 399 mils in his urine. He wants to wait a little bit to see if he can pass his urine on his own before we cath him. He does not feel the need to void at this time. 03/24/21 13:04 patient did empty his bladder of 200 mils of urine. He still had 271 mils left in the urinary bladder indicating that he is retaining but he states he often goes 15 minutes later and empties his bladder further. He will be discharged to home but advised to keep a close eye on ability to empty his urine completely. He needs a bladder scan every time he sees the physician. A post void residual. Departure - Departure Time of Disposition: 13:05 Disposition: Home, Self-Care 01 Condition: Fair Clinical Impression: Constipation by delayed colonic transit, Urinary retention - Discharge Information *PRESCRIPTION DRUG MONITORING PROGRAM REVIEWED*: Not Applicable *COPY OF PRESCRIPTION DRUG MONITORING REPORT IN PATIENT LASHA: Not Applicable Prescriptions: polyethylene glycoL 3350 [Miralax] 17 gm PO DAILY #1 canister Referrals: Brandon Rockwell MD [Primary Care Provider] - Forms: ED Department Discharge Additional Instructions: Evaluation in the emergency room today in regards to problems with constipation with no good bowel movement for the last 2 to 3 days. X-ray revealed a very large ball of stool in the rectal vault almost the size of a softball. This was softened with the aid of a soapsuds enema and you were able to pass a large amount of stool and felt better. Your urinary bladder still contained a fair amount of urine a 330 mils after passage of the stool. You were able to empty about 200 mils of urine from the bladder but it still contains over 200 mils. It is important that the bladder empty completely otherwise it is going to cause backup problems with the kidneys and inability to get rid of the urine. Every time you see the doctor you should have a bladder scan done on your bladder after you pass your water. Otherwise follow-up with urologist as indicated. Suggest MiraLAX powder 17 g once daily to prevent constipation from occurring. Sepsis Event Note (ED) - Focused Exam Vital Signs: Vital Signs Temp Pulse Resp BP Pulse Ox 03/24/21 10:06 36.3 C 65 18 150/79 H 94 L - My Orders Last 24 Hours: My Active Orders 03/24/21 09:48 Bladder Scan [RC] ASDIRECTED 03/24/21 10:00 Dextrose 5%-0.9% NaCl [Dextrose 5%-Normal Saline] 1,000 ml IV ASDIRECTED 03/24/21 10:39 Enema [RC] ASDIRECTED - Assessment/Plan Last 24 Hours: My Active Orders 03/24/21 09:48 Bladder Scan [RC] ASDIRECTED 03/24/21 10:00 Dextrose 5%-0.9% NaCl [Dextrose 5%-Normal Saline] 1,000 ml IV ASDIRECTED 03/24/21 10:39 Enema [RC] ASDIRECTED
[2021-03-24] MEDS ORDERED: Dextrose 5%-0.9% NaCl 1,000 ML IV SCH (10:00)
[2021-03-24 10:17] VITALS: BP 150/79; PULSE 65
--- NOTE | 2021-03-24 10:20 | CR ---
Abdomen: Supine view of the abdomen was obtained. Comparison: No prior abdominal x-ray, prior CT abdomen and pelvis exam of 03/05/17. Radiation implant seeds are seen within the prostate gland. Vascular calcification is noted. Mild scattered degenerative change is noted within the spine. Bowel gas pattern is normal. Sternotomy is noted. Impression: 1. Findings as noted above. 2. Nothing acute is seen. Diagnostic code #2
[2021-03-24] MEDS ORDERED: Lidocaine 2% Jelly 10 ML Urojet MUCMEM ONE (10:39)
== END 2021-03-24 13:25 | disposition home or self-care (01) ==
LOC: JD.ED 09:12
DX: K59.01 Slow transit constipation (principal); R33.9 Retention of urine, unspecified; I25.10 Atherosclerotic heart disease of native coronary artery without angina pectoris; E78.00 Pure hypercholesterolemia, unspecified; I10 Essential (primary) hypertension; I25.2 Old myocardial infarction; E03.9 Hypothyroidism, unspecified; Z79.82 Long term (current) use of aspirin; Z79.899 Other long term (current) drug therapy
CPT/HCPCS: 51798; 74018; 96374; 96375; 99284; J1170; J2765; J7042; 99283

== ENCOUNTER 2021-04-07 14:31 | Emergency (ER) | payer MEDICARE, OTHER ==
[2021-04-07 14:44] VITALS: BP 150/60; PULSE 66
[2021-04-07] MEDS ORDERED: Sodium Chloride 0.9% 10 ML Syringe FLUSH PRN (15:04)
--- NOTE | 2021-04-07 16:52 | EDM.PDOC ---
ED HPI GENERAL MEDICAL PROBLEM - General Chief Complaint: Chest Pain Stated Complaint: CHEST/BACK PAIN HIGH BLOOD PRESSURE Time Seen by Provider: 04/07/21 14:38 Source of Information: Reports: Patient, Family History Limitations: Reports: No Limitations - History of Present Illness INITIAL COMMENTS - FREE TEXT/NARRATIVE: The patient presents from [facility] for chest pain. He said the pain started shortly after lunch. The pain is in the left chest. He has no shortness of breath with it. He has no abdominal pain, nausea or vomiting. He did have an SD with 3 vessel CABG 7 years ago. Onset: Sudden Duration: Hour(s): Location: Reports: Chest Quality: Reports: Sharp Severity: Mild Improves with: Reports: None Worsens with: Reports: None Associated Symptoms: Reports: Chest Pain. Denies: Cough, Fever/Chills, Headaches, Nausea/Vomiting, Shortness of Breath Middle Chest Pain Score (Numeric/FACES): 7 - Related Data Allergies Allergy/AdvReac Type Severity Reaction Status Date / Time No Known Allergies Allergy Verified 04/07/21 14:44 Home Meds: Home Meds Acetaminophen [Tylenol] 650 mg PO Q4HR PRN 08/16/15 [History] Vit A/Vit C/Vit E/Zinc/Copper [Preservision] 1 tab PO DAILY 01/19/17 [History] amLODIPine [Norvasc] 5 mg PO DAILY 01/19/17 [History] Calcium Carb/Vit D3/Minerals [Calcium 600+D Plus Minerals] 1 each PO BID 10/08/18 [History] Levothyroxine [Synthroid] 50 mcg PO ACBREAKFAST 10/08/18 [History] Rosuvastatin [Crestor] 5 mg PO BEDTIME 11/05/18 [History] Calcium Carbonate [Tums] 2 tab PO QID PRN 06/27/20 [History] Docusate Sodium 100 mg PO DAILY 06/27/20 [History] Ginkgo Biloba [place] Extract [Ginkgo Biloba] 1 tab PO DAILY 06/27/20 [History] Multivit-Min/FA/Lycopen/Lutein [Certavite Senior Tablet] 1 tab PO DAILY 06/27/20 [History] fentaNYL [Duragesic] 50 mcg TRDERM Q72H 06/27/20 [History] Tamsulosin [Flomax] 0.4 mg PO DAILY #20 cap.er 07/02/20 [Rx] Acetaminophen [Mapap] 500 mg PO Q4H PRN 03/24/21 [History] Aspirin [Aspirin EC] 325 mg PO DAILY 03/24/21 [History] Bacillus Coagulans [Probiotic] 2 tab PO BEDTIME 03/24/21 [History] Metoprolol Succinate [Toprol XL] 25 mg PO DAILY 03/24/21 [History] Neomycin/Bacitracin/Polymyxinb [Antibiotic Ointment] 1 applic TP DAILY PRN 03/24/21 [History] Ondansetron [Zofran ODT] 4 mg PO Q8H PRN 03/24/21 [History] polyethylene glycoL 3350 [Miralax] 17 gm PO DAILY #1 canister 03/24/21 [Rx] traZODone 50 mg PO BEDTIME PRN 03/24/21 [History] Past Medical History HEENT History: Reports: Hard of Hearing, Impaired Vision Other HEENT History: wears glasses, upper/lower dentures, bilateral hearing aids Cardiovascular History: Reports: CAD, High Cholesterol, Hypertension, [place] Other 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 Gastrointestinal History: Reports: Chronic Constipation Genitourinary History: Reports: Renal Calculus Other Genitourinary History: prostate cancer Endocrine/Metabolic History: Reports: Hypothyroidism Oncologic (Cancer) History: Reports: Prostate Other Oncologic History: with bone mets - Infectious Disease History Infectious Disease History: Reports: Other (See Below) Other Infectious Disease History: patient does not remember. - Past Surgical History Cardiovascular Surgical History: Reports: Coronary Artery Bypass GI Surgical History: Reports: Appendectomy, Hernia, Inguinal Male Surgical History: Reports: Other (See Below) Other Male Surgeries/Procedures: hernia repair Musculoskeletal Surgical History: Reports: Shoulder Surgery Social & Family History - Family History Family Medical History: No Pertinent Family History - Tobacco Use Tobacco Use Status *Q: Never Tobacco User - Caffeine Use Caffeine Use: Reports: None - Recreational Drug Use Recreational Drug Use: No - Living Situation & Occupation Living situation: Reports: , Alone Occupation: Retired ED ROS GENERAL - Review of Systems Review Of Systems: See Below Constitutional: Reports: No Symptoms HEENT: Reports: No Symptoms Respiratory: Reports: No Symptoms Cardiovascular: Reports: Chest Pain Endocrine: Reports: No Symptoms GI/Abdominal: Reports: No Symptoms : Reports: No Symptoms Musculoskeletal: Reports: No Symptoms ED EXAM, GENERAL - Physical Exam Exam: See Below Exam Limited By: No Limitations General Appearance: Alert, No Apparent Distress Ears: Normal External Exam Nose: Normal Inspection Head: Atraumatic, Normocephalic Neck: Normal Inspection Respiratory/Chest: No Respiratory Distress, Lungs Clear, Normal Breath Sounds Cardiovascular: Regular Rate, Rhythm, No Edema, No Murmur GI/Abdominal: Soft, Non-Tender, No Organomegaly, No Mass Back Exam: Normal Inspection Extremities: Normal Inspection #1 Interpretation EKG Date: 04/07/21 Time: 14:40 Rhythm: NSR Rate (Beats/Min): 68 [place]: Normal P-Wave: Present QRS: Normal ST-T: Normal QT: Normal Course - Vital Signs Last Recorded V/S: Last Vital Signs Temp 97.6 F 04/07/21 14:39 Pulse 66 04/07/21 14:39 Resp 18 04/07/21 14:39 BP 150/60 H 04/07/21 14:39 Pulse Ox 99 04/07/21 14:39 - Orders/Labs/Meds Orders: Active Orders 24 hr Category Date Time Status Cardiac Monitoring [RC] . DIRECTED Care 04/07/21 15:04 Active EKG Documentation Completion [RC] STAT Care 04/07/21 15:04 Active Peripheral IV Care [RC] . DIRECTED Care 04/07/21 15:05 Active Chest 1V Frontal [CR] Stat Exams 04/07/21 15:05 Taken TROPONIN I [CHEM] Stat Lab 04/07/21 16:35 Received Sodium Chloride 0.9% [Saline Flush] Med 04/07/21 15:04 Active 10 ml FLUSH ASDIRECTED PRN Peripheral IV Insertion Adult [OM.PC] Stat Oth 04/07/21 15:04 Ordered Medication Orders Sodium Chloride (Sodium Chloride 0.9% 10 Ml Syringe) 10 ml FLUSH ASDIRECTED PRN PRN Reason: Keep Vein Open Last Admin: 04/07/21 15:11 Dose: 10 ml Documented by: JEWEL Labs: Laboratory Tests 04/07/21 04/07/21 Range/Units 14:40 14:40 WBC 5.85 (4.23-9.07) K/mm3 RBC 4.45 L (4.63-6.08) M/mm3 Hgb 13.5 L D (13.7-17.5) gm/dl Hct 42.7 (40.1-51.0) % MCV 96.0 H D (79.0-92.2) fl MCH 30.3 (25.7-32.2) pg MCHC 31.6 L (32.2-35.5) g/dl RDW Std Deviation 46.5 H (35.1-43.9) fL Plt Count 254 (163-337) K/mm3 MPV 9.9 (9.4-12.3) fl Neut % (Auto) 64.3 (34.0-67.9) % Lymph % (Auto) 25.1 (21.8-53.1) % [place] % (Auto) 7.2 (5.3-12.2) % Eos % (Auto) 2.2 (0.8-7.0) Baso % (Auto) 0.9 (0.1-1.2) % Neut # (Auto) 3.76 (1.78-5.38) K/mm3 Lymph # (Auto) 1.47 (1.32-3.57) K/mm3 [place] # (Auto) 0.42 (0.30-0.82) K/mm3 Eos # (Auto) 0.13 (0.04-0.54) K/mm3 Baso # (Auto) 0.05 (0.01-0.08) K/mm3 Sodium 139 (136-145) mEq/L Potassium 4.2 (3.5-5.1) mEq/L Chloride 102 (98-107) mEq/L Carbon Dioxide 30 (21-32) mEq/L Anion Gap 11.2 (5-15) BUN 20 H (7-18) mg/dL Creatinine 1.2 (0.7-1.3) mg/dL Est Cr Clr Drug Dosing 44.78 mL/min Estimated GFR (MDRD) 57 (>60) mL/min BUN/Creatinine Ratio 16.7 (14-18) Glucose 110 H (70-99) mg/dL Calcium 8.8 (8.5-10.1) mg/dL Total Bilirubin 0.3 (0.2-1.0) mg/dL AST 21 (15-37) U/L ALT 21 (16-63) U/L Alkaline Phosphatase 63 (46-116) U/L Troponin I < 0.017 (0.00-0.056) ng/mL Total Protein 7.0 (6.4-8.2) g/dl Albumin 3.8 (3.4-5.0) g/dl Globulin 3.2 gm/dL Albumin/Globulin Ratio 1.2 (1-2) Meds: Medications Generic Name Dose Route Start Last Admin Trade Name Freq PRN Reason Stop Dose Admin Sodium Chloride 10 ml 04/07/21 15:04 04/07/21 15:11 Sodium Chloride 0.9% 10 Ml Syringe FLUSH 10 ml ASDIRECTED PRN Administration Keep Vein Open - Re-Assessments/Exams Free Text/Narrative Re-Assessment/Exam: 04/07/21 16:50 I ordered an IV saline lock, EKG, CXR and labs. His EKG shows a NSR with no acute changes. His CXR looks good. His CBC and CMP look good. His troponin is negative. He feels better. I will do a repeat troponin and discharge him home. Departure - Departure Time of Disposition: 16:55 Disposition: Home, Self-Care 01 Condition: Good Clinical Impression: Atypical chest pain Referrals: Brandon Rockwell MD [Primary Care Provider] - 1 Week Additional Instructions: Take your medication as prescribed. You can take tylenol as needed for pain. Please return if you are worse. Sepsis Event Note (ED) - Evaluation Sepsis Screening Result: No Definite Risk - Focused Exam Vital Signs: Vital Signs Temp Pulse Resp BP Pulse Ox 04/07/21 14:39 97.6 F 66 18 150/60 H 99 - My Orders Last 24 Hours: My Active Orders 04/07/21 15:04 Cardiac Monitoring [RC] . DIRECTED EKG Documentation Completion [RC] STAT Sodium Chloride 0.9% [Saline Flush] 10 ml FLUSH ASDIRECTED PRN Peripheral IV Insertion Adult [OM.PC] Stat 04/07/21 15:05 Peripheral IV Care [RC] . DIRECTED Chest 1V Frontal [CR] Stat 04/07/21 16:35 TROPONIN I [CHEM] Stat - Assessment/Plan Last 24 Hours: My Active Orders 04/07/21 15:04 Cardiac Monitoring [RC] . DIRECTED EKG Documentation Completion [RC] STAT Sodium Chloride 0.9% [Saline Flush] 10 ml FLUSH ASDIRECTED PRN Peripheral IV Insertion Adult [OM.PC] Stat 04/07/21 15:05 Peripheral IV Care [RC] . DIRECTED Chest 1V Frontal [CR] Stat 04/07/21 16:35 TROPONIN I [CHEM] Stat
--- NOTE | 2021-04-07 17:14 | CR ---
Chest: Portable view of the chest was obtained. Comparison: Prior chest x-ray of 09/26/16. Heart size is normal. Tortuous thoracic aorta is seen. Sternotomy wires are seen. Old rib fractures showing deformity are seen on the right side. Old left upper rib fracture is also noted. Chronic rotator cuff tear is noted within the right shoulder. Minimal scarring is seen with the left base. No acute parenchymal change is seen. Impression: 1. Findings as noted above. 2. Nothing acute is appreciated. Diagnostic code #2
== END 2021-04-07 17:10 | disposition home or self-care (01) ==
LOC: JD.ED 14:31
DX: R07.89 Other chest pain (principal); I25.10 Atherosclerotic heart disease of native coronary artery without angina pectoris; E78.00 Pure hypercholesterolemia, unspecified; I10 Essential (primary) hypertension; I25.2 Old myocardial infarction; E03.9 Hypothyroidism, unspecified; Z95.1 Presence of aortocoronary bypass graft; Z79.899 Other long term (current) drug therapy
CPT/HCPCS: 36415; 71045; 71045-26; 80053; 84484; 85025; 93005; 93010; 99284; 99285-25

== ENCOUNTER 2021-04-19 10:04 | Emergency (ER) | payer MEDICARE, OTHER ==
[2021-04-19 10:32] VITALS: BP 172/73
[2021-04-19 10:37] VITALS: PULSE 59
[2021-04-19] MEDS ORDERED: HYDROmorphone 0.5 MG/0.5 ML Syringe IVPUSH ONE (11:35)
--- NOTE | 2021-04-19 11:38 | EDM.PDOC ---
ED HPI GENERAL MEDICAL PROBLEM - General Chief Complaint: Chest Pain Stated Complaint: BLOOD CLOT IN CHEST Time Seen by Provider: 04/19/21 11:08 Source of Information: Reports: Patient, Family (daughter), Intermediate Records ([facility]), RN Notes Reviewed History Limitations: Reports: No Limitations - History of Present Illness INITIAL COMMENTS - FREE TEXT/NARRATIVE: Patient is an 85-year-old male who presents to the ER with his daughter for the evaluation of a few different complaints. Patient notes that he had been diagnosed with a kidney stone, sometime ago, he has been back and forth [place] a few times retrieval and/or removal of the stone, but attempts have been unsuccessful. He has also been diagnosed with a blood clot, with Dr. Rockwell, last week and placed on Eliquis. He has been taking 2 tablets of Tylenol every 4 hours for pain management at home. Patient has a history of prostate cancer as well, and is on a fentanyl patch. He does note that he is supposed to be on infusions for the cancer, but has not had these the last few times, due to him feeling sick. He states that the pain seems to starts in his flank on the right side, and work its way up into his chest, and he gets a little bit nauseous and short of breath when the pain is at its worst. States that the pain feels something like a kidney stone as well. He has had no fevers or chills, cough, worsening shortness of breath, or any sort of ongoing nausea/vomiting/diarrhea. Chest Pain Score (Numeric/FACES): 8 - Related Data Allergies Allergy/AdvReac Type Severity Reaction Status Date / Time No Known Allergies Allergy Verified 04/07/21 14:44 Home Meds: Home Meds Calcium Carb/Vit D3/Minerals [Calcium 600+D Plus Minerals] 1 each PO BID 10/08/18 [History] Levothyroxine [Synthroid] 50 mcg PO ACBREAKFAST 10/08/18 [History] Rosuvastatin [Crestor] 5 mg PO BEDTIME 11/05/18 [History] Calcium Carbonate [Tums] 2 tab PO QID PRN 06/27/20 [History] Docusate Sodium 100 mg PO DAILY 06/27/20 [History] Ginkgo Biloba [place] Extract [Ginkgo Biloba] 1 tab PO DAILY 06/27/20 [History] Multivit-Min/FA/Lycopen/Lutein [Certavite Senior Tablet] 1 tab PO DAILY 06/27/20 [History] fentaNYL [Duragesic] 50 mcg TRDERM Q72H 06/27/20 [History] Tamsulosin [Flomax] 0.4 mg PO DAILY #20 cap.er 07/02/20 [Rx] Acetaminophen [Mapap] 500 mg PO Q4H PRN 03/24/21 [History] Aspirin [Aspirin EC] 325 mg PO DAILY 03/24/21 [History] Bacillus Coagulans [Probiotic] 2 tab PO BEDTIME 03/24/21 [History] Metoprolol Succinate [Toprol XL] 25 mg PO QPM 03/24/21 [History] Neomycin/Bacitracin/Polymyxinb [Antibiotic Ointment] 1 applic TP DAILY PRN 03/24/21 [History] Ondansetron [Zofran ODT] 4 mg PO Q8H PRN 03/24/21 [History] polyethylene glycoL 3350 [Miralax] 17 gm PO DAILY #1 canister 03/24/21 [Rx] traZODone 50 mg PO BEDTIME PRN 03/24/21 [History] Apixaban [Eliquis] 5 mg PO BID 04/19/21 [History] Vit C/E/Zn/Coppr/Lutein/Zeaxan [Preservision Areds 2 Softgel] 1 cap PO DAILY 04/19/21 [History] amLODIPine [Norvasc] 5 mg PO DAILY 04/19/21 [History] Past Medical History HEENT History: Reports: Hard of Hearing, Impaired Vision Other HEENT History: wears glasses, upper/lower dentures, bilateral hearing aids Cardiovascular History: Reports: CAD, High Cholesterol, Hypertension, [place] Other 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 Respiratory History: Reports: PE Gastrointestinal History: Reports: Chronic Constipation Genitourinary History: Reports: Renal Calculus Other Genitourinary History: prostate cancer Endocrine/Metabolic History: Reports: Hypothyroidism Oncologic (Cancer) History: Reports: Prostate Other Oncologic History: with bone mets - Infectious Disease History Infectious Disease History: Reports: Other (See Below) Other Infectious Disease History: patient does not remember. - Past Surgical History Cardiovascular Surgical History: Reports: Coronary Artery Bypass GI Surgical History: Reports: Appendectomy, Hernia, Inguinal Male Surgical History: Reports: Other (See Below) Other Male Surgeries/Procedures: hernia repair Musculoskeletal Surgical History: Reports: Shoulder Surgery Social & Family History - Family History Family Medical History: No Pertinent Family History - Tobacco Use Tobacco Use Status *Q: Former Tobacco User Used Tobacco, but Quit: Yes Month/Year Tobacco Last Used: 60 yrs ago - Caffeine Use Caffeine Use: Reports: None - Recreational Drug Use Recreational Drug Use: No - Living Situation & Occupation Living situation: Reports: , Alone Occupation: Retired ED ROS GENERAL - Review of Systems Review Of Systems: Comprehensive ROS is negative, except as noted in HPI. ED EXAM, GENERAL - Physical Exam Exam: See Below Exam Limited By: No Limitations General Appearance: Alert, WD/WN, No Apparent Distress Eye Exam: Bilateral Eye: EOMI, Normal Inspection, PERRL Throat/Mouth: Normal Inspection, Normal Lips, Normal Teeth, Normal Gums, Normal Oropharynx, Normal Voice, No Airway Compromise Respiratory/Chest: No Respiratory Distress, Lungs Clear, Normal Breath Sounds, No Accessory Muscle Use, Chest Non-Tender Cardiovascular: Normal Peripheral Pulses, Regular Rate, Rhythm, No Edema Peripheral Pulses: 2+: Radial (L), Radial (R) GI/Abdominal: Normal Bowel Sounds, Soft, Non-Tender, No Distention, No Mass Neurological: Alert, Oriented, Normal Cognition, No Motor/Sensory Deficits Psychiatric: Normal Affect, Normal Mood Skin Exam: Warm, Dry, Intact, Normal Color, No Rash Course - Vital Signs Last Recorded V/S: Last Vital Signs Temp 97.8 F 04/19/21 10:34 Pulse 59 L 04/19/21 10:34 Resp 18 04/19/21 10:34 BP 172/73 H 04/19/21 10:34 Pulse Ox 97 04/19/21 10:34 - Orders/Labs/Meds Labs: Laboratory Tests 04/19/21 04/19/21 04/19/21 Range/Units 10:25 10:25 10:25 WBC 4.54 (4.23-9.07) K/mm3 RBC 4.44 L (4.63-6.08) M/mm3 Hgb 13.7 (13.7-17.5) gm/dl Hct 42.3 (40.1-51.0) % MCV 95.3 H (79.0-92.2) fl MCH 30.9 (25.7-32.2) pg MCHC 32.4 (32.2-35.5) g/dl RDW Std Deviation 46.7 H (35.1-43.9) fL Plt Count 232 (163-337) K/mm3 MPV 9.8 (9.4-12.3) fl Neut % (Auto) 67.9 (34.0-67.9) % Lymph % (Auto) 18.5 L (21.8-53.1) % [place] % (Auto) 10.6 (5.3-12.2) % Eos % (Auto) 1.5 (0.8-7.0) Baso % (Auto) 1.5 H (0.1-1.2) % Neut # (Auto) 3.08 (1.78-5.38) K/mm3 Lymph # (Auto) 0.84 L (1.32-3.57) K/mm3 [place] # (Auto) 0.48 (0.30-0.82) K/mm3 Eos # (Auto) 0.07 (0.04-0.54) K/mm3 Baso # (Auto) 0.07 (0.01-0.08) K/mm3 Sodium 136 (136-145) mEq/L Potassium 4.5 (3.5-5.1) mEq/L Chloride 101 (98-107) mEq/L Carbon Dioxide 29 (21-32) mEq/L Anion Gap 10.5 (5-15) BUN 14 (7-18) mg/dL Creatinine 1.0 (0.7-1.3) mg/dL Est Cr Clr Drug Dosing 54.09 mL/min Estimated GFR (MDRD) > 60 (>60) mL/min BUN/Creatinine Ratio 14.0 (14-18) Glucose 100 H (70-99) mg/dL Calcium 8.9 (8.5-10.1) mg/dL Total Bilirubin 0.5 (0.2-1.0) mg/dL AST 29 (15-37) U/L ALT 33 (16-63) U/L Alkaline Phosphatase 50 (46-116) U/L Troponin I < 0.017 (0.00-0.056) ng/mL Total Protein 7.3 (6.4-8.2) g/dl Albumin 4.0 (3.4-5.0) g/dl Globulin 3.3 gm/dL Albumin/Globulin Ratio 1.2 (1-2) Urine Color (Yellow) Urine Appearance (Clear) Urine pH (5.0-8.0) Ur Specific [place] (1.005-1.030) Urine Protein (Negative) Urine Glucose (UA) (Negative) Urine Ketones (Negative) Urine Occult Blood (Negative) Urine Nitrite (Negative) Urine Bilirubin (Negative) Urine Urobilinogen (0.2-1.0) Ur Leukocyte Esterase (Negative) Urine RBC (0-5) /hpf Urine WBC (0-5) /hpf Ur Squamous Epith Cells (0-5) /hpf Urine Bacteria (FEW) /hpf Urine Mucus (FEW) /hpf 04/19/21 Range/Units 11:26 WBC (4.23-9.07) K/mm3 RBC (4.63-6.08) M/mm3 Hgb (13.7-17.5) gm/dl Hct (40.1-51.0) % MCV (79.0-92.2) fl MCH (25.7-32.2) pg MCHC (32.2-35.5) g/dl RDW Std Deviation (35.1-43.9) fL Plt Count (163-337) K/mm3 MPV (9.4-12.3) fl Neut % (Auto) (34.0-67.9) % Lymph % (Auto) (21.8-53.1) % [place] % (Auto) (5.3-12.2) % Eos % (Auto) (0.8-7.0) Baso % (Auto) (0.1-1.2) % Neut # (Auto) (1.78-5.38) K/mm3 Lymph # (Auto) (1.32-3.57) K/mm3 [place] # (Auto) (0.30-0.82) K/mm3 Eos # (Auto) (0.04-0.54) K/mm3 Baso # (Auto) (0.01-0.08) K/mm3 Sodium (136-145) mEq/L Potassium (3.5-5.1) mEq/L Chloride (98-107) mEq/L Carbon Dioxide (21-32) mEq/L Anion Gap (5-15) BUN (7-18) mg/dL Creatinine (0.7-1.3) mg/dL Est Cr Clr Drug Dosing mL/min Estimated GFR (MDRD) (>60) mL/min BUN/Creatinine Ratio (14-18) Glucose (70-99) mg/dL Calcium (8.5-10.1) mg/dL Total Bilirubin (0.2-1.0) mg/dL AST (15-37) U/L ALT (16-63) U/L Alkaline Phosphatase (46-116) U/L Troponin I (0.00-0.056) ng/mL Total Protein (6.4-8.2) g/dl Albumin (3.4-5.0) g/dl Globulin gm/dL Albumin/Globulin Ratio (1-2) Urine Color Yellow (Yellow) Urine Appearance Clear (Clear) Urine pH 7.0 (5.0-8.0) Ur Specific [place] 1.015 (1.005-1.030) Urine Protein Negative (Negative) Urine Glucose (UA) Negative (Negative) Urine Ketones Negative (Negative) Urine Occult Blood Trace-lysed H (Negative) Urine Nitrite Negative (Negative) Urine Bilirubin Negative (Negative) Urine Urobilinogen 0.2 (0.2-1.0) Ur Leukocyte Esterase Negative (Negative) Urine RBC 5-10 H (0-5) /hpf Urine WBC 0-5 (0-5) /hpf Ur Squamous Epith Cells 0-5 (0-5) /hpf Urine Bacteria Few (FEW) /hpf Urine Mucus Not seen (FEW) /hpf Meds: Medications Discontinued Medications Generic Name Dose Route Start Last Admin Trade Name Freq PRN Reason Stop Dose Admin Hydromorphone HCl 0.5 mg 04/19/21 11:35 04/19/21 12:14 Hydromorphone 0.5 Mg/0.5 Ml Syringe IVPUSH 04/19/21 11:36 0.5 mg ONETIME ONE Administration - Re-Assessments/Exams Free Text/Narrative Re-Assessment/Exam: 04/19/21 11:37 Patient presents to the ER with a few different issues, management seems to be more for pain control, and to see where the kidney stones are at this time. Family did raise concern about the possibility of him not getting his required Eliquis at night, as there has been a few changes in nursing staff/Travelers at [facility] assisted living, and family again is concerned about him getting correct meds. The daughter is going to confirm with nursing staff, that he is indeed getting all of his meds when he leaves here. We will go ahead and do abdomen pelvis CT without contrast for evaluation of kidney stones, give him some pain medication, CBC, CMP and a troponin were drawn at the time of triage, we will go ahead and await those labs as well. 04/19/21 12:28 CTA report from [place] done on 04/13/2021 did demonstrate moderate pulmonary emphysematous changes, nodular scarring within the lung bases, normal heart size, there is at least a single subsegmental pulmonary embolism within the left lower lobe the main pulmonary arteries are patent. There were also scattered sclerotic lesions, consistent with prostatic prostate cancer. The abdomen pelvis CT done at today's visit here, demonstrates a small nonobstructing stone noted within the inferior right kidney measuring about 2 mm. There are no ureteral dilatation, or any other ureteral stones at this time. He does also have mild increased stool within the colon. Which he is aware of, and he has ongoing issue with constipation and otherwise due to chronic pain medication use. He is on stool softeners, and does take senna from time to time when needed. At this time, we will go ahead and give him something more for pain management, give the daughter copy of his med list, so she can compare medications at [facility], and have him follow-up with his provider if not much better in a week or 2. Departure - Departure Time of Disposition: 12:30 Disposition: Home, Self-Care 01 Condition: Good Clinical Impression: Right flank pain, Chest pain in adult - Discharge Information *PRESCRIPTION DRUG MONITORING PROGRAM REVIEWED*: Yes *COPY OF PRESCRIPTION DRUG MONITORING REPORT IN PATIENT LASHA: No Instructions: Flank Pain, Adult, [id number] Referrals: Brandon Rockwell MD [Primary Care Provider] - Forms: ED Department Discharge Additional Instructions: You were seen in this ER for a few different complaints. Laboratory evaluation done at today's visit demonstrates no focal abnormalities, you are not suffering from a heart attack at today's visit. Review of your CT done at [place] on 13 April, did demonstrate a small subsegmental pulmonary embolism, and you have been started on Eliquis for this, please continue to take all medications as previously prescribed. It appears you are supposed be taking 2 tablets tablets 2 times a day for 1 week, and then decrease to 1 tablet twice daily until told otherwise by your regular care provider. Urine test at today's visit shows a little bit of blood in the urine, but you do have prostate cancer, so this is likely the cause of the blood since the kidney stone has not dropped into the ureter. Keep your appoint with Dr. Rockwell tomorrow for ongoing management to see if he would like to continue pain medications prescribed at today's visit. You were given a prescription for a strong pain medication, oxycodone/acetaminophen 5/325 mg, please take 1 tab every 6 hours as needed for pain not relieved by Tylenol or ibuprofen alone. Please note this medication does contain Tylenol in it, so do not take more than 4000 mg in a 24-hour time span. These medications can be addictive, so please take as few as possible to achieve adequate pain control. These meds can also be quite constipating, recommend that you increase your oral fluid intake and take a stool softener like MiraLAX while taking these medications. Do not drive while taking this medication. This medication was electronically sent to the [facility] located near [facility]. Do not hesitate to return to the ER at any time if symptoms change or worsen. Sepsis Event Note (ED) - Evaluation Sepsis Screening Result: No Definite Risk - Focused Exam Vital Signs: Vital Signs Temp Pulse Resp BP Pulse Ox 04/19/21 10:34 97.8 F 59 L 18 172/73 H 97 04/19/21 10:29 97.8 F 60 18 172/73 H 97
--- NOTE | 2021-04-19 12:05 | CT ---
CT abdomen and pelvis Technique: Multiple axial sections were obtained from below the dome of the diaphragm inferiorly through the pubic symphysis. Intravenous and oral contrast were not utilized. Study has been performed as a ureteral stone protocol. Findings: Prior abdominal x-ray of 03/24/[address] abdomen and pelvis exam of 03/05/17. Small nonobstructing stone is noted within the inferior right kidney measuring about 2 mm. There is also a small parenchymal calcification within the right kidney. These findings are stable from prior CT exam. Left kidney shows no abnormal calcifications. Left ureter shows no abnormal calcifications. Right ureter also shows no abnormal calcification. Visualized lung bases show diffuse emphysematous change. Small nodule is noted within the left lung base measuring approximately 3.5 mm. Cyst is noted within the left lobe of the liver measuring 1.3 cm. No additional abnormality is appreciated within the visualized liver. Gallbladder contains no calcified gallstones. Spleen size shows no abnormality. Adrenal glands show no nodule. Pancreas is within normal limits. Abdominal aorta shows atherosclerotic calcification which continues into the iliac vessels. No aneurysm is seen. No retroperitoneal adenopathy or mesenteric abnormalities are seen. No pelvic mass or adenopathy is seen. Appendix is questionably present and appears normal in size. There is mild increased stool seen throughout the colon. Bone window settings were reviewed. Diffuse disc space narrowing is noted. Slight spondylolisthesis is seen at L3-4 measuring 5 mm which is due to degenerative apophyseal change. Impression: 1. Small renal stone on the right side. No ureteral dilatation or ureteral stone is seen. 2. 3.5 mm nodule within the left lung base. Recommend follow-up noncontrast chest CT study in 9 months which would occur in January, 3. Mild increased stool within the colon. 4. Other nonacute findings as described above. Diagnostic code #9
== END 2021-04-19 13:15 | disposition home or self-care (01) ==
LOC: JD.ED 10:04
DX: R07.9 Chest pain, unspecified (principal); R10.9 Unspecified abdominal pain; I25.10 Atherosclerotic heart disease of native coronary artery without angina pectoris; E78.00 Pure hypercholesterolemia, unspecified; I10 Essential (primary) hypertension; I25.2 Old myocardial infarction; E03.9 Hypothyroidism, unspecified; Z86.711 Personal history of pulmonary embolism; Z87.891 Personal history of nicotine dependence; Z79.82 Long term (current) use of aspirin; Z79.01 Long term (current) use of anticoagulants; Z79.899 Other long term (current) drug therapy
CPT/HCPCS: 36415; 74176; 80053; 81001; 84484; 85025; 96374; 99285; J1170; 99284